=== PATIENT | female | born 1950 | race Caucasian/White ===

== ENCOUNTER 2016-08-29 01:30 | Inpatient (IN) | payer OTHER ==
[2016-08-29 02:25] VITALS: BP 127/61
[2016-08-29] MEDS ORDERED: Magnesium Hydroxide (MOM) 30 mL UDC PO PRN (03:53)
[2016-08-29] MEDS ORDERED: Maalox 30 mL Cup PO PRN (03:53)
[2016-08-29] MEDS: D5-0.9%NS 1,000 ML IV SCH ×2 (04:27→21:24)
[2016-08-29] MEDS: metroNIDAZOLE 500mg/NS 100mL 500 MG/100 ML BAG IV SCH ×3 (06:27→21:25)
[2016-08-29 08:32] LABS: HEMATOCRIT 31.8 % (35.0-45.0); HEMOGLOBIN 11.1 gm/dL (11.7-15.5); MEAN CELL VOLUME 84.6 fl (81-100); MEAN CORPUSCULAR HEMOGLOBIN 29.5 pg (27.0-31.0); MEAN CORPUSCULAR HGB CONC 34.9 pg (28.0-36.0); MEAN PLATELET VOLUME 8.2 fl; PLATELET COUNT 368 Th/cmm (150-400); RED BLOOD COUNT 3.76 Mil/cmm (3.80-5.10); RED CELL DISTRIBUTION WIDTH 13.8 % (11.5-20.0); WHITE BLOOD COUNT 12.8 Th/cmm (4.8-10.8)
[2016-08-29 08:45] LABS: ALB/GLOB RATIO 1.1 (1.0-1.8); ANION GAP 8.6 (7.0-16.0); BILIRUBIN,TOTAL 0.4 mg/dL (0.3-1.0); BUN/CREATININE RATIO 23.3; CALCIUM SERUM 9.2 mg/dL (8.6-10.3); CARBON DIOXIDE 24.2 mEq/L (21.0-31.0); CREATININE - SERUM 1.2 mg/dL (0.6-1.2); POTASSIUM SERUM 3.8 mEq/L (3.5-5.1)
[2016-08-29] MEDS: Ciprofloxacin 400mg Premix PB 400 MG/200 ML BAG IV SCH ×2 (08:56→18:05)
[2016-08-29 10:07] LABS: BAND NEUTROPHILE 7 % (0-10); NEUTROPHILS 78 % (40-80); PLATELET ESTIMATE ADEQUATE (NORMAL); PLATELET MORPHOLOGY PLATELET CLUMPS SEEN (NORMAL); TOTAL CELLS COUNTED 100
[2016-08-29] MEDS ORDERED: VTE Chemical Prophylaxis Screen/Admission MC PRN (10:30)
[2016-08-29] MEDS: Hydrocodone/APAP 10 mg/325 mg Tab PO PRN (14:56)
[2016-08-29 15:52] LABS: C-REACTIVE PROTEIN 20.8 mg/dL (0.0-0.9)
[2016-08-29] MEDS: Hydrocodone/APAP 5mg/325mg Tab PO PRN (21:24)
--- NOTE | 2016-08-30 00:42 | History & Physical ---
Gilbert Snyder MD covering for Amit. Lillian MD. HISTORY OF PRESENT ILLNESS: This patient is being admitted on transfer from [facility], as she was admitted over there in the Emergency Room with a syncopal episode. According to history obtained from the , the patient is drowsy after giving the pain medicines. She has flu-like symptoms. For that, she was treated, and also having nausea and vomiting at the same time. She started having abdominal pain, got constipated, has had nausea and vomiting and after 3 or 4 days, she started having diarrhea, which was frequent liquid motions. She denies that she has taken any medicine for constipation like a purgative or a laxative. When this was happening, she was feeling very weak and tired. She was getting dizzy on standing out of the bed or out of the chair, especially getting out of the bed. She had these episodes and then fell down on few occasions. Lately, she had sprained her left foot. X-ray was done at [facility], which shows no fracture, but has sprain. As the patient is having these multiple problems going on, the patient is being admitted for further management on transfer from [facility]. At [place] [facility], she underwent a CT abdomen, which shows that she has diverticulosis and some colitis, generalized type, no diverticulitis and this diverticulosis is mainly in the sigmoid colon, and that is why the diffuse wall thickening and colonic edema, has diffuse colitis, especially sigmoid colon. 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 Multiple degenerative joint disease. Liver is normal. Gallbladder is unremarkable. The spleen, pancreas and adrenal glands are unremarkable. Some perinephric free fluid, small amount, could be secondary to infection. Her leukocytes were showing above 18 and lactate was 2. Here on lab work showing she has leukocytosis with WBC count of 12.8 with a left shift. Sodium is elevated at 134 and BUN is elevated slightly to 28, glucose 136, C-reactive protein is 20, albumin is 3.2. PAST MEDICAL HISTORY: History of hypertension, has had some hemorrhage to the right eye and is scheduled for the MRI of the right orbit for further ophthalmological treatment. Has history of CVA. Partial bowel resection. ALLERGIES: None known. PERSONAL HISTORY: Smoking 1 pack per day since age of the late teens and early 20s until 2 years ago. Denies of any drug or alcohol abuse. FAMILY HISTORY: Nothing contributory. REVIEW OF SYSTEMS: Nothing contributory except as mentioned above. PHYSICAL EXAMINATION: GENERAL: The patient is a 66-year-old female. She is sleepy and lethargic at this time. Not in acute distress. VITAL SIGNS: Temperature is 98.5 to 98.8, heart rate is 97, blood pressure 101/57, had been first 100/71, respiration is 18 to 20 range and O2 saturation on 2 L by nasal cannula is 89% to 92%. HEENT: Normal, although the vision could not be evaluated as the patient is sleepy. NECK: Supple. JVP is flat. No lymphadenopathy. CHEST: Equal lung bilaterally. No chest wall tenderness. LUNGS: Clinically clear. CARDIOVASCULAR SYSTEM: PMI not palpable. Heart sounds are normal. No gallop or murmur is appreciated. ABDOMEN: Soft, but tender in the left lower quadrant area. Bowel sounds are present. [employer]: Grossly normal. EXTREMITIES: No edema. No cyanosis. Left foot has some edema with obvious tenderness and there is a sprain post-injury. IMPRESSION: Abdominal pain, nausea, vomiting and diarrhea, etiology undetermined at this time, possible colitis causing this problem, to be evaluated further. Hypertension is controlled. The syncopal episode most likely secondary to dehydration and causing postural hypotension, has prerenal azotemia secondary to dehydration. Hypertension is controlled. Possibility of sepsis is yet to be evaluated. History of cerebrovascular accident, history of right eye hemorrhage and other medical problem as above. PLAN: Dr. Whitley for ID consult has been requested and who has seen the patient already, started IV antibiotics. Keep her with some liquid diet, control nausea, vomiting and diarrhea. Correct the electrolytes as needed. Further workup and management as needed. JOB# [id number] [facility] DIVISIONPe[facility]
[2016-08-30] MEDS: Hydrocodone/APAP 5mg/325mg Tab PO PRN (03:55)
[2016-08-30] MEDS: Ciprofloxacin 400mg Premix PB 400 MG/200 ML BAG IV SCH ×2 (04:11→16:36)
[2016-08-30] MEDS: metroNIDAZOLE 500mg/NS 100mL 500 MG/100 ML BAG IV SCH ×3 (05:35→20:25)
[2016-08-30] MEDS: Hydrocodone/APAP 10 mg/325 mg Tab PO PRN ×2 (06:41→13:14)
[2016-08-30 07:28] LABS: % BASOPHILS 0.6 % (0.0-2.0); % EOSINOPHILS 0.5 % (0.0-5.0); % LYMPHOCYTES 13.7 % (20.0-50.0); % MONOCYTES 7.3 % (2.0-10.0); % NEUTROPHILS 77.9 % (40.0-80.0); HEMATOCRIT 29.3 % (35.0-45.0); HEMOGLOBIN 10.2 gm/dL (11.7-15.5); MEAN CELL VOLUME 84.6 fl (81-100); MEAN CORPUSCULAR HEMOGLOBIN 29.3 pg (27.0-31.0); MEAN CORPUSCULAR HGB CONC 34.7 pg (28.0-36.0); MEAN PLATELET VOLUME 8.1 fl; NEUTROPHILE ABSOLUTE 9.3 Th/cmm (1.8-8.0); PLATELET COUNT 348 Th/cmm (150-400); RED BLOOD COUNT 3.46 Mil/cmm (3.80-5.10); RED CELL DISTRIBUTION WIDTH 13.8 % (11.5-20.0)
[2016-08-30 07:48] LABS: ANION GAP 4.1 (7.0-16.0); BUN - UREA NITROGEN 16 mg/dL (7-25); CALCIUM SERUM 8.8 mg/dL (8.6-10.3); CARBON DIOXIDE 25.2 mEq/L (21.0-31.0); CHLORIDE 107 mEq/L (98-107); GLUCOSE 123 mg/dL (70-105); POTASSIUM SERUM 3.3 mEq/L (3.5-5.1); SODIUM SERUM 133 mEq/L (136-145)
[2016-08-30] MEDS: D5-0.9%NS 1,000 ML IV SCH (11:32)
[2016-08-30 12:43] LABS: URINE BILIRUBIN NEGATIVE (NEGATIVE); URINE BLOOD MODERATE (NEGATIVE); URINE COLOR YELLOW; URINE GLUCOSE (UA) NEGATIVE (NEGATIVE); URINE KETONE NEGATIVE (NEGATIVE); URINE PH 5.5; URINE PROTEIN TRACE mg/dL (NEGATIVE); URINE UROBILINOGEN 0.2 E.U./dL (0.2 - 1.0)
[2016-08-30 12:50] LABS: URINE BACTERIA MANY /hpf (NONE SEEN); URINE EPITHELIAL CELLS MODERATE /lpf (FEW)
[2016-08-30] MEDS ORDERED: Potassium Chloride 20 mEq ER Tab PO ONE (13:00)
--- NOTE | 2016-08-30 15:58 | Consultation ---
GASTROENTEROLOGY CONSULTATION REFERRING PHYSICIAN: Benigno Snyder M.D. REASON FOR CONSULTATION: Abdominal pain. HISTORY OF PRESENT ILLNESS: A 66-year-old female with history of old TIA, hypertension, partial bowel obstruction and C. diff colitis a year ago, admitted for a few day history of abdominal pain, nausea, vomiting and diarrhea. She initially had constipation. She had leukocytosis on admission at [place]. She was transferred here for further evaluation. A CT scan of the abdomen and pelvis at [place] showed pancolitis and diverticulosis. PAST MEDICAL HISTORY: As above. The patient never had a previous colonoscopy. PAST SURGICAL HISTORY: As above. MEDICATIONS: Here are Tylenol, [place], Maalox, Cipro, Flagyl, heparin subcutaneous, Ativan, Milk of Magnesia p.r.n., Zofran. ALLERGIES: No known drug allergies. SOCIAL HISTORY: Positive tobacco, no alcohol, no drugs. FAMILY HISTORY: Noncontributory. REVIEW OF SYSTEMS: Negative. PHYSICAL EXAMINATION: VITAL SIGNS: Temperature of 98.3, blood pressure is 131/85, pulse of 85, respirations 20, O2 sats 95% on 2 liters. GENERAL: The patient is well-developed, well-nourished female who is in mild distress. HEENT: Sclerae nonicteric. Oropharynx is clear. CARDIOVASCULAR: Regular rate and rhythm. LUNGS: Clear to auscultation bilaterally. ABDOMEN: Soft, slightly distended, mild left and lower quadrant tenderness to palpation without rebound or guarding. EXTREMITIES: No clubbing, cyanosis or edema. RECTAL: Deferred. LABORATORY DATA AND IMAGING: Initial WBC at [place] was 18, today is 12.0, hemoglobin is 10.2, platelet count is normal. Sodium 133, creatinine is 1.0. Liver enzymes are normal. CRP is elevated to 20.8. ASSESSMENT: 1. Abdominal pain with diarrhea and CT showing pancolitis, likely suggestive of C. diff colitis. Less likely other infectious colitis or perhaps ischemic colitis, history of C. diff colitis a year ago. 2. Leukocytosis, now improved. 3. Anemia. 4. History of old stroke and hypertension. 5. History of partial bowel resection. RECOMMENDATIONS: 1. Check stool studies. 2. Flagyl to be continued, ID home sales consultant on case. Consider oral Flagyl as well. 3. Add probiotics. 4. Clear liquid diet for now. Consider n.p.o. status if distention or leukocytosis worsen. 5. Eventual colonoscopy once C. diff colitis healed. This can be done as an outpatient. Thank you, Dr. Benigno Snyder for involving us in the care of your patient. Any further questions, please call us. JOB# [id number]
--- NOTE | 2016-08-30 20:33 | Consultation ---
PRIMARY CARE PHYSICIAN: Dr. Snyder. HISTORY OF PRESENT ILLNESS: This is a 66-year-old female who was initially taken to [facility] with abdominal pain localized to the upper and left side of the abdomen. The patient also was constipated and the patient's CAT scan shows colitis more on the sigmoid colon. The patient was transferred to [facility] for further treatment. Discussed with the family at bedside. Pertinent information obtained. The patient is unable to provide details of the history. PAST MEDICAL HISTORY: Hypertension, retinal hemorrhage, CVA, and bowel surgery. ALLERGIES: None. SOCIAL HISTORY: Ex-smoker. FAMILY HISTORY: No family history. REVIEW OF SYSTEMS: A 14-point review of systems negative. PHYSICAL EXAMINATION: GENERAL: The patient is an elderly female. VITAL SIGNS: Temperature 98.8, pulse 97, respirations 18, and blood pressure 101/57. HEENT: Mild pallor, no icterus or plaque. NECK: Supple. LUNGS: Breath sounds bilateral vesicular. CARDIOVASCULAR: S1, S2. ABDOMEN: Soft. Generalized abdominal tenderness. No thyroid and no cervical lymph nodes. No ascites. No rebound tenderness. LABORATORY DATA: Cultures are pending. White count 12,000, hemoglobin is 11 g, and platelets 368,000. DIAGNOSIS: Colitis. PLAN: We will check C. diff and stool culture. Empirically, the patient was started on Flagyl and Cipro. Supportive care. Repeat labs tomorrow. Rest of the care as ordered in CPOE. Thank you, Dr. Snyder for this consultation. JOB# [id number]
[2016-08-31] MEDS: D5-0.9%NS 1,000 ML IV SCH ×2 (01:55→17:45)
[2016-08-31] MEDS: Ciprofloxacin 400mg Premix PB 400 MG/200 ML BAG IV SCH ×2 (04:19→17:46)
--- NOTE | 2016-08-31 04:22 | Admit Criteria Form ---
Admit Criteria Forms - Admit Criteria Diagnosis: DEHYDRATION Clinical Indications for Admission to Inpatient Care (Place 'X' for any and all applicable criteria): Admission is indicated for ANY ONE of the following (1)(2)(3)(4)(5): [ X]I. Inpatient admission required rather than observation care (see Dehydration: Observation Care guideline as appropriate) because of ANY ONE of the following: [ ]a) Vomiting that is severe or persistent [ ]b) Severe electrolyte abnormalities requiring inpatient care [X ]c) Hemodynamic instability [ ]d) IV fluid to replace significant ongoing losses (greater than 3 L/m2 per day (10) (11) [ ]e) Parenteral nutrition regimen that must be implemented on inpatient basis [X ]f) Other condition,treatment or monitoring requiring inpatient admission [ ]II. Serious cause for dehydration requiring acute hospitalization (eg, bowel obstruction, increased intracranial pressure, infectious cause) Extended stay beyond goal length of stay may be needed for(1)(3 )(4)(17): [ ]a) Chronic severe dehydration [ ]b) Persistent vital sign changes, severe electrolyte imbalance, or diagnosed cause of dehydration that requires continued hospitalization (eg, bowel obstruction, increased intracranial pressure) [ ]c) Older patients (65 years or older) [ ]d) Severe comorbid illness (eg, renal failure, heart failure, poorly controlled diabetes) The original [employer] content created by [employer] has been revised. The portions of the content which have been revised are identified through the use of italic text or in bold, and [facility] has neither reviewed nor approved the modified material. All other unmodified content is copyright [facility]. Please see references footnoted in the original [facility] edition 2016 Admit Criteria Met?: Yes
[2016-08-31] MEDS: metroNIDAZOLE 500mg/NS 100mL 500 MG/100 ML BAG IV SCH ×3 (05:30→20:37)
[2016-08-31] MEDS: Hydrocodone/APAP 5mg/325mg Tab PO PRN ×2 (05:30→13:26)
[2016-08-31 07:57] LABS: ANION GAP 8.7 (7.0-16.0); BUN - UREA NITROGEN 7 mg/dL (7-25); BUN/CREATININE RATIO 8.8; CALCIUM SERUM 8.9 mg/dL (8.6-10.3); CARBON DIOXIDE 24.8 mEq/L (21.0-31.0); CHLORIDE 105 mEq/L (98-107); CREATININE - SERUM 0.8 mg/dL (0.6-1.2); GLUCOSE 125 mg/dL (70-105); POTASSIUM SERUM 3.5 mEq/L (3.5-5.1); SODIUM SERUM 135 mEq/L (136-145)
[2016-08-31] MEDS: Hydrocodone/APAP 10 mg/325 mg Tab PO PRN (22:11)
[2016-09-01] MEDS: metroNIDAZOLE 500mg/NS 100mL 500 MG/100 ML BAG IV SCH ×3 (04:24→20:29)
[2016-09-01] MEDS: Hydrocodone/APAP 10 mg/325 mg Tab PO PRN ×2 (05:35→20:29)
[2016-09-01] MEDS: Ciprofloxacin 400mg Premix PB 400 MG/200 ML BAG IV SCH ×2 (06:02→16:10)
[2016-09-01] MEDS: D5-0.9%NS 1,000 ML IV SCH ×2 (06:06→16:32)
[2016-09-01 07:41] LABS: % EOSINOPHILS 2.3 % (0.0-5.0); % LYMPHOCYTES 22.1 % (20.0-50.0); % MONOCYTES 5.8 % (2.0-10.0); % NEUTROPHILS 68.8 % (40.0-80.0); HEMATOCRIT 27.1 % (35.0-45.0); HEMOGLOBIN 9.3 gm/dL (11.7-15.5); MEAN CORPUSCULAR HEMOGLOBIN 29.5 pg (27.0-31.0); MEAN CORPUSCULAR HGB CONC 34.2 pg (28.0-36.0); MEAN PLATELET VOLUME 7.8 fl; NEUTROPHILE ABSOLUTE 5.1 Th/cmm (1.8-8.0); PLATELET COUNT 361 Th/cmm (150-400); RED BLOOD COUNT 3.16 Mil/cmm (3.80-5.10); RED CELL DISTRIBUTION WIDTH 13.5 % (11.5-20.0)
[2016-09-01 08:07] LABS: ANION GAP 6.8 (7.0-16.0); BUN - UREA NITROGEN 4 mg/dL (7-25); CALCIUM SERUM 8.7 mg/dL (8.6-10.3); CARBON DIOXIDE 28.9 mEq/L (21.0-31.0); CHLORIDE 105 mEq/L (98-107); CREATININE - SERUM 0.8 mg/dL (0.6-1.2); GLUCOSE 166 mg/dL (70-105); POTASSIUM SERUM 3.7 mEq/L (3.5-5.1); SODIUM SERUM 137 mEq/L (136-145)
[2016-09-01 08:13] LABS: WHITE BLOOD COUNT 7.4 Th/cmm (4.8-10.8)
--- NOTE | 2016-09-01 15:10 | Infectious Disease Prog Note ---
Infectious Disease Subjective - Review of Systems Service Date: 09/01/16 Subjective: cc colitis hpi- pt wbc 7k on iv bxa ros no fever o/e vss chets claer abd soft less tender dx diverticuliutios plan cipro flagyl; Physical Exam: General: Alert and Oriented x3, No Acute Distress HEENT: EOMI Bilaterally, PERRLA Bilaterally, Head is normocephalic, atraumatic on inspection. Cardio: +S1/S2 Auscultated, RRR, no murmurs/rubs/gallops noted Respiratory: Clear to Auscultate Bilaterally Abdominal: Soft, Nondistended, tender to palpation x 4 quadrants Genital/Urinary: Extremities: No Edema noted in the lower extremities Neurological: Cranial Nerves II-XII intact bilaterally, Gait Steady, No Focal Deficits noted. Infectious Disease Objective - Results Result Diagrams: 09/01/16 07:18 09/01/16 07:18 Recent Labs: Laboratory Last Values WBC 7.4 Th/cmm (4.8-10.8) D 09/01/16 07:18 RBC 3.16 Mil/cmm (3.80-5.10) L 09/01/16 07:18 Hgb 9.3 gm/dL (11.7-15.5) L 09/01/16 07:18 Hct 27.1 % (35.0-45.0) L 09/01/16 07:18 MCV 86.0 fl (81-100) 09/01/16 07:18 MCH 29.5 pg (27.0-31.0) 09/01/16 07:18 MCHC Differential 34.2 pg (28.0-36.0) 09/01/16 07:18 RDW 13.5 % (11.5-20.0) 09/01/16 07:18 Plt Count 361 Th/cmm (150-400) 09/01/16 07:18 MPV 7.8 fl 09/01/16 07:18 Neutrophils % 68.8 % (40.0-80.0) 09/01/16 07:18 Band Neutrophils % 7 % (0-10) 08/29/16 07:55 Lymphocytes % 22.1 % (20.0-50.0) 09/01/16 07:18 Monocytes % 5.8 % (2.0-10.0) 09/01/16 07:18 Eosinophils % 2.3 % (0.0-5.0) 09/01/16 07:18 Basophils % 1.0 % (0.0-2.0) 09/01/16 07:18 Neutrophils (Manual) 78 % (40-80) 08/29/16 07:55 Lymphocytes 12 % (20-50) L 08/29/16 07:55 Monocytes 3 % (2-10) 08/29/16 07:55 Platelet Estimate ADEQUATE (NORMAL) 08/29/16 07:55 Platelet Morphology PLATELET CLUMPS SEEN (NORMAL) 08/29/16 07:55 RBC Morph Micro Appear NORMAL (NORMAL) 08/29/16 07:55 ESR 73 mm/hr (0-30) H 09/01/16 07:18 Sodium 137 mEq/L (136-145) 09/01/16 07:18 Potassium 3.7 mEq/L (3.5-5.1) 09/01/16 07:18 Chloride 105 mEq/L (98-107) 09/01/16 07:18 Carbon Dioxide 28.9 mEq/L (21.0-31.0) 09/01/16 07:18 Anion Gap 6.8 (7.0-16.0) L 09/01/16 07:18 BUN 4 mg/dL (7-25) L 09/01/16 07:18 Creatinine 0.8 mg/dL (0.6-1.2) 09/01/16 07:18 Est GFR ( Amer) > 60.0 ml/min (>90) 09/01/16 07:18 Est GFR (Non-Af Amer) > 60.0 ml/min 09/01/16 07:18 BUN/Creatinine Ratio 5.0 09/01/16 07:18 Glucose 166 mg/dL (70-105) H 09/01/16 07:18 Calcium 8.7 mg/dL (8.6-10.3) 09/01/16 07:18 Total Bilirubin 0.4 mg/dL (0.3-1.0) 08/29/16 07:55 AST 11 U/L (13-39) L 08/29/16 07:55 ALT 8 U/L (7-52) 08/29/16 07:55 Alkaline Phosphatase 77 U/L (34-104) 08/29/16 07:55 C-Reactive Protein 6.00 mg/dL (0.0-0.9) H 09/01/16 07:18 Total Protein 6.2 gm/dL (6.0-8.3) 08/29/16 07:55 Albumin 3.2 gm/dL (3.7-5.3) L 08/29/16 07:55 Globulin 3.0 gm/dL 08/29/16 07:55 Albumin/Globulin Ratio 1.1 (1.0-1.8) 08/29/16 07:55 Urine Source CLEAN C 08/30/16 12:00 Urine Color YELLOW 08/30/16 12:00 Urine Clarity SL. CLOUDY (CLEAR) 08/30/16 12:00 Urine pH 5.5 08/30/16 12:00 Ur Specific Dennis (1.005-1.030) 08/30/16 12:00 Urine Protein TRACE mg/dL (NEGATIVE) 08/30/16 12:00 Urine Glucose (UA) NEGATIVE mg/dL (NEGATIVE) 08/30/16 12:00 Urine Ketones NEGATIVE mg/dL (NEGATIVE) 08/30/16 12:00 Urine Blood MODERATE (NEGATIVE) H 08/30/16 12:00 Urine Nitrate NEGATIVE (NEGATIVE) 08/30/16 12:00 Urine Bilirubin NEGATIVE (NEGATIVE) 08/30/16 12:00 Urine Urobilinogen 0.2 E.U./dL (0.2 - 1.0) 08/30/16 12:00 Ur Leukocyte Esterase SMALL (NEGATIVE) H 08/30/16 12:00 Urine RBC 3-6 /hpf (0-5) 08/30/16 12:00 Urine WBC 10-25 /hpf (0-5) H 08/30/16 12:00 Ur Epithelial Cells MODERATE /lpf (FEW) 08/30/16 12:00 Urine Bacteria MANY /hpf (NONE SEEN) 08/30/16 12:00 Stool Leukocyte NO WBC SEEN 08/31/16 08:10 - Physical Exam Vitals and I&O: Vital Signs Temp 97.4 F 09/01/16 12:07 Pulse 88 09/01/16 12:07 Resp 20 09/01/16 12:07 BP 143/69 09/01/16 12:07 Pulse Ox 98 09/01/16 12:07 Intake & Output 08/31/16 09/01/16 09/01/16 18:59 06:59 18:59 Intake Total 1540 1400 Balance 1540 1400 Intake: Intake, IV Amount 1300 1200 Ciprofloxacin 400mg 200 Premix PB 400 mg In 200 ml @ 200 mls/hr IV Q12H [facility] Rx#:[id number] D5-0.9%Ns 1,000 ml @ 100 1000 1000 mls/hr IV .Q10H [facility] Rx#: [id number] metroNIDAZOLE 500mg/NS 100 200 100mL 500 mg In 100 ml @ 100 mls/hr IV Q8HR [facility] Rx #:[id number] Oral 240 200 Other: # Voids 5 2 # Bowel Movements 3 Stool Characteristics Soft Soft Liquid Liquid Active Medications: Current Medications Acetaminophen (Tylenol) 650 mg PO Q6H PRN PRN Reason: Mild Pain/Headache/T above 101 Stop: 10/28/16 03:52 Acetaminophen/Hydrocodone Bitart ([place] 10 Mg/325 Mg) 1 tab PO Q6H PRN PRN Reason: Pain (Severe) Stop: 10/28/16 03:52 Last Admin: 09/01/16 05:35 Dose: 1 tab Acetaminophen/Hydrocodone Bitart ([place] 5mg/325mg) 1 tab PO Q6H PRN PRN Reason: Moderate Pain Stop: 10/28/16 03:52 Last Admin: 08/31/16 13:26 Dose: 1 tab Al Hydrox/Mg Hydrox/Simethicone (Maalox) 30 ml PO Q6H PRN PRN Reason: Constipation Stop: 10/28/16 03:52 Heparin Sodium (Porcine) (Heparin) 5,000 units SUBQ Q12HR [facility] Stop: 10/28/16 20:59 Last Admin: 09/01/16 09:47 Dose: 5,000 units Dextrose/Sodium Chloride (D5-0.9%Ns) 1,000 mls @ 100 mls/hr IV .Q10H [facility] Stop: 10/28/16 03:59 Last Admin: 09/01/16 06:06 Dose: 100 mls/hr Ciprofloxacin (Cipro 400mg Premix Pb) 400 mg in 200 mls @ 200 mls/hr IV Q12H [facility] Stop: 10/28/16 04:59 Last Admin: 09/01/16 06:02 Dose: 200 mls/hr Metronidazole (Flagyl) 500 mg in 100 mls @ 100 mls/hr IV Q8HR [facility] Stop: 10/28/16 04:59 Last Admin: 09/01/16 14:14 Dose: 100 mls/hr Lorazepam (Ativan) 1 mg PO Q6H PRN; Protocol PRN Reason: Anxiety/Agitation Stop: 10/28/16 03:52 Magnesium Hydroxide (Milk Of Magnesia) 30 ml PO HS PRN PRN Reason: Constipation Stop: 10/28/16 03:52 Miscellaneous (Vte Chemical Prophylaxis Screen/ Admission) 1 ea [facility] PRN PRN PRN Reason: PROTOCOL Stop: 10/28/16 10:29 Ondansetron HCl (Zofran) 4 mg IVP Q6H PRN PRN Reason: Nausea / Vomiting Stop: 10/28/16 03:52 Last Admin: 08/31/16 01:55 Dose: 4 mg
[2016-09-01] MEDS: Hydrocodone/APAP 5mg/325mg Tab PO PRN (16:10)
--- NOTE | 2016-09-01 17:50 | Progress Notes ---
SUBJECTIVE: The patient is awake, alert. The patient is on oxygenation. The patient is on IV antibiotics. The patient is on IV fluids. The patient complains of abdominal pain. PHYSICAL EXAMINATION: VITAL SIGNS: Temperature 98.2, pulse 87, blood pressure 158/67, respiratory rate 18, pulse ox 97% on 2 L nasal cannula. CARDIOVASCULAR: S1 and S2. RESPIRATORY: Few rales. ABDOMEN: Soft, diffuse tenderness, nondistended, positive bowel sounds. LABORATORY DATA: Hematology: No hematology for today. Chemistry: Sodium 135, potassium 3.5, chloride 105, bicarbonate 24, anion gap 8.7, BUN 7, creatinine 0.8, GFR is more 60, glucose 125, calcium 8.9. Microbiology: MRSA screen negative. Culture from 08/30/2016 pending. Stool study is pending. ASSESSMENT: 1. Sepsis. 2. Abdominal pain. 3. Diarrhea. 4. Pancolitis. 5. Nausea and vomiting (improved). 6. Hypertension. 7. Syncope (secondary to dehydration). 8. History of hemorrhage to right eye. 9. History of cerebrovascular accident. 10. Status post partial bowel obstruction. 11. History of tobacco abuse. PLAN: Continue current medications and treatment. Continue IV fluids. Awaiting culture results. Further recommendation per consult service. [facility]# [id number] [facility]
[2016-09-01] MEDS ORDERED: GENTAMICIN 40 MG/ML ONE ×2 (19:33→21:22)
[2016-09-01] MEDS: Gentamicin 100mg/100mL Premix Bag IV SCH (23:42)
[2016-09-02] MEDS: metroNIDAZOLE 500mg/NS 100mL 500 MG/100 ML BAG IV SCH ×3 (04:55→20:36)
[2016-09-02] MEDS: Ciprofloxacin 400mg Premix PB 400 MG/200 ML BAG IV SCH ×2 (05:51→17:20)
--- NOTE | 2016-09-02 06:15 | Progress Notes ---
SUBJECTIVE: The patient is awake, alert. The patient is on IV antibiotics. The patient is on IV fluids. The patient is on clear liquid diet. The patient has complaints of abdominal pain. PHYSICAL EXAMINATION: VITAL SIGNS: Temperature 97.4, pulse 88, blood pressure 143/69, respiratory rate 20. CARDIOVASCULAR: S1 and S2. RESPIRATORY: Few rales. ABDOMEN: Soft, positive bowel sounds, diffuse tenderness, nondistended. LABORATORY DATA: Hematology: WBC 7.4, hemoglobin 9.3, hematocrit 27.1, platelet count of 361. ESR is 73. Chemistry: Sodium 137, potassium 3.7, chloride 105, bicarbonate 28.9, anion gap 6.8, BUN 4, creatinine 0.8, GFR is more than 60, glucose 166, calcium 8.7. Microbiology: MRSA screening from August 29 negative. Urine culture from August 30 pending. Blood culture from August 31 pending. Shigella toxin from August 31 negative. ASSESSMENT: 1. Abdominal pain (improved). 2. Nausea/vomiting, (resolved). 3. Diarrhea (resolved). 4. Pancolitis. 5. Hypertension. 6. Syncope (resolved). 7. History of cerebrovascular accident. 8. Status post partial bowel resection. 9. Leukocytosis (improved). 10. Anemia. 11. Hyperglycemia. PLAN: Continue current medication. Obtain labs a.m. Await final culture results. Continue advanced diet as tolerated. JOB# [id number] MTDD
[2016-09-02 07:00] LABS: % BASOPHILS 1.1 % (0.0-2.0); % EOSINOPHILS 2.4 % (0.0-5.0); % LYMPHOCYTES 19.2 % (20.0-50.0); % MONOCYTES 7.1 % (2.0-10.0); % NEUTROPHILS 70.2 % (40.0-80.0); HEMATOCRIT 29.6 % (35.0-45.0); HEMOGLOBIN 10.1 gm/dL (11.7-15.5); MEAN CELL VOLUME 85.4 fl (81-100); MEAN PLATELET VOLUME 7.9 fl; NEUTROPHILE ABSOLUTE 5.4 Th/cmm (1.8-8.0); PLATELET COUNT 380 Th/cmm (150-400); RED BLOOD COUNT 3.47 Mil/cmm (3.80-5.10); RED CELL DISTRIBUTION WIDTH 14.2 % (11.5-20.0); WHITE BLOOD COUNT 7.8 Th/cmm (4.8-10.8)
[2016-09-02 07:07] LABS: ANION GAP 4.5 (7.0-16.0); BUN - UREA NITROGEN 3 mg/dL (7-25); BUN/CREATININE RATIO 4.3; CARBON DIOXIDE 30.4 mEq/L (21.0-31.0); CHLORIDE 105 mEq/L (98-107); CREATININE - SERUM 0.7 mg/dL (0.6-1.2); GLUCOSE 137 mg/dL (70-105); SODIUM SERUM 137 mEq/L (136-145)
[2016-09-02 07:24] LABS: POTASSIUM SERUM 2.9 mEq/L (3.5-5.1)
[2016-09-02] MEDS: Gentamicin 100mg/100mL Premix Bag IV SCH ×2 (08:33→11:22)
[2016-09-02] MEDS: Hydrocodone/APAP 10 mg/325 mg Tab PO PRN ×2 (08:56→22:44)
[2016-09-02] MEDS: D5-0.9%NS 1,000 ML IV SCH (10:47)
[2016-09-02] MEDS ORDERED: Potassium Chloride 40 MEQ, Lidocaine 1% 20mL Vial 25 MG in Sodium Chloride 0.9% 250 ML IV ONE (11:00)
[2016-09-02] MEDS ORDERED: Magnesium Citrate 1.75 GM/300 mL Bottle PO ONE (21:07)
[2016-09-02] MEDS ORDERED: Magnesium Citrate 1.75 GM/300 mL Bottle PO SCH (21:30)
[2016-09-02] MEDS ORDERED: GENTAMICIN 40 MG/ML ONE (22:59)
[2016-09-03] MEDS: D5-0.9%NS 1,000 ML IV SCH ×2 (01:29→16:19)
[2016-09-03] MEDS: metroNIDAZOLE 500mg/NS 100mL 500 MG/100 ML BAG IV SCH ×3 (04:38→23:22)
--- NOTE | 2016-09-03 05:32 | Progress Notes ---
SUBJECTIVE: The patient is awake and alert. Per , the patient is more lethargic. The patient is on IV antibiotics. The patient is on IV fluids. The patient is on oxygen via nasal cannula. The patient is receiving inpatient rehab therapy. PHYSICAL EXAMINATION: VITAL SIGNS: Temperature 97.2, pulse 80, blood pressure 141/64, respiration 16, O2 sat 94% on 2 liters nasal cannula. CARDIAC: S1, S2. RESPIRATORY: A few rales. GASTROINTESTINAL: Soft and tender. Positive bowel sounds. LABORATORY DATA: Hematology: WBC 7.8, hemoglobin 10.1, hematocrit 29.6, and platelet count of 380,000. 19% lymphocytes, ESR 68. Chemistry: Sodium 137, potassium 2.9, chloride 105, bicarb 30, anion gap of 4.5, BUN 3, creatinine 0.7, GFR 160. Glucose is 137. Calcium 9.0. Microbiology: MRA screen from 08/29/2016, negative. Urine culture from 08/30/2016, shows mixed urogenital janessa including yeast. Blood culture from 08/31/2016, shows no growth. Stool culture from 08/31/2016, shows yeast only. Shiga toxin from 08/31/2016, negative. ASSESSMENT: 1. Anemia. 2. Hyperkalemia. 3. Hyperglycemia. 4. Abdominal pain (improved). 5. Sepsis. 6. Pancolitis. 7. Diarrhea (resolved). 8. Nausea and vomiting (improved). 9. Hypertension. 10. Syncope (secondary to dehydration). 11. History of hemorrhage, right eye. 12. History of cerebrovascular accident. 13. Status post bowel resection. 14. History of tobacco abuse. PLAN: Continue current medication and treatment. Continue IV fluids. Awaiting final culture results. Continue advanced diet as tolerated. Further recommendations per consults. JOB# [id number]
[2016-09-03] MEDS: Ciprofloxacin 400mg Premix PB 400 MG/200 ML BAG IV SCH ×2 (05:56→16:19)
[2016-09-03 07:01] LABS: % EOSINOPHILS 1.8 % (0.0-5.0); % LYMPHOCYTES 20.2 % (20.0-50.0); % MONOCYTES 6.2 % (2.0-10.0); % NEUTROPHILS 71.8 % (40.0-80.0); HEMATOCRIT 30.9 % (35.0-45.0); HEMOGLOBIN 10.6 gm/dL (11.7-15.5); MEAN CELL VOLUME 86.6 fl (81-100); MEAN CORPUSCULAR HEMOGLOBIN 29.6 pg (27.0-31.0); MEAN CORPUSCULAR HGB CONC 34.2 pg (28.0-36.0); MEAN PLATELET VOLUME 7.8 fl; PLATELET COUNT 386 Th/cmm (150-400); RED BLOOD COUNT 3.57 Mil/cmm (3.80-5.10); WHITE BLOOD COUNT 8.3 Th/cmm (4.8-10.8)
[2016-09-03 07:09] LABS: INR 1.79 (0.5-1.4); PROTHROMBIN TIME (TEST) 18.4 SECONDS (9.5-11.5)
[2016-09-03 08:26] LABS: ANION GAP 2.7 (7.0-16.0); BUN - UREA NITROGEN 3 mg/dL (7-25); CALCIUM SERUM 8.8 mg/dL (8.6-10.3); CHLORIDE 104 mEq/L (98-107); CREATININE - SERUM 0.6 mg/dL (0.6-1.2); GLUCOSE 135 mg/dL (70-105); SODIUM SERUM 136 mEq/L (136-145)
[2016-09-03 08:30] LABS: POTASSIUM SERUM 2.7 mEq/L (3.5-5.1)
[2016-09-03] MEDS ORDERED: Potassium Chloride 40 MEQ, Lidocaine 1% 20mL Vial 25 MG in Sodium Chloride 0.9% 250 ML IV ONE (09:15)
--- NOTE | 2016-09-03 09:22 | Diagnostic Imaging Report ---
CHEST X-RAY: AP view INDICATION: Shortness of breath COMPARISON: None FINDINGS: There is complete opacification of the left hemithorax. Heart size cannot be assessed on this exam. The right lung demonstrates no focal consolidation. The osseous structures are intact. IMPRESSION: Complete opacification of the left hemithorax which may be due to lung collapse and pleural effusion and possible superimposed pneumonia. There may have been surgery of the left lung. Please correlate with clinical findings and old exams. Short-term follow-up CT of the chest would also provide for additional detail and assessment. Atherosclerotic vascular disease. Results were administered to the referring team on 09/03/2016
[2016-09-03] MEDS ORDERED: Magnesium Citrate 1.75 GM/300 mL Bottle PO ONE (09:42)
[2016-09-03] MEDS: Hydrocodone/APAP 10 mg/325 mg Tab PO PRN ×2 (11:34→17:10)
[2016-09-03] MEDS ORDERED: IOHEXOL 300MG/ML 100 ML VIAL IVP ONE (14:16)
--- NOTE | 2016-09-03 15:17 | Diagnostic Imaging Report ---
CT Chest with IV contrast HISTORY: Left lung opacification, pneumonia, effusion COMPARISON: Chest x-ray earlier the same day. Technique: Axial images were obtained from the base of the neck to the upper abdomen following administration of IV contrast. Coronal reconstructions were made. Total DLP 209, CTD I 6.8 Findings: Abnormal soft tissue density with areas of low density are seen along the pericarinal regions extending to the left hilar region with likely enlarged left AP window lymph node measuring 2.5 x 1.8 cm. There is also 4.0 x 3.6 cm soft tissue density along the left hilum with encasement of the left pulmonary vasculature including marked encasement and decreased caliber of the left pulmonary arteries and. There is also indicate and obliteration of the left main stem bronchi and collapse of the left lung. Atelectatic right lung changes are noted. A moderate sized left effusion is noted. Heart size is within normal limits. Atherosclerosis is noted including coronary artery calcifications. The upper abdomen demonstrates diffuse atherosclerosis with there is a calcified and soft plaque formation. IMPRESSION: Large abnormal soft tissue density along the left hilar region with involvement of the mediastinum and a few prominent mediastinal lymph nodes which may be partially necrotic. There is encasement and partial obliteration of the left hilar vasculature including the pulmonary arteries with marked decrease in caliber and probable invasion into the left pulmonary arteries. There is also obliteration of the left mainstem bronchus. These findings are most insurance account representative of neoplastic process/probable primary bronchogenic lung cancer. Please correlate clinically. Follow-up recommended. Moderate atherosclerosis.
[2016-09-03] MEDS: Albuterol/Ipratropium Neb 3 ML AERS HHN SCH ×2 (15:48→20:03)
[2016-09-03] MEDS: Budesonide 0.5 Mg/2 mL Ud HHN SCH (20:03)
--- NOTE | 2016-09-03 21:08 | Consultation ---
HEMATOLOGY AND ONCOLOGY CONSULTATION REFERRING PHYSICIAN: Dr. Benigno Snyder. REASON FOR CONSULTATION: Lung mass, possible cancer. HISTORY OF PRESENT ILLNESS: The patient is a 66-year-old female who was having initially constipation followed by ____ weakness and collapse at home. She was found to have hypokalemia and further workup with chest x-ray showed white-out of the left lung and CT scan confirmed presence of left hilar mass; therefore, I was asked to evaluate. The history is gathered from the who is a good historian and he stated that she had problems with her right eye and she was supposed to have an MRI as an outpatient when her illness started. History of TIA and hypertension. The patient was initially admitted to [facility] and then transferred to our hospital. SOCIAL HISTORY: . Works with her in their private business. She is a lifelong smoker. MEDICATIONS: Reviewed. REVIEW OF SYSTEMS: The patient admitted the right eye problems and having cough with a tinge of blood for the past few months. Denied shortness of breath. Admits weakness and abdominal pain. PHYSICAL EXAMINATION: GENERAL: Awake, alert, oriented and chronically ill looking. VITAL SIGNS: Stable. HEENT: Right eye deviation medially and unable to do a lateral gaze with the right eye; otherwise, no other cranial nerve palsy. NECK: No lymphadenopathy and no suprapubic lymphadenopathy. CHEST: Clear. ABDOMEN: Soft and benign. EXTREMITIES: No edema. No focal weakness in the extremities. LABORATORY DATA: White count 8.3, hemoglobin 10.6 and platelets 386. INR 1.79. Potassium 2.7. IMAGING STUDIES: CT scan of the chest reported left hilar mass with involvement of the mediastinum and prominent mediastinal lymph nodes, encasement and partial obliteration of the left hilar vasculature and arteries, probable invasion into the left pulmonary arteries and the left mainstem bronchus. ASSESSMENT: Lung mass with possible elevation of the left pulmonary artery and left mainstem bronchus in this patient who is lifelong smoker, presenting with blood-tinged sputum and right abducens nerve palsy raising suspicion of metastatic lung cancer to the brain. Bronchoscopy with biopsy will be my recommendation, also MRI of the drain to evaluate for possible breast mets. Case was discussed with the at the bedside. Further management will be addressed, will be outlined based on the findings on the above workup. Thank you, Dr. Snyder for the opportunity to participate in the care of this interesting case for you. JOB# [id number]
[2016-09-04] MEDS: metroNIDAZOLE 500mg/NS 100mL 500 MG/100 ML BAG IV SCH ×3 (04:30→22:04)
[2016-09-04] MEDS: Ciprofloxacin 400mg Premix PB 400 MG/200 ML BAG IV SCH ×2 (05:42→18:33)
[2016-09-04] MEDS: Hydrocodone/APAP 10 mg/325 mg Tab PO PRN (05:46)
[2016-09-04 07:25] LABS: % BASOPHILS 0.9 % (0.0-2.0); % EOSINOPHILS 2.2 % (0.0-5.0); % LYMPHOCYTES 19.2 % (20.0-50.0); % MONOCYTES 7.1 % (2.0-10.0); % NEUTROPHILS 70.6 % (40.0-80.0); HEMATOCRIT 30.1 % (35.0-45.0); HEMOGLOBIN 10.4 gm/dL (11.7-15.5); MEAN CORPUSCULAR HEMOGLOBIN 29.3 pg (27.0-31.0); MEAN CORPUSCULAR HGB CONC 34.5 pg (28.0-36.0); PLATELET COUNT 435 Th/cmm (150-400); RED BLOOD COUNT 3.54 Mil/cmm (3.80-5.10); RED CELL DISTRIBUTION WIDTH 14.4 % (11.5-20.0); WHITE BLOOD COUNT 8.6 Th/cmm (4.8-10.8)
--- NOTE | 2016-09-04 07:26 | Progress Notes ---
PULMONARY/CRITICAL CARE CONSULTATION REASON FOR CONSULTATION: Abnormal chest x-ray. HISTORY OF PRESENT ILLNESS: This is a 66-year-old female who initially was transferred to [facility] from the Emergency Room where she presented with possibly a syncopal attack. The patient had extensive workup done including for GI issue with abdomen pain, etc., and also the patient was subsequently being seen by back tender and slip cover seamstress as the patient also she had some issues with pain, pain control, etc. The patient's subsequent routine chest x-ray was found abnormal. Hence, I was asked to see this patient for further care and necessary treatment. The patient did have flu like symptom prior to coming to the hospital, though exact nature of it is not clear. 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 The patient is lethargic, arousable, not very good history, gives history of very heavy smoking, has complaints of occasionally coughing. Denies of any shortness of breath, any pleuritic chest pain, any hemoptysis, any swelling of the legs, any PND and orthopnea, though the patient's history is not very much reliable at this particular time. PAST MEDICAL HISTORY: History of colitis, history of hypertension, history of prerenal azotemia and history of previous flu-like symptoms prior to coming to the hospital. SOCIAL HISTORY: The patient denies smoking, history of two pack for many years, could not quantified. MEDICATIONS: Does not recall as to what medication she is taking at home. PHYSICAL EXAMINATION: GENERAL: This is an elderly looking female, fairly good built, awake, sleepy and arousable, not in any acute distress. VITAL SIGNS: The patient's recorded vitals: Temperature is 97.8, respirations in high teens, saturation is 93% on 2 liters of oxygen. HEENT: Examination of the head is essentially unremarkable. Pupils appear to be equal and reacting to light. Oral cavity shows fair dental hygiene with small oropharyngeal opening. NECK: No nodes in the neck could be palpated. CHEST: Finding shows practically no air entry in the left side of the lung and the right side appears to be clear. No other adventitious breath sounds. ABDOMEN: Soft and nontender. EXTREMITIES: Shows no peripheral edema. IMAGING STUDIES: The patient's chest x-ray shows complete whiteout lung on the left side though there is no shift in mediastinum. LABORATORY DATA: The patient's white count is 8.3 and hemoglobin 10.6. Potassium is 2.7 and BUN is 3 and electrolytes otherwise essentially unremarkable. IMPRESSION: The patient has complete atelectasis of the left lung, exact etiology is not clear, history is not very reliable. History of smoking, history of flu-like symptoms, suspect this is a mucus plug most likely though with history of heavy smoking underlying, endobronchial lesion cannot be totally ruled out. PLANS AND SUGGESTIONS: We will go and get: 1. Aggressive mucolytic medications, bronchodilator therapy. 2. We will get a CT of the chest with contrast, follow up the blood gases, follow up chest x-ray. We will add some Mucomyst to current treatment and see how she does in next 24-48 hours and go from there. If the thing does not improve and the CAT scan shows ____ complete atelectasis, may require endoscopic exam and go from there. Thank you very much for letting me to see this patient. I will be glad to follow along with you. JOB# [id number]
[2016-09-04 07:47] LABS: ANION GAP 4.2 (7.0-16.0); BUN - UREA NITROGEN 4 mg/dL (7-25); BUN/CREATININE RATIO 5.7; CARBON DIOXIDE 32.8 mEq/L (21.0-31.0); CHLORIDE 104 mEq/L (98-107); CREATININE - SERUM 0.7 mg/dL (0.6-1.2); GLUCOSE 120 mg/dL (70-105); SODIUM SERUM 138 mEq/L (136-145)
[2016-09-04] MEDS ORDERED: Potassium Chloride 20 mEq ER Tab PO ONE (08:22)
[2016-09-04] MEDS: Albuterol/Ipratropium Neb 3 ML AERS HHN SCH ×4 (08:29→19:50)
[2016-09-04] MEDS: Budesonide 0.5 Mg/2 mL Ud HHN SCH ×2 (08:30→19:50)
--- NOTE | 2016-09-04 11:38 | Diagnostic Imaging Report ---
CHEST X-RAY: 2 views INDICATION: Pneumonia COMPARISON: Chest CT on 09/03/2016 FINDINGS: There is persistent complete opacification of the left hemithorax. Please refer to CT chest the same day for further findings. IMPRESSION: No significant change in pulmonary status including persistent complete opacification of the left hemithorax.
--- NOTE | 2016-09-04 11:54 | Diagnostic Imaging Report ---
Head CT with intravenous contrast Indication: Brain metastases Comparison: None Technique: Axial images were obtained from the vertex to the skull base with IV contrast. Coronal reconstructions were made. Total DLP: 485, CTDI27 FINDINGS: There are numerous ring-enhancing mass lesions throughout the supratentorial and infratentorial regions the largest seen along the left frontal lobe measuring 1.5 cm. Areas of scattered vasogenic edema is noted. There is are areas of localized mass effect, greatest along the left frontal left parietal lobe regions. No evidence of midline shift. The basal cisterns are grossly patent. Metastases of the pontine regions are also noted. The osseous structures demonstrate no acute abnormalities. The visualized paranasal sinuses are clear. IMPRESSION: Numerous ring enhancing mass lesions throughout the cerebrum and cerebellum and also involving the elia. Findings are consistent with extensive metastatic disease. No midline shift at this time.
[2016-09-04] MEDS: D5-0.9%NS 1,000 ML IV SCH (12:11)
[2016-09-04 12:24] LABS: ABG SOURCE Arterial; BE(B) 11.3 mmol/L (-3.0-3.0); FIO2 32; HCO3 35.9 mmol/L (20.0-26.0)
[2016-09-04] MEDS: Hydrocodone/APAP 5mg/325mg Tab PO PRN ×2 (13:22→18:33)
[2016-09-04] MEDS ORDERED: Dexamethasone Sodium Phos 10 mg/mL PF Vial IVP SCH (13:30)
--- NOTE | 2016-09-04 15:52 | Diagnostic Imaging Report ---
CHEST X-RAY: AP view INDICATION: Status post left thoracentesis COMPARISON: Chest x-ray 09/04/2016 at 8:47 AM FINDINGS: The patient is status post left thoracentesis with decrease in size of left effusion. There is a probable left pneumothorax, size difficult to determine. Cardiomegaly is noted with atherosclerosis. IMPRESSION: Status post left thoracentesis with decrease in size of left effusion. There is a probable left pneumothorax, size is difficult to determine due to patient's left pleural effusion. Further assessment with CT chest examination is recommended. Critical results relayed to the referring team on 09/04/2015 at 3:48 PM.
--- NOTE | 2016-09-04 15:55 | Diagnostic Imaging Report ---
Ultrasound-guided left-sided thoracentesis HISTORY: Left pleural effusion COMPARISON: CT chest on 09/03/2016 Technique/procedure: Informed consent was obtained and sterile techniques were utilized. Using ultrasound guidance 0.5 liters of kendrick-colored fluid was drained from the left pleural space and sent to the laboratory for analysis. The patient tolerated the procedure without any immediate complications. A follow-up chest x-ray has been ordered. IMPRESSION: Successful left-sided ultrasound-guided thoracentesis as above.
[2016-09-04] MEDS: Dexamethasone Sodium Phos 4 mg/mL Vial IVP SCH ×2 (16:30→22:12)
[2016-09-04 16:53] LABS: BF AMYLASE 5 U/L; BF LDH-LABCORP 113 U/L; BF TOTAL PROTEIN-CVMC 2.1 g/dL
--- NOTE | 2016-09-04 18:25 | General Progress Note ---
Subjective - Review of Systems Service Date: 09/04/16 Subjective: EVENTS NOTED. NO N/V OR ABD PAIN. Objective - Results Result Diagrams: 09/04/16 06:00 09/04/16 06:00 Recent Labs: Laboratory Last Values WBC 8.6 Th/cmm (4.8-10.8) 09/04/16 06:00 RBC 3.54 Mil/cmm (3.80-5.10) L 09/04/16 06:00 Hgb 10.4 gm/dL (11.7-15.5) L 09/04/16 06:00 Hct 30.1 % (35.0-45.0) L 09/04/16 06:00 MCV 85.0 fl (81-100) 09/04/16 06:00 MCH 29.3 pg (27.0-31.0) 09/04/16 06:00 MCHC Differential 34.5 pg (28.0-36.0) 09/04/16 06:00 RDW 14.4 % (11.5-20.0) 09/04/16 06:00 Plt Count 435 Th/cmm (150-400) H 09/04/16 06:00 MPV 8.0 fl 09/04/16 06:00 Neutrophils % 70.6 % (40.0-80.0) 09/04/16 06:00 Band Neutrophils % 7 % (0-10) 08/29/16 07:55 Lymphocytes % 19.2 % (20.0-50.0) L 09/04/16 06:00 Monocytes % 7.1 % (2.0-10.0) 09/04/16 06:00 Eosinophils % 2.2 % (0.0-5.0) 09/04/16 06:00 Basophils % 0.9 % (0.0-2.0) 09/04/16 06:00 Neutrophils (Manual) 78 % (40-80) 08/29/16 07:55 Lymphocytes 12 % (20-50) L 08/29/16 07:55 Monocytes 3 % (2-10) 08/29/16 07:55 Platelet Estimate ADEQUATE (NORMAL) 08/29/16 07:55 Platelet Morphology PLATELET CLUMPS SEEN (NORMAL) 08/29/16 07:55 RBC Morph Micro Appear NORMAL (NORMAL) 08/29/16 07:55 ESR 76 mm/hr (0-30) H 09/04/16 06:00 PT 18.4 SECONDS (9.5-11.5) H 09/03/16 06:45 INR 1.79 (0.5-1.4) H 09/03/16 06:45 PTT (Actin FS) 32.6 SECONDS (26.0-38.0) 09/03/16 06:45 Specimen Source Arterial 09/04/16 12:00 Sample Site RB 09/04/16 12:00 pH 7.50 (7.35-7.45) H 09/04/16 12:00 pCO2 46.0 mmHg (35.0-45.0) H 09/04/16 12:00 pO2 67.0 mmHg (80.0-100.0) L 09/04/16 12:00 HCO3 35.9 mmol/L (20.0-26.0) H 09/04/16 12:00 Base Excess 11.3 mmol/L (-3.0-3.0) H 09/04/16 12:00 O2 Saturation 95.0 % (92.0-100.0) 09/04/16 12:00 Tim Test NA 09/04/16 12:00 Vent Rate NA 09/04/16 12:00 Inspired O2 32 09/04/16 12:00 Tidal Volume NA 09/04/16 12:00 PEEP NA 09/04/16 12:00 Pressure (ins/psv/peep) NA 09/04/16 12:00 Critical Value E.VERA 09/04/16 12:00 Sodium 138 mEq/L (136-145) 09/04/16 06:00 Potassium 3.0 mEq/L (3.5-5.1) L 09/04/16 06:00 Chloride 104 mEq/L (98-107) 09/04/16 06:00 Carbon Dioxide 32.8 mEq/L (21.0-31.0) H 09/04/16 06:00 Anion Gap 4.2 (7.0-16.0) L 09/04/16 06:00 BUN 4 mg/dL (7-25) L 09/04/16 06:00 Creatinine 0.7 mg/dL (0.6-1.2) 09/04/16 06:00 Est GFR ( Amer) > 60.0 ml/min (>90) 09/04/16 06:00 Est GFR (Non-Af Amer) > 60.0 ml/min 09/04/16 06:00 BUN/Creatinine Ratio 5.7 09/04/16 06:00 Glucose 120 mg/dL (70-105) H 09/04/16 06:00 Calcium 9.0 mg/dL (8.6-10.3) 09/04/16 06:00 Total Bilirubin 0.4 mg/dL (0.3-1.0) 08/29/16 07:55 AST 11 U/L (13-39) L 08/29/16 07:55 ALT 8 U/L (7-52) 08/29/16 07:55 Alkaline Phosphatase 77 U/L (34-104) 08/29/16 07:55 C-Reactive Protein 3.00 mg/dL (0.0-0.9) H 09/03/16 06:45 Total Protein 6.2 gm/dL (6.0-8.3) 08/29/16 07:55 Albumin 3.2 gm/dL (3.7-5.3) L 08/29/16 07:55 Globulin 3.0 gm/dL 08/29/16 07:55 Albumin/Globulin Ratio 1.1 (1.0-1.8) 08/29/16 07:55 Urine Source CLEAN C 08/30/16 12:00 Urine Color YELLOW 08/30/16 12:00 Urine Clarity SL. CLOUDY (CLEAR) 08/30/16 12:00 Urine pH 5.5 08/30/16 12:00 Ur Specific [place] (1.005-1.030) 08/30/16 12:00 Urine Protein TRACE mg/dL (NEGATIVE) 08/30/16 12:00 Urine Glucose (UA) NEGATIVE mg/dL (NEGATIVE) 08/30/16 12:00 Urine Ketones NEGATIVE mg/dL (NEGATIVE) 08/30/16 12:00 Urine Blood MODERATE (NEGATIVE) H 08/30/16 12:00 Urine Nitrate NEGATIVE (NEGATIVE) 08/30/16 12:00 Urine Bilirubin NEGATIVE (NEGATIVE) 08/30/16 12:00 Urine Urobilinogen 0.2 E.U./dL (0.2 - 1.0) 08/30/16 12:00 Ur Leukocyte Esterase SMALL (NEGATIVE) H 08/30/16 12:00 Urine RBC 3-6 /hpf (0-5) 08/30/16 12:00 Urine WBC 10-25 /hpf (0-5) H 08/30/16 12:00 Ur Epithelial Cells MODERATE /lpf (FEW) 08/30/16 12:00 Urine Bacteria MANY /hpf (NONE SEEN) 08/30/16 12:00 Fluid Source PLEURAL 09/04/16 15:15 Fluid Color YELLOW 09/04/16 15:15 Fluid Appearance CLEAR 09/04/16 15:15 Fluid pH 8.0 09/04/16 15:15 Fluid WBC 0 /cumm 09/04/16 15:15 Fluid RBC 70 /cumm 09/04/16 15:15 Fluid Glucose 145.0 mg/dL 09/04/16 15:15 Fluid Total Protein 2.1 g/dL 09/04/16 15:15 Fluid LDH 113 U/L 09/04/16 15:15 Fluid Amylase 5 U/L 09/04/16 15:15 Stool Leukocyte NO WBC SEEN 08/31/16 08:10 Gentamicin Peak 2.0 ug/ml (4.0-8.0) L 09/02/16 20:19 Gentamicin Trough 2.7 ug/ml (0.5-1.5) H 09/02/16 19:11 - Physical Exam Vitals and I&O: Vital Signs Temp 98.2 F 09/04/16 16:00 Pulse 84 09/04/16 16:00 Resp 18 09/04/16 16:00 BP 141/67 09/04/16 16:00 Pulse Ox 97 09/04/16 16:00 Intake & Output 09/03/16 09/04/16 09/04/16 18:59 06:59 18:59 Intake Total 5417.561 1000.167 Balance 5291.469 8079.167 Weight (lbs) 65.771 kg Intake: Intake, IV Amount 3156.735 3240.167 Ciprofloxacin 400mg 200 Premix PB 400 mg In 200 ml @ 200 mls/hr IV Q12H [facility] Rx#:[id number] D5-0.9%Ns 1,000 ml @ 100 1263.333 736.667 mls/hr IV .Q10H [facility] Rx#: [id number] Gentamicin 100 mg In 102.5 Sodium Chloride 0.9% 100 ml @ 200 mls/hr IV Q12H [facility] Rx#:[id number] metroNIDAZOLE 500mg/NS 100 200 100mL 500 mg In 100 ml @ 100 mls/hr IV Q8HR [facility] Rx #:[id number] Oral 100 Other: # Voids 3 2 # Bowel Movements 3 Stool Characteristics Liquid Liquid Black Black Active Medications: Current Medications Acetaminophen (Tylenol) 650 mg PO Q6H PRN PRN Reason: Mild Pain/Headache/T above 101 Stop: 10/28/16 03:52 Acetaminophen/Hydrocodone Bitart ([place] 10 Mg/325 Mg) 1 tab PO Q6H PRN PRN Reason: Pain (Severe) Stop: 10/28/16 03:52 Last Admin: 09/04/16 05:46 Dose: 1 tab Acetaminophen/Hydrocodone Bitart ([place] 5mg/325mg) 1 tab PO Q6H PRN PRN Reason: Moderate Pain Stop: 10/28/16 03:52 Last Admin: 09/04/16 13:22 Dose: 1 tab Acetylcysteine (Mucomyst 20%) 5 ml / ( ) [facility] Stop: 11/02/16 18:59 Last Admin: 09/04/16 08:29 Dose: 5 ml Al Hydrox/Mg Hydrox/Simethicone (Maalox) 30 ml PO Q6H PRN PRN Reason: Constipation Stop: 10/28/16 03:52 Albuterol/Ipratropium (Duoneb Neb) 3 ml [facility] [id number] Stop: 11/02/16 14:59 Last Admin: 09/04/16 12:58 Dose: 3 ml Budesonide (Pulmicort) 0.5 mg [facility] Stop: 11/02/16 18:59 Last Admin: 09/04/16 08:30 Dose: 0.5 mg Dexamethasone Sodium Phosphate (Decadron) 10 mg IVP Q6H [facility] Stop: 11/03/16 13:59 Heparin Sodium (Porcine) (Heparin) 5,000 units SUBQ Q12HR [facility] Stop: 10/28/16 20:59 Last Admin: 09/04/16 09:16 Dose: 5,000 units Dextrose/Sodium Chloride (D5-0.9%Ns) 1,000 mls @ 100 mls/hr IV .Q10H [facility] Stop: 10/28/16 03:59 Last Admin: 09/04/16 12:11 Dose: 100 mls/hr Ciprofloxacin (Cipro 400mg Premix Pb) 400 mg in 200 mls @ 200 mls/hr IV Q12H [facility] Stop: 10/28/16 04:59 Last Admin: 09/04/16 05:42 Dose: 200 mls/hr Metronidazole (Flagyl) 500 mg in 100 mls @ 100 mls/hr IV Q8HR [facility] Stop: 10/28/16 04:59 Last Admin: 09/04/16 12:05 Dose: 100 mls/hr Gentamicin Sulfate 100 mg/ (Sodium Chloride) 102.5 mls @ 200 mls/hr IV Q12H [facility] Stop: 11/02/16 19:59 Last Admin: 09/04/16 08:00 Dose: 200 mls/hr Lorazepam (Ativan) 1 mg PO Q6H PRN; Protocol PRN Reason: Anxiety/Agitation Stop: 10/28/16 03:52 Magnesium Hydroxide (Milk Of Magnesia) 30 ml PO HS PRN PRN Reason: Constipation Stop: 10/28/16 03:52 Miscellaneous (Vte Chemical Prophylaxis Screen/ Admission) 1 [facility] PRN PRN PRN Reason: PROTOCOL Stop: 10/28/16 10:29 Miscellaneous (Gentamicin Iv Per Pharmacy) 1 [facility] PRN PRN PRN Reason: PROTOCOL Stop: 10/31/16 17:58 Ondansetron HCl (Zofran) 4 mg IVP Q6H PRN PRN Reason: Nausea / Vomiting Stop: 10/28/16 03:52 Last Admin: 09/03/16 11:38 Dose: 4 mg General: Alert, Oriented x3 Neck: Supple Cardiovascular: Regular rate Lungs: Clear to auscultation Abdomen: Bowel sounds, Soft Assessment/Plan - Assessment Assessment: 1. N/V - IMPROVED. 2. 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 3. L PLEURAL EFFUSION S/P THORA. 4. ANEMIA. 5. CHANGE IN BOWEL HABITS. - Plan Plan: 1. MONITOR LABS. 2. ZOFRAN PRN. 3. ORAL DIET MER. 4. NO NEED FOR ENDOSCOPIC WORKUP INCLUDING EGD AND/OR COLONOSCOPY AT THIS POINT. 5. FURTHER WORKUP AND TREATMENT PER PULM AND ONC.
[2016-09-05] MEDS: Dexamethasone Sodium Phos 4 mg/mL Vial IVP SCH ×4 (03:30→20:25)
--- NOTE | 2016-09-05 05:51 | Consultation ---
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 HISTORY OF PRESENT ILLNESS: This patient is a 66-year-old female with a longstanding history of smoking, who was admitted here at [facility] after being transferred from [facility], where she presented with a syncopal episode. Most of the information at this point is gleaned from the chart, as the patient herself is a poor historian and her is not available for interview at this time. According to the chart, the patient was also complaining of nausea, vomiting and some abdominal pain as well as constipation and frequent liquid motions. Of note, the patient also has recently sprained her left foot. Upon questioning, she denies any rest pain in her feet, but has not been able to ambulate much lately because she has been, according to her, passing out. Currently, she denies any shortness of breath or difficulty breathing. She also denies any chest pain, headache, blurry vision. She does complain of some abdominal pain and discomfort. She underwent a CT scan in the [facility] of the abdomen, which did show diverticulosis and some colitis generalized type, with no diverticulitis, with diffuse wall thickening, colonic edema and colitis. Apparently, the patient also has a history of C. diff colitis previously as well. PAST MEDICAL HISTORY: Significant for: 1. Hypertension. 2. History of CVA. 3. Hyperlipidemia. 4. History of colitis with recurrent colitis now. PAST SURGICAL HISTORY: She denies any past surgical history. ALLERGIES: She has no known allergies. SOCIAL HISTORY: She does have a longstanding history of smoking for approximately 40 years, 1 pack a day, quit about 2 years ago. Denies alcohol or drug use. FAMILY HISTORY: Noncontributory. REVIEW OF SYSTEMS: Review of systems was performed: She does complain of some abdominal pain and discomfort as well as pain in her left ankle. Otherwise, denies fevers, chills, nausea, vomiting, chest pain, shortness of breath at this time or difficulty breathing, headache, blurry vision or any other abnormalities at this time, although she did have an episode of syncope on admission previously. PHYSICAL EXAMINATION: GENERAL: She is alert and responsive, does not appear to be in any acute distress. VITAL SIGNS: Most recent vital signs: Temperature was 97.7, heart rate 84, respiratory rate 20, blood pressure 144/63, satting 97% on 2 liters nasal cannula. HEENT: Head is normocephalic, atraumatic. Eyes are anicteric. NECK: Soft, supple. No JVD noted. CHEST: There are no breath sounds noted on the left side. On the right side, there appeared to be coarse breath sounds. HEART: Regular rate and rhythm. ABDOMEN: Obese, soft, nondistended. There is mild diffuse tenderness to palpation, but no rebound, guarding or peritoneal signs at this time. BACK: No CVAT. SKIN: No rashes or petechiae. MUSCULOSKELETAL: She does seem to have full range of motion except that her left ankle where she has a sprain. NEUROLOGIC: She has no focal deficits noted. PULSE EXAMINATION: She has 2+ bilateral brachial pulses. She does not have any palpable radial pulses. On the lower extremities on the right side, she has 1+ dorsalis pedis, no posterior tibialis and 1+ popliteal with 2+ femoral. On the left side, she has 2+ femoral and 1+ popliteal. I am unable to feel any pulses in her left foot; however, this may be limited examination because of her pain. EXTREMITIES: There is no cyanosis, clubbing noted. Her left foot is slightly edematous at the ankle region with tenderness in the ankle secondary to sprain post-injury. GENITOURINARY: She does not have a Daigle catheter in place. DIAGNOSTIC DATA: Her white count today is 8.6. It was 12 on admission. Hemoglobin is 10.4, hematocrit is 30.1, platelet count is 435 with 70% neutrophilia. She had an INR of 1.8 yesterday with a PT of 18.4 and a PTT of 32.6. Her potassium is 3. Her BUN is 4 with a creatinine of 0.7. GFR is calculated at greater than 60. Her UA on admission was negative for nitrites with small amount of leukocyte esterase. She did have a chest x-ray for imaging today that showed no significant change in pulmonary status including persistent complete opacification of the left hemithorax. She has a chest CT that was also done yesterday with IV contrast that has an impression of large abnormal soft tissue density along the left hilar region with involvement of the mediastinum and a few prominent mediastinal lymph nodes, which may be partially necrotic. There is encasement and partial obliteration of the left hilar vasculature including the pulmonary arteries with marked decrease in caliber and probable invasion into the left pulmonary arteries. There is also obliteration of the left main stem bronchus. These findings are most labor service representative of neoplastic process, probable primary bronchogenic lung cancer. Please correlate clinically. Follow up recommended. IMPRESSION: 1. 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 2. History of cerebrovascular accident. 3. Hypertension. 4. Colitis, currently being followed by Gastrointestinal and treated by Infectious Disease with Flagyl. 5. Hyperlipidemia. RECOMMENDATIONS: At this time, given the advanced state of the presumed cancerous tumor seen on CT scan, I do think that the patient clearly needs a biopsy for pathology. I agree with bronchoscopy with possible biopsy to obtain tissue samples. The opacification seen on the chest x-ray is because of the obliteration of the left main stem bronchus. There is no air or getting into the left lung and therefore, the entire left lung has collapsed and is now filled with pleural effusion fluid in the empty space. I do not think that a chest tube would help this in any way. It would not help expand the lung once again because there is no air getting into the lung from the occlusion of the left main stem bronchus from this cancer. The only way to reexpand this lung is to, if possible, maybe stent to the left main bronchus at the time of tissue biopsy. I do think that ultimately the patient may likely benefit from evaluation from a thoracic surgeon. Possibly, higher level of care may be indicated in this patient with the advanced bronchogenic tumor with complete lung collapse secondary to closure of the left main bronchus. As mentioned, I do not think a chest tube would help reexpand this lung, as the lung collapse is because there is no air turning into the left lung from the occlusion of the left main bronchus from the tumor. The encasement of the pulmonary vasculature is also secondary to local growth of this tumor and is not a good prognosis for this patient. I do not think that there is any vascular surgical intervention that would assist in this patient, but I do think that evaluation by a thoracic surgeon likely at a tertiary care center may be of benefit to the patient. Thank you very much, Dr. Snyder, for allowing me to participate in the care of your patient. Please feel free to call with any questions. JOB# [id number]
[2016-09-05] MEDS: D5-0.9%NS 1,000 ML IV SCH (06:55)
[2016-09-05] MEDS: Ciprofloxacin 400mg Premix PB 400 MG/200 ML BAG IV SCH ×2 (07:01→16:42)
[2016-09-05] MEDS: Albuterol/Ipratropium Neb 3 ML AERS HHN SCH ×4 (07:24→19:03)
[2016-09-05] MEDS: Budesonide 0.5 Mg/2 mL Ud HHN SCH ×2 (07:24→19:04)
[2016-09-05 07:27] LABS: % BASOPHILS 0.1 % (0.0-2.0); % EOSINOPHILS 0.2 % (0.0-5.0); % LYMPHOCYTES 9.7 % (20.0-50.0); % MONOCYTES 1.1 % (2.0-10.0); % NEUTROPHILS 88.9 % (40.0-80.0); HEMATOCRIT 28.1 % (35.0-45.0); HEMOGLOBIN 9.5 gm/dL (11.7-15.5); MEAN CELL VOLUME 86.3 fl (81-100); MEAN CORPUSCULAR HEMOGLOBIN 29.2 pg (27.0-31.0); MEAN CORPUSCULAR HGB CONC 33.9 pg (28.0-36.0); MEAN PLATELET VOLUME 8.1 fl; NEUTROPHILE ABSOLUTE 5.3 Th/cmm (1.8-8.0); PLATELET COUNT 410 Th/cmm (150-400); RED BLOOD COUNT 3.25 Mil/cmm (3.80-5.10); RED CELL DISTRIBUTION WIDTH 14.1 % (11.5-20.0)
[2016-09-05 07:38] LABS: ANION GAP 9.5 (7.0-16.0); BUN - UREA NITROGEN 6 mg/dL (7-25); BUN/CREATININE RATIO 8.6; CALCIUM SERUM 9.2 mg/dL (8.6-10.3); CARBON DIOXIDE 31.2 mEq/L (21.0-31.0); CHLORIDE 102 mEq/L (98-107); CREATININE - SERUM 0.7 mg/dL (0.6-1.2); GLUCOSE 179 mg/dL (70-105); POTASSIUM SERUM 3.7 mEq/L (3.5-5.1); SODIUM SERUM 139 mEq/L (136-145)
[2016-09-05] MEDS: metroNIDAZOLE 500mg/NS 100mL 500 MG/100 ML BAG IV SCH ×3 (07:50→20:25)
--- NOTE | 2016-09-05 08:05 | Consultation ---
REASON FOR CONSULTATION: Chronic hypokalemia. HISTORY OF PRESENT ILLNESS: The patient is a pleasant 66-year-old woman with history of colitis, past CVA with right-sided deficits, hypertension, presenting with frequent diarrhea, initially evaluated by [facility] and transferred to [place]. On examination, the patient is able to give me a limited history. However, states that she has been off her medications, which include citalopram, omeprazole, lisinopril and amlodipine for the past 2 weeks. Ongoing diarrhea persists this admission. REVIEW OF SYSTEMS: Denies fevers, chills, nausea, vomiting. Endorses diarrhea as above, otherwise 14-point review of systems negative except for above. PAST MEDICAL HISTORY: As per above. PAST SURGICAL HISTORY: None. MEDICATIONS AT HOME: As per above, include citalopram, omeprazole, lisinopril, and amlodipine. ALLERGIES: No known drug allergies. FAMILY HISTORY: Noncontributory. SOCIAL HISTORY: The patient does not smoke, use alcohol or illicit drugs at this time. PHYSICAL EXAMINATION: VITAL SIGNS: Temperature 36, blood pressure 148/71, pulse 90, respirations 18. GENERAL APPEARANCE: Thin elderly woman in no apparent distress, alert and oriented x 3. Some dementia with recall on examination. LUNGS: Clear to auscultation bilaterally. CARDIOVASCULAR: Regular rate. Normal rhythm. No murmurs or gallops. EXTREMITIES: Trace edema, 1+ pulses distally. LABORATORY DATA: For review as of 09/04/2016, white count 8.6, hemoglobin 10.4, platelets 435. Chemistry: Sodium 138, K 3.0, chloride 105, CO2 is 32, BUN 4, creatinine 0.7, glucose 120, calcium 9.0. CRP of 3. ASSESSMENT AND RECOMMENDATIONS: 1. Chronic hypokalemia. The patient does have acute colitis, which is resulting in diarrhea. Certainly this could be explained through gastrointestinal losses alone; however, we will send off urine indices and work up with a TTKG and a urine anion gap to exclude GI versus renal wasting of potassium at this time. Avoid further GoLYTELY preparations. Replace potassium as needed. Given history of hypertension and metabolic alkalosis, we will send off workup for aldosterone and rennin. Differential also includes Pendred syndrome and other congenital or acquired tubular deficits; however, at age 66, this would be highly unlikely. We will follow up urine studies. 2. Colitis with diarrhea. Management as per primary, on antibiotics, gentamicin noted. 3. Hypertension. Blood pressure remains controlled at this time. If agents are required, would advise starting with an BONNIE inhibitor as well as a potassium-sparing diuretic such as amiloride due to ongoing potassium wasting. Again, we will follow up with urine studies. 4. Past cerebrovascular accident. The patient likely will require at least an BONNIE inhibitor for secondary prevention at this time as well as blood pressure. Thank you, Dr. Snyder for allowing us to participate in the care of this interesting patient. We will continue to follow along with you while hospitalized. JOB# [id number]
[2016-09-05 08:14] LABS: INR 1.49 (0.5-1.4); PROTHROMBIN TIME (TEST) 15.1 SECONDS (9.5-11.5)
[2016-09-05] MEDS: Hydrocodone/APAP 5mg/325mg Tab PO PRN (08:55)
--- NOTE | 2016-09-05 08:56 | Progress Notes ---
SUBJECTIVE: The patient is sleepy. The patient is unable to communicate. The patient is on IV antibiotics. The patient is on IV fluids. The patient is receiving inpatient treatment. The patient is complaining of abdominal pain. OBJECTIVE: VITAL SIGNS: Temperature is 97.7, pulse 84, blood pressure is 144/63, respiratory rate 20, O2 saturation 97% on 2 liters nasal cannula. CARDIOVASCULAR: S1 and S2. RESPIRATORY: Rales. ABDOMEN: Soft. Diffuse tenderness. Positive bowel sounds. LABORATORY DATA: Hematology: WBC 8.6, hemoglobin 10.4, hematocrit 30.1, platelet count of 435, 19% lymphocytes and ESR is 76. Chemistry: Sodium 138, potassium 2.0, chloride 104, bicarbonate 22, anion gap of 4.2, BUN 4, creatinine 0.7, GFR is more than 60. Glucose is 120, calcium 9.0. Microbiology: MRCP from August 29 is negative. Urine culture from August 30 shows mixed urogenital janessa including yeast. Blood culture from August 31 shows no growth. Shiga toxin test from August 31 negative. Stool culture from August 31 normal Gram-negative intact janessa. Yeasts only. ASSESSMENT: 1. Sepsis. 2. Pancolitis. 3. Pneumonia. 4. Pleural effusion. 5. Nausea and vomiting (improved). 6. Abdominal pain. 7. Hypertension. 8. Syncope, secondary to dehydration. 9. History of hemorrhage, right eye. 10. History of cerebrovascular accident. 11. Status post bowel resection. 12. History of tobacco abuse. 13. Anemia. 14. Thrombocytosis. 15. Hypokalemia. 16. ____. 17. Lung mass. 18. Possible metastatic lung cancer. PLAN: Continue current medications and treatment. The patient is ordered for brain MRI/CT by Hematology. Recommendation for bronchoscopy and biopsy. Further consults. JOB# [id number]
--- NOTE | 2016-09-05 09:10 | Diagnostic Imaging Report ---
CHEST X-RAY: AP view INDICATION: Pneumothorax COMPARISON: Chest x-ray to [address] chest on 09/04/2016 FINDINGS: There is increased opacification of left hemithorax with increased lucency seen apically. Leftward mediastinal shift is again noted. IMPRESSION: Increased opacification of left hemithorax likely due to combination of pleural effusion and lung collapse and/or pneumonia. Increased lucencies of the left upper hemithorax noted likely representing underlying pneumothorax when compared to recent CT examination on 09/04/2016. Please refer to recent CT examination for estimated 40% pneumothorax was seen, much better identified on CT examination.
--- NOTE | 2016-09-05 09:45 | Progress Notes ---
SUBJECTIVE: The patient is awake and alert. The patient complains of abdominal pain. The patient is on IV antibiotics. The patient is on IV fluids. The patient is unable to do colostomy due to not properly prepped. PHYSICAL EXAMINATION: VITAL SIGNS: Temperature 97.0, pulse 83, respiratory rate 18, O2 sat 98% on 2 liters nasal cannula. CARDIOVASCULAR: S1 and S2. RESPIRATORY: Diminished breath sounds on left side of the lung. GASTROINTESTINAL: Soft. Diffuse tenderness. Positive bowel sounds. LABORATORY DATA: Hematology: WBC 8.3, hemoglobin 10.6, hematocrit 30.9, platelet of 386,000. ESR 63. PT 18.4. INR 1.79. PTT 23 and 32.6. Chemistry: Sodium 136, potassium 2.7, chloride 104, bicarb 32, anion gap 2.7, BUN 3, creatinine 0.6. GFR is more than 60. Glucose 135, calcium 8.8. Microbiology: MRSA screening from 08/29/2016 is negative. Urine culture from 08/30/2016 shows mixed urogenital janessa including yeast. Blood culture from 08/31/2016 shows no growth. Stool culture from 08/31/2016 is pending. Shiga toxins from 08/31/2016 is negative. RADIOLOGICAL TEST: Chest x-ray from 09/03/[address] of chest on 09/03/2016 seen. ASSESSMENT: 1. Anemia. 2. Hyperkalemia. 3. Hyperglycemia. 4. Left pleural effusion. 5. Sepsis. 6. Pneumonia. 7. Pancolitis. 8. Respiratory failure (acute). 9. Left lung mass. PLAN: Continue current medication. Obtain labs in a.m. Awaiting pulmonary consultation. We will obtain hematology consultation regarding left lung mass. We will obtain nephrology consultation regarding uncontrolled hyperkalemia. Further consults. JOB# [id number] RENUKA
--- NOTE | 2016-09-05 10:54 | General Progress Note ---
Subjective - Review of Systems Service Date: 09/05/16 Subjective: Denies c/o, states that she is awaiting transfer to higher level of care for lung biopsy Objective - Results Result Diagrams: 09/05/16 05:48 09/05/16 05:48 Recent Labs: Laboratory Last Values WBC 6.0 Th/cmm (4.8-10.8) D 09/05/16 05:48 RBC 3.25 Mil/cmm (3.80-5.10) L 09/05/16 05:48 Hgb 9.5 gm/dL (11.7-15.5) L 09/05/16 05:48 Hct 28.1 % (35.0-45.0) L 09/05/16 05:48 MCV 86.3 fl (81-100) 09/05/16 05:48 MCH 29.2 pg (27.0-31.0) 09/05/16 05:48 MCHC Differential 33.9 pg (28.0-36.0) 09/05/16 05:48 RDW 14.1 % (11.5-20.0) 09/05/16 05:48 Plt Count 410 Th/cmm (150-400) H 09/05/16 05:48 MPV 8.1 fl 09/05/16 05:48 Neutrophils % 88.9 % (40.0-80.0) H 09/05/16 05:48 Band Neutrophils % 7 % (0-10) 08/29/16 07:55 Lymphocytes % 9.7 % (20.0-50.0) L 09/05/16 05:48 Monocytes % 1.1 % (2.0-10.0) L 09/05/16 05:48 Eosinophils % 0.2 % (0.0-5.0) 09/05/16 05:48 Basophils % 0.1 % (0.0-2.0) 09/05/16 05:48 Neutrophils (Manual) 78 % (40-80) 08/29/16 07:55 Lymphocytes 12 % (20-50) L 08/29/16 07:55 Monocytes 3 % (2-10) 08/29/16 07:55 Platelet Estimate ADEQUATE (NORMAL) 08/29/16 07:55 Platelet Morphology PLATELET CLUMPS SEEN (NORMAL) 08/29/16 07:55 RBC Morph Micro Appear NORMAL (NORMAL) 08/29/16 07:55 ESR 63 mm/hr (0-30) H 09/05/16 05:48 PT 15.1 SECONDS (9.5-11.5) H 09/05/16 05:48 INR 1.49 (0.5-1.4) H 09/05/16 05:48 PTT (Actin FS) 26.7 SECONDS (26.0-38.0) 09/05/16 05:48 Specimen Source Arterial 09/04/16 12:00 Sample Site RB 09/04/16 12:00 pH 7.50 (7.35-7.45) H 09/04/16 12:00 pCO2 46.0 mmHg (35.0-45.0) H 09/04/16 12:00 pO2 67.0 mmHg (80.0-100.0) L 09/04/16 12:00 HCO3 35.9 mmol/L (20.0-26.0) H 09/04/16 12:00 Base Excess 11.3 mmol/L (-3.0-3.0) H 09/04/16 12:00 O2 Saturation 95.0 % (92.0-100.0) 09/04/16 12:00 Tim Test NA 09/04/16 12:00 Vent Rate NA 09/04/16 12:00 Inspired O2 32 09/04/16 12:00 Tidal Volume NA 09/04/16 12:00 PEEP NA 09/04/16 12:00 Pressure (ins/psv/peep) NA 09/04/16 12:00 Critical Value E.VERA 09/04/16 12:00 Sodium 139 mEq/L (136-145) 09/05/16 05:48 Potassium 3.7 mEq/L (3.5-5.1) 09/05/16 05:48 Chloride 102 mEq/L (98-107) 09/05/16 05:48 Carbon Dioxide 31.2 mEq/L (21.0-31.0) H 09/05/16 05:48 Anion Gap 9.5 (7.0-16.0) 09/05/16 05:48 BUN 6 mg/dL (7-25) L 09/05/16 05:48 Creatinine 0.7 mg/dL (0.6-1.2) 09/05/16 05:48 Est GFR ( Amer) > 60.0 ml/min (>90) 09/05/16 05:48 Est GFR (Non-Af Amer) > 60.0 ml/min 09/05/16 05:48 BUN/Creatinine Ratio 8.6 09/05/16 05:48 Glucose 179 mg/dL (70-105) H 09/05/16 05:48 Calcium 9.2 mg/dL (8.6-10.3) 09/05/16 05:48 Total Bilirubin 0.4 mg/dL (0.3-1.0) 08/29/16 07:55 AST 11 U/L (13-39) L 08/29/16 07:55 ALT 8 U/L (7-52) 08/29/16 07:55 Alkaline Phosphatase 77 U/L (34-104) 08/29/16 07:55 C-Reactive Protein 2.40 mg/dL (0.0-0.9) H 09/04/16 06:00 Total Protein 6.2 gm/dL (6.0-8.3) 08/29/16 07:55 Albumin 3.2 gm/dL (3.7-5.3) L 08/29/16 07:55 Globulin 3.0 gm/dL 08/29/16 07:55 Albumin/Globulin Ratio 1.1 (1.0-1.8) 08/29/16 07:55 Urine Source CLEAN C 08/30/16 12:00 Urine Color YELLOW 08/30/16 12:00 Urine Clarity SL. CLOUDY (CLEAR) 08/30/16 12:00 Urine pH 5.5 08/30/16 12:00 Ur Specific Valentine (1.005-1.030) 08/30/16 12:00 Urine Protein TRACE mg/dL (NEGATIVE) 08/30/16 12:00 Urine Glucose (UA) NEGATIVE mg/dL (NEGATIVE) 08/30/16 12:00 Urine Ketones NEGATIVE mg/dL (NEGATIVE) 08/30/16 12:00 Urine Blood MODERATE (NEGATIVE) H 08/30/16 12:00 Urine Nitrate NEGATIVE (NEGATIVE) 08/30/16 12:00 Urine Bilirubin NEGATIVE (NEGATIVE) 08/30/16 12:00 Urine Urobilinogen 0.2 E.U./dL (0.2 - 1.0) 08/30/16 12:00 Ur Leukocyte Esterase SMALL (NEGATIVE) H 08/30/16 12:00 Urine RBC 3-6 /hpf (0-5) 08/30/16 12:00 Urine WBC 10-25 /hpf (0-5) H 08/30/16 12:00 Ur Epithelial Cells MODERATE /lpf (FEW) 08/30/16 12:00 Urine Bacteria MANY /hpf (NONE SEEN) 08/30/16 12:00 Fluid Source PLEURAL 09/04/16 15:15 Fluid Color YELLOW 09/04/16 15:15 Fluid Appearance CLEAR 09/04/16 15:15 Fluid pH 8.0 09/04/16 15:15 Fluid WBC 0 /cumm 09/04/16 15:15 Fluid RBC 70 /cumm 09/04/16 15:15 Fluid Glucose 145.0 mg/dL 09/04/16 15:15 Fluid Total Protein 2.1 g/dL 09/04/16 15:15 Fluid LDH 113 U/L 09/04/16 15:15 Fluid Amylase 5 U/L 09/04/16 15:15 Stool Leukocyte NO WBC SEEN 08/31/16 08:10 Gentamicin Peak 1.5 ug/ml (4.0-8.0) L 09/04/16 21:00 Gentamicin Trough 2.0 ug/ml (0.2-2.0) H 09/04/16 19:30 - Physical Exam Vitals and I&O: Vital Signs Temp 97.9 F 09/05/16 04:00 Pulse 90 09/05/16 07:25 Resp 18 09/05/16 07:25 BP 150/64 09/05/16 04:00 Pulse Ox 98 09/05/16 07:25 Intake & Output 09/04/16 09/05/16 09/05/16 18:59 06:59 18:59 Intake Total 202.5 2602.5 Output Total 2 Balance 202.5 2600.5 Intake: Intake, IV Amount 202.5 1402.5 Ciprofloxacin 400mg 200 Premix PB 400 mg In 200 ml @ 200 mls/hr IV Q12H [facility] Rx#:[id number] D5-0.9%Ns 1,000 ml @ 100 1000 mls/hr IV .Q10H [facility] Rx#: [id number] Gentamicin 100 mg In 102.5 102.5 Sodium Chloride 0.9% 100 ml @ 200 mls/hr IV Q12H [facility] Rx#:[id number] metroNIDAZOLE 500mg/NS 100 100 100mL 500 mg In 100 ml @ 100 mls/hr IV Q8HR [facility] Rx #:[id number] Oral 1200 Output: Urine 2 Other: # Voids 2 Active Medications: Current Medications Acetaminophen (Tylenol) 650 mg PO Q6H PRN PRN Reason: Mild Pain/Headache/T above 101 Stop: 10/28/16 03:52 Acetaminophen/Hydrocodone Bitart (Ace 10 Mg/325 Mg) 1 tab PO Q6H PRN PRN Reason: Pain (Severe) Stop: 10/28/16 03:52 Last Admin: 09/04/16 05:46 Dose: 1 tab Acetaminophen/Hydrocodone Bitart (Ace 5mg/325mg) 1 tab PO Q6H PRN PRN Reason: Moderate Pain Stop: 10/28/16 03:52 Last Admin: 09/05/16 08:55 Dose: 1 tab Acetylcysteine (Mucomyst 20%) 5 ml / ( ) HHN BIDRT [facility] Stop: 11/02/16 18:59 Last Admin: 09/05/16 07:24 Dose: 5 ml Al Hydrox/Mg Hydrox/Simethicone (Maalox) 30 ml PO Q6H PRN PRN Reason: Constipation Stop: 10/28/16 03:52 Albuterol/Ipratropium (Duoneb Neb) 3 ml HHN [id number] [facility] Stop: 11/02/16 14:59 Last Admin: 09/05/16 07:24 Dose: 3 ml Budesonide (Pulmicort) 0.5 mg HHN BIDRT [facility] Stop: 11/02/16 18:59 Last Admin: 09/05/16 07:24 Dose: 0.5 mg Dexamethasone Sodium Phosphate (Decadron) 10 mg IVP Q6H [facility] Stop: 11/03/16 13:59 Last Admin: 09/05/16 08:55 Dose: 10 mg Heparin Sodium (Porcine) (Heparin) 5,000 units SUBQ Q12HR [facility] Stop: 10/28/16 20:59 Last Admin: 09/05/16 08:39 Dose: 5,000 units Dextrose/Sodium Chloride (D5-0.9%Ns) 1,000 mls @ 100 mls/hr IV .Q10H [facility] Stop: 10/28/16 03:59 Last Admin: 09/05/16 06:55 Dose: 100 mls/hr Ciprofloxacin (Cipro 400mg Premix Pb) 400 mg in 200 mls @ 200 mls/hr IV Q12H [facility] Stop: 10/28/16 04:59 Last Admin: 09/05/16 07:01 Dose: 200 mls/hr Metronidazole (Flagyl) 500 mg in 100 mls @ 100 mls/hr IV Q8HR [facility] Stop: 10/28/16 04:59 Last Admin: 09/05/16 07:50 Dose: 100 mls/hr Gentamicin Sulfate 100 mg/ (Sodium Chloride) 102.5 mls @ 200 mls/hr IV Q12H [facility] Stop: 11/02/16 19:59 Last Admin: 09/05/16 09:31 Dose: 200 mls/hr Lorazepam (Ativan) 1 mg PO Q6H PRN; Protocol PRN Reason: Anxiety/Agitation Stop: 10/28/16 03:52 Magnesium Hydroxide (Milk Of Magnesia) 30 ml PO HS PRN PRN Reason: Constipation Stop: 10/28/16 03:52 Miscellaneous (Vte Chemical Prophylaxis Screen/ Admission) 1 ea PRN PRN PRN Reason: PROTOCOL Stop: 10/28/16 10:29 Miscellaneous (Gentamicin Iv Per Pharmacy) 1 ea PRN PRN PRN Reason: PROTOCOL Stop: 10/31/16 17:58 Ondansetron HCl (Zofran) 4 mg IVP Q6H PRN PRN Reason: Nausea / Vomiting Stop: 10/28/16 03:52 Last Admin: 09/03/16 11:38 Dose: 4 mg General: Alert, Oriented x3 HEENT: Atraumatic Neck: Supple Cardiovascular: Regular rate Lungs: Clear to auscultation Abdomen: Bowel sounds Extremities: no Clubbing, no Cyanosis, no Edema, no Pulses, no Tender, no Other Assessment/Plan - Assessment Assessment: Chronic hypokalemia Colitis Lung mass - Plan Plan: K corrected w/ IVF administration replete electrolytes as needed an underlying condition such as Gitelman's or Barter's that may result metabolic alkalosis w/ hypokalemia may be present, but the treatment is the same - continue BONNIE-I, consider amiloride if hypokalemia is persistent renal will sign off at this time thank you dr. wilhelm for involving us in the care of this patient. please call at anytime w/ questions.
--- NOTE | 2016-09-05 11:14 | Diagnostic Imaging Report ---
CT Chest without IV contrast HISTORY: Status post left thoracentesis, rule out pneumothorax COMPARISON: Chest x-ray earlier the same day. Technique: Axial images were obtained from the base of the neck to the upper abdomen without IV contrast. Reconstructions were made. Total DLP to 50, CTD I 7.8 Findings: There is a moderate-sized to large left anterior pneumothorax estimated at 40%. There is collapse of the left lung with small left effusion noted. Leftward mediastinal shift is again noted. Atelectatic changes of the right lung are noted. Moderate atherosclerotic vascular disease is noted with trace pericardial fluid. Heart size is normal. The upper abdomen demonstrates atherosclerotic vascular disease and partially visualized large left renal stone. Degenerative changes of the spine are noted with possible mild old compression deformity of T11. IMPRESSION: Moderate sized left anterior pneumothorax along the upper aspect, estimated at 40%. There is collapse of the left lung with small left effusion. Unchanged leftward mediastinal shift. Moderate atherosclerotic vascular disease. Partially visualized large left renal calculus.
--- NOTE | 2016-09-05 12:44 | General Progress Note ---
Subjective - Review of Systems Service Date: 09/05/16 Subjective: EVENTS NOTED. NO N/V OR ABD PAIN. Objective - Results Result Diagrams: 09/05/16 05:48 09/05/16 05:48 Recent Labs: Laboratory Last Values WBC 6.0 Th/cmm (4.8-10.8) D 09/05/16 05:48 RBC 3.25 Mil/cmm (3.80-5.10) L 09/05/16 05:48 Hgb 9.5 gm/dL (11.7-15.5) L 09/05/16 05:48 Hct 28.1 % (35.0-45.0) L 09/05/16 05:48 MCV 86.3 fl (81-100) 09/05/16 05:48 MCH 29.2 pg (27.0-31.0) 09/05/16 05:48 MCHC Differential 33.9 pg (28.0-36.0) 09/05/16 05:48 RDW 14.1 % (11.5-20.0) 09/05/16 05:48 Plt Count 410 Th/cmm (150-400) H 09/05/16 05:48 MPV 8.1 fl 09/05/16 05:48 Neutrophils % 88.9 % (40.0-80.0) H 09/05/16 05:48 Band Neutrophils % 7 % (0-10) 08/29/16 07:55 Lymphocytes % 9.7 % (20.0-50.0) L 09/05/16 05:48 Monocytes % 1.1 % (2.0-10.0) L 09/05/16 05:48 Eosinophils % 0.2 % (0.0-5.0) 09/05/16 05:48 Basophils % 0.1 % (0.0-2.0) 09/05/16 05:48 Neutrophils (Manual) 78 % (40-80) 08/29/16 07:55 Lymphocytes 12 % (20-50) L 08/29/16 07:55 Monocytes 3 % (2-10) 08/29/16 07:55 Platelet Estimate ADEQUATE (NORMAL) 08/29/16 07:55 Platelet Morphology PLATELET CLUMPS SEEN (NORMAL) 08/29/16 07:55 RBC Morph Micro Appear NORMAL (NORMAL) 08/29/16 07:55 ESR 63 mm/hr (0-30) H 09/05/16 05:48 PT 15.1 SECONDS (9.5-11.5) H 09/05/16 05:48 INR 1.49 (0.5-1.4) H 09/05/16 05:48 PTT (Actin FS) 26.7 SECONDS (26.0-38.0) 09/05/16 05:48 Specimen Source Arterial 09/04/16 12:00 Sample Site RB 09/04/16 12:00 pH 7.50 (7.35-7.45) H 09/04/16 12:00 pCO2 46.0 mmHg (35.0-45.0) H 09/04/16 12:00 pO2 67.0 mmHg (80.0-100.0) L 09/04/16 12:00 HCO3 35.9 mmol/L (20.0-26.0) H 09/04/16 12:00 Base Excess 11.3 mmol/L (-3.0-3.0) H 09/04/16 12:00 O2 Saturation 95.0 % (92.0-100.0) 09/04/16 12:00 Tim Test NA 09/04/16 12:00 Vent Rate NA 09/04/16 12:00 Inspired O2 32 09/04/16 12:00 Tidal Volume NA 09/04/16 12:00 PEEP NA 09/04/16 12:00 Pressure (ins/psv/peep) NA 09/04/16 12:00 Critical Value E.VERA 09/04/16 12:00 Sodium 139 mEq/L (136-145) 09/05/16 05:48 Potassium 3.7 mEq/L (3.5-5.1) 09/05/16 05:48 Chloride 102 mEq/L (98-107) 09/05/16 05:48 Carbon Dioxide 31.2 mEq/L (21.0-31.0) H 09/05/16 05:48 Anion Gap 9.5 (7.0-16.0) 09/05/16 05:48 BUN 6 mg/dL (7-25) L 09/05/16 05:48 Creatinine 0.7 mg/dL (0.6-1.2) 09/05/16 05:48 Est GFR ( Amer) > 60.0 ml/min (>90) 09/05/16 05:48 Est GFR (Non-Af Amer) > 60.0 ml/min 09/05/16 05:48 BUN/Creatinine Ratio 8.6 09/05/16 05:48 Glucose 179 mg/dL (70-105) H 09/05/16 05:48 Calcium 9.2 mg/dL (8.6-10.3) 09/05/16 05:48 Total Bilirubin 0.4 mg/dL (0.3-1.0) 08/29/16 07:55 AST 11 U/L (13-39) L 08/29/16 07:55 ALT 8 U/L (7-52) 08/29/16 07:55 Alkaline Phosphatase 77 U/L (34-104) 08/29/16 07:55 C-Reactive Protein 2.40 mg/dL (0.0-0.9) H 09/04/16 06:00 Total Protein 6.2 gm/dL (6.0-8.3) 08/29/16 07:55 Albumin 3.2 gm/dL (3.7-5.3) L 08/29/16 07:55 Globulin 3.0 gm/dL 08/29/16 07:55 Albumin/Globulin Ratio 1.1 (1.0-1.8) 08/29/16 07:55 Urine Source CLEAN C 08/30/16 12:00 Urine Color YELLOW 08/30/16 12:00 Urine Clarity SL. CLOUDY (CLEAR) 08/30/16 12:00 Urine pH 5.5 08/30/16 12:00 Ur Specific [place]ora (1.005-1.030) 08/30/16 12:00 Urine Protein TRACE mg/dL (NEGATIVE) 08/30/16 12:00 Urine Glucose (UA) NEGATIVE mg/dL (NEGATIVE) 08/30/16 12:00 Urine Ketones NEGATIVE mg/dL (NEGATIVE) 08/30/16 12:00 Urine Blood MODERATE (NEGATIVE) H 08/30/16 12:00 Urine Nitrate NEGATIVE (NEGATIVE) 08/30/16 12:00 Urine Bilirubin NEGATIVE (NEGATIVE) 08/30/16 12:00 Urine Urobilinogen 0.2 E.U./dL (0.2 - 1.0) 08/30/16 12:00 Ur Leukocyte Esterase SMALL (NEGATIVE) H 08/30/16 12:00 Urine RBC 3-6 /hpf (0-5) 08/30/16 12:00 Urine WBC 10-25 /hpf (0-5) H 08/30/16 12:00 Ur Epithelial Cells MODERATE /lpf (FEW) 08/30/16 12:00 Urine Bacteria MANY /hpf (NONE SEEN) 08/30/16 12:00 Fluid Source PLEURAL 09/04/16 15:15 Fluid Color YELLOW 09/04/16 15:15 Fluid Appearance CLEAR 09/04/16 15:15 Fluid pH 8.0 09/04/16 15:15 Fluid WBC 0 /cumm 09/04/16 15:15 Fluid RBC 70 /cumm 09/04/16 15:15 Fluid Glucose 145.0 mg/dL 09/04/16 15:15 Fluid Total Protein 2.1 g/dL 09/04/16 15:15 Fluid LDH 113 U/L 09/04/16 15:15 Fluid Amylase 5 U/L 09/04/16 15:15 Stool Leukocyte NO WBC SEEN 08/31/16 08:10 Gentamicin Peak 1.5 ug/ml (4.0-8.0) L 09/04/16 21:00 Gentamicin Trough 2.0 ug/ml (0.2-2.0) H 09/04/16 19:30 - Physical Exam Vitals and I&O: Vital Signs Temp 98.6 F 09/05/16 12:19 Pulse 111 09/05/16 12:19 Resp 20 09/05/16 12:19 BP 146/71 09/05/16 12:19 Pulse Ox 94 09/05/16 12:19 Intake & Output 09/04/16 09/05/16 09/05/16 18:59 06:59 18:59 Intake Total 202.5 2602.5 Output Total 2 Balance 202.5 2600.5 Intake: Intake, IV Amount 202.5 1402.5 Ciprofloxacin 400mg 200 Premix PB 400 mg In 200 ml @ 200 mls/hr IV Q12H [facility] Rx#:[id number] D5-0.9%Ns 1,000 ml @ 100 1000 mls/hr IV .Q10H [facility] Rx#: [id number] Gentamicin 100 mg In 102.5 102.5 Sodium Chloride 0.9% 100 ml @ 200 mls/hr IV Q12H [facility] Rx#:[id number] metroNIDAZOLE 500mg/NS 100 100 100mL 500 mg In 100 ml @ 100 mls/hr IV Q8HR [facility] Rx #:[id number] Oral 1200 Output: Urine 2 Other: # Voids 2 Active Medications: Current Medications Acetaminophen (Tylenol) 650 mg PO Q6H PRN PRN Reason: Mild Pain/Headache/T above 101 Stop: 10/28/16 03:52 Acetaminophen/Hydrocodone Bitart ([place] 10 Mg/325 Mg) 1 tab PO Q6H PRN PRN Reason: Pain (Severe) Stop: 10/28/16 03:52 Last Admin: 09/04/16 05:46 Dose: 1 tab Acetaminophen/Hydrocodone Bitart ([place] 5mg/325mg) 1 tab PO Q6H PRN PRN Reason: Moderate Pain Stop: 10/28/16 03:52 Last Admin: 09/05/16 08:55 Dose: 1 tab Acetylcysteine (Mucomyst 20%) 5 ml / ( ) HHN BIDRT [facility] Stop: 11/02/16 18:59 Last Admin: 09/05/16 07:24 Dose: 5 ml Al Hydrox/Mg Hydrox/Simethicone (Maalox) 30 ml PO Q6H PRN PRN Reason: Constipation Stop: 10/28/16 03:52 Albuterol/Ipratropium (Duoneb Neb) [id number] [facility] Stop: 11/02/16 14:59 Last Admin: 09/05/16 11:05 Dose: Not Given Budesonide (Pulmicort) 0.[address] [facility] Stop: 11/02/16 18:59 Last Admin: 09/05/16 07:24 Dose: 0.5 mg Dexamethasone Sodium Phosphate (Decadron) [address] [facility] Stop: 11/03/16 13:59 Last Admin: 09/05/16 08:55 Dose: 10 mg Heparin Sodium (Porcine) (Heparin) 5,[address] [facility] Stop: 10/28/16 20:59 Last Admin: 09/05/16 08:39 Dose: 5,000 units Dextrose/Sodium Chloride (D5-0.9%Ns) 1,000 mls @ 100 mls/hr IV .Q10H [facility] Stop: 10/28/16 03:59 Last Admin: 09/05/16 06:55 Dose: 100 mls/hr Ciprofloxacin (Cipro 400mg Premix Pb) 400 mg in 200 mls @ 200 mls/hr IV Q12H [facility] Stop: 10/28/16 04:59 Last Admin: 09/05/16 07:01 Dose: 200 mls/hr Metronidazole (Flagyl) 500 mg in 100 mls @ 100 mls/hr IV Q8HR [facility] Stop: 10/28/16 04:59 Last Admin: 09/05/16 07:50 Dose: 100 mls/hr Gentamicin Sulfate 120 mg/ (Sodium Chloride) 103 mls @ 100 mls/hr IV Q24H [facility] Stop: 11/04/16 13:59 Lorazepam (Ativan) 1 mg PO Q6H PRN; Protocol PRN Reason: Anxiety/Agitation Stop: 10/28/16 03:52 Magnesium Hydroxide (Milk Of Magnesia) 30 ml PO HS PRN PRN Reason: Constipation Stop: 10/28/16 03:52 Miscellaneous (Vte Chemical Prophylaxis Screen/ Admission) 1 [facility] PRN PRN PRN Reason: PROTOCOL Stop: 10/28/16 10:29 Miscellaneous (Gentamicin Iv Per Pharmacy) 1 [facility] PRN PRN PRN Reason: PROTOCOL Stop: 10/31/16 17:58 Ondansetron HCl (Zofran) 4 mg IVP Q6H PRN PRN Reason: Nausea / Vomiting Stop: 10/28/16 03:52 Last Admin: 09/03/16 11:38 Dose: 4 mg General: Alert HEENT: Atraumatic Neck: Supple Cardiovascular: Regular rate Lungs: Clear to auscultation Abdomen: Bowel sounds, Soft Assessment/Plan - Assessment Assessment: 1. N/V - IMPROVED. 2. 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 POSSIBLE BRAIN METS. 3. L PLEURAL EFFUSION S/P THORA. 4. ANEMIA. 5. CHANGE IN BOWEL HABITS. - Plan Plan: 1. MONITOR LABS. 2. ZOFRAN PRN. 3. ORAL DIET MER. 4. NO NEED FOR ENDOSCOPIC WORKUP INCLUDING EGD AND/OR COLONOSCOPY AT THIS POINT. 5. FURTHER WORKUP AND TREATMENT PER PULM AND ONC. PENDING TRANSFER TO HOSPITAL WITH THERAPEUTIC ONCOLOGIC SERVICES. NO FURTHER GI WORKUP NEEDED HERE. WILL SIGN OFF AND SEE PATIENT NEEDED. PLEASE CALL US IF QUESTIONS.
[2016-09-05] MEDS: Hydrocodone/APAP 10 mg/325 mg Tab PO PRN (14:09)
--- NOTE | 2016-09-05 21:49 | Progress Notes ---
PULMONARY PROGRESS NOTE PROBLEM LIST: 1. Left-sided haziness. 2. COPD. 3. Multiple GI symptoms. SYMPTOMS: Nil. Still lethargy, not eating well, etc. No specific new other symptoms of chest pain, coughing or difficulty in breathing. PHYSICAL EXAMINATION: VITAL SIGNS: Temperature is 98.3, blood pressure 150/79, oxygen saturation is 97% on 2 liters. NECK: Neck veins not visualized. CHEST: Shows diminished air entry at the bases. HEART: Regular. ABDOMEN: Soft, nontender. LABORATORY DATA: CT reviewed: It shows [id number] sized effusion with compressive lung effect. The patient's chest x-ray this morning did not show anything. The pO2 is 63, pCO2 of 46. Electrolytes are okay with potassium of 3.0. ASSESSMENT: The patient is clinically stable. Effusion, [id number], with compressive atelectasis. PLANS AND SUGGESTIONS: 1. We will consider doing a therapeutic and diagnostic thoracentesis on the left side. 2. Pending that, we will see what ____ if there is endobronchial lesion or not and go accordingly. Care and plan discussed with the patient's at the bedside. JOB# [id number]
--- NOTE | 2016-09-06 00:33 | Progress Notes ---
PROBLEM LIST: 1. Xgysb-xa-adkvshy respiratory failure, improving. 2. Bilateral infiltrate, eurdu-sw-hsawwvz with MRSA. 3. Underlying history of hemiplegia and underlying history of psychosis with history of chronic encephalopathy. The patient was sedated because quite agitated this morning with Ativan, awake, but not answering appropriate questions. PHYSICAL EXAMINATION: GENERAL: Currently, ____. VITAL SIGNS: Temperature is 98.6, blood pressure 146/71, saturation is 94% on 28% of oxygen. NECK: Veins could not be visualized. Good ____ carotid upstroke. CHEST: Shows diminished air entry with occasional rhonchi. HEART: Regular. EXTREMITIES: Shows no peripheral edema. ASSESSMENT: 1. The patient clinically appears to be stable, not much changed, status post thoracentesis. 2. Effusion, etiology is not clear, history of underlying altered state of mind and chronic abdominal pain. PLANS AND SUGGESTIONS: We will go and continue current treatment. If the pneumothorax persists, we will consider a chest tube; otherwise, observe, wait for all the diagnostic studies from the thoracentesis and go from there. JOB# [id number]
[2016-09-06] MEDS ORDERED: Dexamethasone Sodium Phos 4 mg/mL Vial ONE (01:44)
[2016-09-06] MEDS: Dexamethasone Sodium Phos 4 mg/mL Vial IVP SCH ×4 (01:50→20:36)
[2016-09-06] MEDS: D5-0.9%NS 1,000 ML IV SCH (01:51)
[2016-09-06] MEDS: metroNIDAZOLE 500mg/NS 100mL 500 MG/100 ML BAG IV SCH ×3 (05:02→20:35)
[2016-09-06] MEDS: Ciprofloxacin 400mg Premix PB 400 MG/200 ML BAG IV SCH ×2 (06:17→18:00)
[2016-09-06] MEDS: Albuterol/Ipratropium Neb 3 ML AERS HHN SCH ×4 (08:56→19:11)
[2016-09-06] MEDS: Budesonide 0.5 Mg/2 mL Ud HHN SCH ×2 (08:57→19:11)
--- NOTE | 2016-09-06 10:13 | Diagnostic Imaging Report ---
Portable chest x-ray HISTORY: Shortness of breath Compared with prior exam of September 05, 2016, there remains opacification of the majority left hemithorax with volume loss and shift of mediastinum to left. Findings are consistent with CT documented changes of predominantly atelectasis/collapse of the left lung. IMPRESSION: No change in pulmonary status as noted above.
[2016-09-06 10:55] LABS: HEMOGLOBIN 11.3 gm/dL (11.7-15.5); MEAN CELL VOLUME 86.1 fl (81-100); MEAN CORPUSCULAR HEMOGLOBIN 29.3 pg (27.0-31.0); MEAN PLATELET VOLUME 7.7 fl; RED BLOOD COUNT 3.87 Mil/cmm (3.80-5.10); RED CELL DISTRIBUTION WIDTH 14.8 % (11.5-20.0)
[2016-09-06 11:04] LABS: WHITE BLOOD COUNT 16.7 Th/cmm (4.8-10.8)
[2016-09-06 11:05] LABS: HEMATOCRIT 33.3 % (35.0-45.0); PLATELET COUNT 522 Th/cmm (150-400)
--- NOTE | 2016-09-06 11:07 | Pathology Report ---
[id number] Collection date: 09/04/2016 Surgeon: Dr. Michael Bose Specimen Description: Thoracentesis fluid for cytology. Gross Description: Received in a glass container is approximately 200 ml of yellowish somewhat cloudy fluid. A packaging sales representative portion is submitted for cytology processing. Microscopic Description: Examination of two cytospins and one cell block shows very scanty specimen cellularity consisting of mostly blood and acellular fibrinous material. Small numbers of inflammatory cells are appreciated consisting of a few neutrophils and lymphocytes. Diagnosis: Insufficient cellularity for cytologic evaluation (thoracentesis fluid). Comment: Cytologic evaluation is limited by the very small number of cells contained within this specimen. Clinical correlation is recommended to determine if a repeat specimen is warranted. [facility]# [id number] [place]
[2016-09-06 11:22] LABS: BAND NEUTROPHILE 1 % (0-10); EOSINOPHIL 0 % (0-5); NEUTROPHILS 93 % (40-80); PLATELET ESTIMATE INCREASED PLATELETS (NORMAL); PLATELET MORPHOLOGY NORMAL (NORMAL); TOTAL CELLS COUNTED 100
[2016-09-07] MEDS: D5-0.9%NS 1,000 ML IV SCH ×2 (00:26→21:06)
[2016-09-07] MEDS: Dexamethasone Sodium Phos 4 mg/mL Vial IVP SCH ×4 (01:31→21:14)
[2016-09-07] MEDS: Hydrocodone/APAP 5mg/325mg Tab PO PRN ×2 (03:53→23:06)
[2016-09-07] MEDS: metroNIDAZOLE 500mg/NS 100mL 500 MG/100 ML BAG IV SCH ×3 (04:47→20:54)
--- NOTE | 2016-09-07 05:25 | Progress Notes ---
PULMONARY PROGRESS NOTE: PROBLEM LIST: 1. Large effusion, left side, exact etiology is not clearcut. 2. Questionable encephalopathy. 3. GI issue. SYMPTOMS: Nil. No shortness of breath, no coughing, no fever, denies of any chest pain. She is still anorexic. PHYSICAL EXAMINATION: VITAL SIGNS: The patient's temperature is 98.3, blood pressure 150/80, saturation is 90% on supplement oxygen. NECK: Neck veins could not be visualized. CHEST: Shows diminished air entry at the bases with aspiration on the left side, otherwise unremarkable. HEART: Regular. ABDOMEN: Soft, nontender. LABORATORY DATA: The patient's white count is 16.7, hemoglobin 11.3. The patient's electrolytes are okay. The patient's thoracentesis report is still pending except for LDH is 113 and total protein is 2.1 and no leukocytosis done and other cytology, etc. at this particular time is pending. ASSESSMENT: The patient continues to have a large amount of effusion, left side, exact etiology is not clearcut. Cytology and acid-fast cultures are pending. PLANS AND SUGGESTIONS: I will continue current treatment. We will repeat another CT of the chest. If she has persistent large effusion, we may have to consider putting a chest tube and go from there. JOB# [id number]
[2016-09-07] MEDS: Ciprofloxacin 400mg Premix PB 400 MG/200 ML BAG IV SCH ×2 (05:36→17:41)
[2016-09-07 07:19] LABS: HEMATOCRIT 31.4 % (35.0-45.0); HEMOGLOBIN 10.8 gm/dL (11.7-15.5); MEAN CELL VOLUME 85.1 fl (81-100); MEAN CORPUSCULAR HEMOGLOBIN 29.3 pg (27.0-31.0); MEAN CORPUSCULAR HGB CONC 34.4 pg (28.0-36.0); MEAN PLATELET VOLUME 7.9 fl; RED BLOOD COUNT 3.69 Mil/cmm (3.80-5.10); RED CELL DISTRIBUTION WIDTH 14.7 % (11.5-20.0); WHITE BLOOD COUNT 14.8 Th/cmm (4.8-10.8)
[2016-09-07 07:32] LABS: PLATELET COUNT 417 Th/cmm (150-400)
[2016-09-07] MEDS: Albuterol/Ipratropium Neb 3 ML AERS HHN SCH ×4 (08:12→19:26)
[2016-09-07] MEDS: Budesonide 0.5 Mg/2 mL Ud HHN SCH ×2 (08:12→19:27)
[2016-09-07 08:49] LABS: ALB/GLOB RATIO 1.3 (1.0-1.8); ALKALINE PHOSPHATASE 58 U/L (34-104); ANION GAP 9.7 (7.0-16.0); BILIRUBIN,TOTAL 0.4 mg/dL (0.3-1.0); BUN - UREA NITROGEN 14 mg/dL (7-25); BUN/CREATININE RATIO 17.5; CALCIUM SERUM 9.2 mg/dL (8.6-10.3); CARBON DIOXIDE 30.2 mEq/L (21.0-31.0); CHLORIDE 101 mEq/L (98-107); CREATININE - SERUM 0.8 mg/dL (0.6-1.2); GLUCOSE 207 mg/dL (70-105); SGOT 19 U/L (13-39); SGPT/ALT 18 U/L (7-52); SODIUM SERUM 138 mEq/L (136-145)
[2016-09-07 09:10] LABS: POTASSIUM SERUM 2.9 mEq/L (3.5-5.1)
--- NOTE | 2016-09-07 09:16 | Diagnostic Imaging Report ---
CT scan of the chest without intravenous contrast HISTORY: Pneumonia, pneumothorax Total DLP equals 174 CTDI equals 5.8 Axial sections were obtained from a level above the clavicles down to level below the diaphragm. Exam is compared with prior study of September 04, 2016. Compared with the prior exam, extensive parenchymal density noted throughout the left lung with volume loss consistent with atelectasis. Obscuration and obliteration of the distal portion of the left main bronchus. There is a small left pleural effusion. There is a relatively small (10%) left pneumothorax. Shifting the mediastinum to the left side. Coronary artery calcification is seen. No discrete abnormal mediastinal masses. No focal processes seen within the left lung. IMPRESSION: 1. Persistent extensive abnormal parenchymal density in the left lung with volume loss and shift of the mediastinum to the left. Associated narrowing and obscuration of the distal portion of the left main bronchus. Hilar pathology cannot be excluded. 2. Small left pleural effusion 3. Relatively small (10%) left pneumothorax
[2016-09-07] MEDS ORDERED: Potassium Chloride 40 MEQ, Lidocaine 1% 20mL Vial 25 MG in Sodium Chloride 0.9% 250 ML IV ONE (10:05)
[2016-09-07 12:23] LABS: BAND NEUTROPHILE 3 % (0-10); NEUTROPHILS 92 % (40-80); PLATELET ESTIMATE ADEQUATE (NORMAL); TOTAL CELLS COUNTED 100
[2016-09-07 12:24] LABS: PLATELET MORPHOLOGY NORMAL (NORMAL)
[2016-09-07] MEDS ORDERED: Dexamethasone Sodium Phos 10 mg/mL PF Vial ONE (21:08)
[2016-09-07] MEDS ORDERED: Dexamethasone Sodium Phos 4 mg/mL Vial ONE (21:12)
[2016-09-08] MEDS ORDERED: Dexamethasone Sodium Phos 4 mg/mL Vial ONE (02:01)
[2016-09-08] MEDS: Dexamethasone Sodium Phos 4 mg/mL Vial IVP SCH ×4 (02:05→22:25)
[2016-09-08] MEDS: metroNIDAZOLE 500mg/NS 100mL 500 MG/100 ML BAG IV SCH ×3 (05:02→22:23)
[2016-09-08] MEDS: Ciprofloxacin 400mg Premix PB 400 MG/200 ML BAG IV SCH ×2 (05:45→19:52)
--- NOTE | 2016-09-08 07:29 | Progress Notes ---
SUBJECTIVE: The patient is asleep. The patient is on IV antibiotics. The patient is on oxygen via nasal cannula. The patient is on IV fluids. OBJECTIVE: VITAL SIGNS: Temperature 98.2, pulse 116, blood pressure 155/82, respiratory rate 18, O2 saturation 95% on 2 L nasal cannula. CARDIOVASCULAR: S1 and S2. RESPIRATORY: Rales. GASTROINTESTINAL: Soft, positive bowel sounds. LABORATORY DATA: Hematology: WBC of 14.8, hemoglobin is 10.8, hematocrit 31.4, platelet count 417. Chemistry: Sodium is 138, potassium 2.9, chloride 101, bicarbonate 30, anion gap 9.7, BUN 14, creatinine 0.8, GFR is more than 60, glucose is 207, calcium 9.2, T-bili 0.4. AST is 19, ALT is 18, alkaline phosphatase 58. Total protein 5.9, albumin 3.3, globulin 2.6. Microbiology: MRSA screen from 08/29/2016 negative. Urine culture from 08/30/2016 shows mixed urogenital janessa including yeast. Blood culture from 08/31/2016 negative. Stool culture from 08/31/2016 shows normal Gram-negative intact janessa. Yeast only. Shiga toxin from 08/31/2016 is negative. Acid-fast smear negative. Anaerobic and aerobic culture from thoracentesis fluid culture from 09/04/2016 pending. Gram-stain from thoracentesis fluid culture from 09/04/2016 shows no organisms seen. Chest CT from 09/06/2016 shows density, abnormal parenchyma density in the left lung, ____ to left. Some narrowing and obstruction of the distal portion of the left main bronchus, hilar pathology could not be excluded. Small left pleural effusion. There is a small 2+ left pneumothorax. Thoracentesis fluid culture from 09/06/2016 insufficient. ASSESSMENT: 1. Sepsis. 2. Pancolitis. 3. Pneumonia. 4. Pleural effusion. 5. Left pneumothorax. 6. Hypertension. 7. Syncope, secondary to dehydration. 8. History of cerebrovascular accident. 9. Status post bowel resection. 10. History of tobacco use. 11. Lung mass. 12. Brain metastasis. 13. Probable lung cancer. 14. Chronic hypokalemia. 15. Leukocytosis. 16. Anemia. 17. Thrombocytosis. 18. Hyperglycemia. 19. ____ (moderate). PLAN: Continue current medication. Obtain labs in a.m. Further consults. clubhouse manager will arrange for transfer to tertiary facility. JOB# [id number]
[2016-09-08] MEDS: Albuterol/Ipratropium Neb 3 ML AERS HHN SCH ×4 (07:32→20:26)
[2016-09-08 07:56] LABS: ANION GAP 13.3 (7.0-16.0); BUN - UREA NITROGEN 13 mg/dL (7-25); BUN/CREATININE RATIO 18.6; CALCIUM SERUM 9.4 mg/dL (8.6-10.3); CARBON DIOXIDE 26.7 mEq/L (21.0-31.0); CHLORIDE 102 mEq/L (98-107); CREATININE - SERUM 0.7 mg/dL (0.6-1.2); GLUCOSE 175 mg/dL (70-105); SODIUM SERUM 139 mEq/L (136-145)
[2016-09-08 07:57] LABS: HEMOGLOBIN 11.6 gm/dL (11.7-15.5); MEAN CELL VOLUME 86.3 fl (81-100); MEAN CORPUSCULAR HEMOGLOBIN 29.4 pg (27.0-31.0); MEAN CORPUSCULAR HGB CONC 34.1 pg (28.0-36.0); MEAN PLATELET VOLUME 8.3 fl; PLATELET COUNT 440 Th/cmm (150-400); RED BLOOD COUNT 3.93 Mil/cmm (3.80-5.10); RED CELL DISTRIBUTION WIDTH 14.6 % (11.5-20.0)
[2016-09-08 08:48] LABS: BAND NEUTROPHILE 2 % (0-10); NEUTROPHILS 93 % (40-80); PLATELET ESTIMATE ADEQUATE (NORMAL); PLATELET MORPHOLOGY NORMAL (NORMAL); TOTAL CELLS COUNTED 100
[2016-09-08 09:34] LABS: GENTAMICIN TROUGH 0.7 ug/ml (0.2-2.0)
--- NOTE | 2016-09-08 14:11 | Progress Notes ---
PROBLEMS: 1. Abnormal chest x-ray. 2. Left lung effusion and/or atelectasis. 3. Possibility of endobronchial lesion. 4. Altered state of mind with GI issues. SYMPTOMS: Nil. According to the boyfriend ____ for last 2 weeks, no specific aches or pains or shortness of breath, etc. PHYSICAL EXAMINATION: VITAL SIGNS: The patient's temperature is 97, respirations 16, and saturation is in mid 90s on 2 liters. NECK: Veins could not be visualized. CHEST: Shows diminished air entry. There are no other adventitious breath sounds. HEART: Regular. ABDOMEN: Soft, nontender. ASSESSMENT: The patient's repeat CT shows small effusion, ____ gibbs, appears to be significant atelectatic changes, possibility of indicative of endobronchial lesion. PLANS AND SUGGESTIONS: We will await for cytology and if she is not place to tertiary care or secondary at the other hospital, may consider doing bronchoscopy pending cytology in the next few days. [facility]# [id number]
[2016-09-08] MEDS ORDERED: Potassium Chloride 40 MEQ, Lidocaine 1% 20mL Vial 25 MG in Sodium Chloride 0.9% 250 ML IV ONE (14:14)
[2016-09-08] MEDS ORDERED: KCL 20mEq/100mL Premix 40 MEQ/200 ML PIGGYBACK IV SCH (14:30)
[2016-09-08] MEDS: KCL 20mEq/100mL Premix 40 MEQ/200 ML PIGGYBACK IV SCH ×2 (14:31→19:53)
[2016-09-08] MEDS: Sodium Chloride 0.9% 1,000 ML IV SCH ×2 (14:51→23:48)
[2016-09-08] MEDS: Hydrocodone/APAP 5mg/325mg Tab PO PRN (15:32)
[2016-09-08] MEDS ORDERED: Potassium Chloride 20 mEq ER Tab PO ONE (18:55)
[2016-09-08] MEDS: Budesonide 0.5 Mg/2 mL Ud HHN SCH (20:26)
[2016-09-09] MEDS: Dexamethasone Sodium Phos 4 mg/mL Vial IVP SCH ×4 (03:39→21:21)
--- NOTE | 2016-09-09 04:41 | Progress Notes ---
PROBLEM LIST: 1. Abnormal chest x-ray with effusion. 2. Possibly truncal lesion with history of heavy smoking. SYMPTOMS: Nil. No specific new symptom; coughing, wheezing, eating ____ already. According to her, she is eating okay. No respiratory symptoms. PHYSICAL EXAMINATION: VITAL SIGNS: Temperature is 98.2, blood pressure 162/79. ENT: Shows no new changes. CHEST: Shows clear on the right side, left side is obscured air entry, otherwise unremarkable. ASSESSMENT: The patient is clinically stable, not much change, suspect lung cancer primary consideration. PLANS AND SUGGESTIONS: We will wait for cytology. If it is not conclusive, may consider diagnostic bronchoscopy if agreed by family and go from there. JOB# [id number]
[2016-09-09] MEDS: metroNIDAZOLE 500mg/NS 100mL 500 MG/100 ML BAG IV SCH ×3 (05:49→21:23)
[2016-09-09] MEDS: Ciprofloxacin 400mg Premix PB 400 MG/200 ML BAG IV SCH ×2 (06:33→16:20)
[2016-09-09] MEDS: Albuterol/Ipratropium Neb 3 ML AERS HHN SCH ×4 (07:11→19:35)
[2016-09-09 07:56] LABS: ANION GAP 11.7 (7.0-16.0); BUN - UREA NITROGEN 15 mg/dL (7-25); BUN/CREATININE RATIO 18.8; CALCIUM SERUM 9.2 mg/dL (8.6-10.3); CARBON DIOXIDE 29.2 mEq/L (21.0-31.0); CHLORIDE 101 mEq/L (98-107); CREATININE - SERUM 0.8 mg/dL (0.6-1.2); GLUCOSE 168 mg/dL (70-105); POTASSIUM SERUM 3.9 mEq/L (3.5-5.1); SODIUM SERUM 138 mEq/L (136-145)
[2016-09-09] MEDS ORDERED: Potassium Chloride 20 mEq ER Tab PO SCH (09:00)
[2016-09-09 10:32] LABS: HEMATOCRIT 32.1 % (35.0-45.0); HEMOGLOBIN 10.9 gm/dL (11.7-15.5); MEAN CELL VOLUME 85.9 fl (81-100); MEAN CORPUSCULAR HEMOGLOBIN 29.2 pg (27.0-31.0); PLATELET COUNT 384 Th/cmm (150-400); RED BLOOD COUNT 3.74 Mil/cmm (3.80-5.10); RED CELL DISTRIBUTION WIDTH 15.1 % (11.5-20.0); WHITE BLOOD COUNT 10.4 Th/cmm (4.8-10.8)
--- NOTE | 2016-09-09 10:55 | Progress Notes ---
SUBJECTIVE: The patient is awake, alert. The patient is on oxygenation. The patient is on IV antibiotics. The patient is on IV fluids. OBJECTIVE: VITAL SIGNS: Temperature is 97.8, pulse of 96, respiratory rate 16, O2 sat 95% on 2 liters nasal cannula. CARDIOVASCULAR: S1, S2. RESPIRATORY: Rales. GASTROINTESTINAL: Soft. Positive bowel sounds. LABORATORY DATA: Hematology: WBC 13, hemoglobin 9.6, hematocrit ____, platelet count of 440, 92% neutrophils, 1% monocytes. Chemistry: Sodium 139, potassium 3.0, chloride 102, bicarb 26, anion gap of 13, BUN 13, creatinine 0.7, GFR is 160, glucose 175, calcium is 9.4. MICROBIOLOGY: MRSA screen from September 05 negative. Urine culture from August 30 shows mixed urogenital janessa including yeast. Blood cultures from August 31 negative. Sputum culture from August 31 shows normal Gram-negative intact janessa. Yeast only. Shiga toxin from August 31 negative. Thoracentesis fluid and acid-fast smear negative. Thoracentesis fluid culture from September 04, Gram-stain, no organism seen. ASSESSMENT: 1. Sepsis. 2. Pancolitis. 3. Pneumonia. 4. Pleural effusion. 5. Pneumothorax. 6. Hypertension. 7. Syncope secondary to dehydration. 8. History of cerebrovascular accident. 9. Status post bowel resection. 10. History of tobacco use. 11. Lung mass. 12. Brain metastasis. 13. Probable lung cancer. 14. Chronic hypokalemia. 15. Leukocytosis. 16. Anemia. 17. Thrombocytosis. 18. Hyperglycemia. PLAN: Continue current medication. Obtain labs in a.m. Further recommendations per consults. [facility] manager will arrange for tertiary transfer. JOB# [id number] [facility]
--- NOTE | 2016-09-09 12:06 | Diagnostic Imaging Report ---
Portable chest x-ray HISTORY: Pneumonia Compared with prior exam of 2016, there is persistent complete opacification of the left hemithorax with volume loss. Findings are consistent with CT demonstrated changes of primarily atelectasis/collapse. The right lung remains clear. IMPRESSION: 1. No change in the pulmonary status
[2016-09-09 12:10] LABS: TOTAL CELLS COUNTED 100
[2016-09-09 12:11] LABS: NEUTROPHILS 95 % (40-80); PLATELET ESTIMATE ADEQUATE (NORMAL); PLATELET MORPHOLOGY NORMAL (NORMAL)
[2016-09-09] MEDS: Hydrocodone/APAP 5mg/325mg Tab PO PRN (12:34)
[2016-09-09] MEDS: Budesonide 0.5 Mg/2 mL Ud HHN SCH (19:35)
[2016-09-09] MEDS ORDERED: Dexamethasone Sodium Phos 10 mg/mL PF Vial ONE (21:11)
[2016-09-09] MEDS: Sodium Chloride 0.9% 1,000 ML IV SCH (21:23)
[2016-09-10] MEDS: Hydrocodone/APAP 5mg/325mg Tab PO PRN (01:25)
[2016-09-10] MEDS ORDERED: Dexamethasone Sodium Phos 10 mg/mL PF Vial ONE (03:01)
[2016-09-10] MEDS: Dexamethasone Sodium Phos 4 mg/mL Vial IVP SCH ×2 (03:09→09:07)
[2016-09-10] MEDS: metroNIDAZOLE 500mg/NS 100mL 500 MG/100 ML BAG IV SCH ×3 (05:26→21:11)
[2016-09-10 06:54] LABS: HEMATOCRIT 31.8 % (35.0-45.0); HEMOGLOBIN 10.9 gm/dL (11.7-15.5); MEAN CELL VOLUME 86.2 fl (81-100); MEAN CORPUSCULAR HEMOGLOBIN 29.6 pg (27.0-31.0); MEAN CORPUSCULAR HGB CONC 34.4 pg (28.0-36.0); MEAN PLATELET VOLUME 7.7 fl; PLATELET COUNT 356 Th/cmm (150-400); RED BLOOD COUNT 3.69 Mil/cmm (3.80-5.10); RED CELL DISTRIBUTION WIDTH 15.6 % (11.5-20.0); WHITE BLOOD COUNT 10.1 Th/cmm (4.8-10.8)
[2016-09-10] MEDS: Ciprofloxacin 400mg Premix PB 400 MG/200 ML BAG IV SCH ×2 (07:01→16:58)
[2016-09-10] MEDS: Albuterol/Ipratropium Neb 3 ML AERS HHN SCH ×4 (07:27→19:46)
[2016-09-10 07:29] LABS: ANION GAP 6.6 (7.0-16.0); BUN - UREA NITROGEN 16 mg/dL (7-25); BUN/CREATININE RATIO 22.9; CALCIUM SERUM 8.9 mg/dL (8.6-10.3); CARBON DIOXIDE 28.7 mEq/L (21.0-31.0); CHLORIDE 105 mEq/L (98-107); CREATININE - SERUM 0.7 mg/dL (0.6-1.2); GLUCOSE 175 mg/dL (70-105); POTASSIUM SERUM 3.3 mEq/L (3.5-5.1); SODIUM SERUM 137 mEq/L (136-145)
[2016-09-10] MEDS: Budesonide 0.5 Mg/2 mL Ud HHN SCH ×2 (08:06→19:46)
--- NOTE | 2016-09-10 08:26 | Progress Notes ---
SUBJECTIVE: The patient is asleep. The patient is on oxygen nasal cannula. The patient received inpatient neb treatment. The patient is on IV steroids. The patient is on IV antibiotics. The patient is on IV fluids. OBJECTIVE: VITAL SIGNS: Temperature 98.2, pulse 93, blood pressure 153/81, respiratory rate 14, O2 sat 95%. CARDIOVASCULAR: S1, S2. RESPIRATORY: Rales. GASTROINTESTINAL: Soft, positive bowel sounds. LABORATORY DATA: Hematology, WBC 10.4, hemoglobin is 10.9, hematocrit 30.1, platelet count of ____, 95% neutrophils, 4% lymphocytes, 1% monocytes. ESR is 43. Chemistry, sodium ____, potassium 3.9, chloride 101, bicarbonate 29, anion gap 11, BUN 15, creatinine 0.8. GFR is more than 60. Glucose 168, calcium 9.2, C-reactive protein 0.2. Gentamicin peak is 6.1, gentamicin trough is 0.6. MICROBIOLOGY: MRSA screen on August 29 negative. New culture from August 30 shows mixed urogenital janessa including yeast. Blood culture from August 31 negative. Stool culture from August 31 shows yeast. Shiga toxin from August 31 negative. Thoracentesis AFB smear from September 04 negative. Thoracentesis culture from September 04, no organisms seen. Chest x-ray from September 09 shows no change in pulmonary status. There is ____ complete opacification of left pneumothorax with volume loss, ____ lung remains clear. IMPRESSION: 1. Sepsis. 2. Pancolitis. 3. Pneumonia. 4. Pleural effusion. 5. Left pneumothorax. 6. Hypertension. 7. Syncope (secondary to dehydration). 8. Cerebrovascular accident. 9. Status post bowel resection. 10. History of tobacco abuse. 11. Lung mass. 12. Brain metastasis. 13. Anemia. 14. Hyperglycemia. PLAN: Continue current medication. Obtain labs in a.m. Awaiting pathology results. Further recommendations per consults. manager functional will arrange for transfer to tertiary facility. JOB# [id number]
[2016-09-10 09:48] LABS: BAND NEUTROPHILE 2 % (0-10); NEUTROPHILS 93 % (40-80); TOTAL CELLS COUNTED 100
[2016-09-10 09:49] LABS: PLATELET ESTIMATE ADEQUATE (NORMAL); PLATELET MORPHOLOGY NORMAL (NORMAL)
[2016-09-10] MEDS: Sodium Chloride 0.9% 1,000 ML IV SCH (12:06)
[2016-09-10] MEDS: Dexamethasone Sodium Phos 10 mg/mL PF Vial IVP SCH ×2 (12:53→17:01)
[2016-09-10] MEDS: Hydrocodone/APAP 10 mg/325 mg Tab PO PRN (12:57)
--- NOTE | 2016-09-10 13:57 | History & Physical ---
HISTORY OF PRESENT ILLNESS: The patient is a 66-year-old transferred from [facility]. She had been taken there for syncopal episode and drowsy. She also was having nausea, vomiting. She had complained of abdominal pain. Apparently, the patient is lying in bed. She complains of diplopia, difficulty with movement of her eyes especially right side. The patient complains of weakness, unsteady, unable to get up and walk. PAST MEDICAL HISTORY: Hypertension, hemorrhage of the right eye. The patient had CVA in the past and partial bowel resection. ALLERGIES: None known. SOCIAL HISTORY: Smokes. Does not drink. REVIEW OF SYSTEMS: Twelve point negative except for above. PHYSICAL EXAMINATION: VITAL SIGNS: Temperature 98.8, blood pressure 110/58, pulse is around 90. NECK: Supple, no bruits. HEART: Sounds S1, S2. LUNGS: Clear. NEUROLOGIC: The patient is awake. She will follow instructions. The patient has reduced vision in the right eye. The patient's right eye is deviated medially. Limited moving laterally, seems like a sixth nerve or brainstem involvement. Moves her left side reasonably okay. Pupils react. The patient face seems to be okay. Arms, she will lift them both up weak. [id number] was poor, both sides, worse on the left. Legs, she will lift them up, but weak. Reflex about 1-2+ in upper extremity. Knees are about 2+. Gait not tested. INVESTIGATIONS: The patient's CT scan on 09/04/2016 with contrast, multiple lesions noted. Large one in the left frontal lobe, 1.5 cm with edema. They also see other ones in the left frontal and also in the left parietal. The lesions noted in the elia, in the cerebellum, question possible mets. IMPRESSION: 1. Encephalopathy. 2. Brain mets. 3. The patient's chest x-ray abnormal with effusion. MANAGEMENT: We will get an MRI brain ____ Oncology, will need definitive diagnosis for possible radiation. JOB# [id number]
[2016-09-10] MEDS: Polyvinyl Alcohol Ophth Soln 15 mL Bottle EACH EYE PRN (16:58)
[2016-09-11] MEDS: Dexamethasone Sodium Phos 10 mg/mL PF Vial IVP SCH ×4 (00:03→17:38)
[2016-09-11] MEDS: metroNIDAZOLE 500mg/NS 100mL 500 MG/100 ML BAG IV SCH ×3 (05:00→21:24)
--- NOTE | 2016-09-11 06:06 | Progress Notes ---
PULMONARY PROGRESS NOTE: CURRENT PROBLEMS: 1. Abnormal chest x-ray. 2. Brain lesion. 3. Anorexia. SYMPTOMS: Nil. Feeling okay. No pleuritic chest pain, etc. The patient is not in any acute respiratory distress, etc. PHYSICAL EXAMINATION: VITAL SIGNS: The patient's recorded vitals: Temperature is 98.7, blood pressure 150/70, respirations in teens, saturation is 98%-99% on 2 L of oxygen. ENT: Shows no new changes. CHEST: Shows diminished air entry on the left side, otherwise unremarkable. HEART: Regular. ASSESSMENT: The patient has most likely endobronchial lesion. PLANS AND SUGGESTIONS: We will continue current treatment. We will discuss with child support case officer about the transfer. We will discuss with oncologist as well. If needed, we may consider doing a diagnostic bronchoscopy, though prognosis would not change. JOB# [id number]
[2016-09-11] MEDS: Ciprofloxacin 400mg Premix PB 400 MG/200 ML BAG IV SCH ×2 (06:21→17:38)
[2016-09-11] MEDS: Sodium Chloride 0.9% 1,000 ML IV SCH ×3 (06:21→10:59)
[2016-09-11 07:05] LABS: HEMATOCRIT 31.3 % (35.0-45.0); MEAN CELL VOLUME 85.4 fl (81-100); MEAN CORPUSCULAR HEMOGLOBIN 29.9 pg (27.0-31.0); MEAN PLATELET VOLUME 7.7 fl; PLATELET COUNT 347 Th/cmm (150-400); RED BLOOD COUNT 3.67 Mil/cmm (3.80-5.10); RED CELL DISTRIBUTION WIDTH 15.6 % (11.5-20.0); WHITE BLOOD COUNT 9.2 Th/cmm (4.8-10.8)
[2016-09-11 07:20] LABS: ANION GAP 7.9 (7.0-16.0); BUN - UREA NITROGEN 16 mg/dL (7-25); CALCIUM SERUM 8.5 mg/dL (8.6-10.3); CARBON DIOXIDE 30.4 mEq/L (21.0-31.0); CHLORIDE 104 mEq/L (98-107); CREATININE - SERUM 0.8 mg/dL (0.6-1.2); GLUCOSE 176 mg/dL (70-105); POTASSIUM SERUM 3.3 mEq/L (3.5-5.1); SODIUM SERUM 139 mEq/L (136-145)
[2016-09-11] MEDS: Budesonide 0.5 Mg/2 mL Ud HHN SCH ×2 (07:31→20:29)
[2016-09-11] MEDS: Albuterol/Ipratropium Neb 3 ML AERS HHN SCH ×4 (07:32→20:29)
[2016-09-11 08:17] LABS: TOTAL CELLS COUNTED 100
[2016-09-11 08:19] LABS: BAND NEUTROPHILE 4 % (0-10); NEUTROPHILS 94 % (40-80); PLATELET ESTIMATE ADEQUATE (NORMAL)
--- NOTE | 2016-09-11 08:33 | Progress Notes ---
PULMONARY PROGRESS NOTE: PROBLEM LIST: 1. Abnormal chest x-ray. 2. Suspect endobronchial lesion with metastasis to the brain. 4. Significant ____. SYMPTOMS: Nil. The patient is sleepy, awake, alert, but otherwise denies of any specific new symptoms. PHYSICAL EXAMINATION: ENT: Shows no new changes. CHEST: Shows diminished air entry on the left side. HEART: Regular. ABDOMEN: Soft, nontender. EXTREMITIES: Show no peripheral edema. ASSESSMENT: The patient clinically not much changed, being in preparation of transfer to other facility. PLANS AND SUGGESTIONS: We will continue current treatment, etc., and go from there. JOB# [id number]
--- NOTE | 2016-09-11 13:50 | Diagnostic Imaging Report ---
MRI Brain without intravenous Contrast Indication: Brain metastasis Comparison: Prior CT head without IV contrast 09/04/2016 demonstrating multiple mass lesions of the brain. Technique: Multiplanar T1, T2, FLAIR, GRE and diffusion weighted images of the brain were obtained without intravenous contrast. Due to patient's poor IV access, intravenous contrast was not able to be administered. Findings: Images of the brain obtained without contrast demonstrate multifocal areas of restricted diffusion seen throughout the supratentorial and infratentorial regions. Diffuse white matter disease is seen with diffuse areas of vasogenic edema and most pronounced along the left high frontal and high parietal lobe regions. Edema is also seen along left basal ganglia and bilateral cerebellar hemispheres. T1 images demonstrate a high density lesion along the left occipital cortical and subcortical region measuring 1 cm. There is an additional high signal intensity lesion on T1-weighted images within the right frontal cortical/subcortical region. No midline shift. The ventricles are patent at this time. The visualized paranasal sinuses are clear. IMPRESSION: Limited exam due to lack of IV contrast. Diffuse metastatic disease again noted throughout the supratentorial infratentorial regions with areas of vasogenic edema. Multifocal scattered areas of restricted diffusion are noted which may be related to patient's brain metastases, however, superimposed multifocal ischemic infarcts in these regions cannot be excluded. No evidence of midline shift. 1 cm high T1 signal intensity lesion along the left occipital subcortical and cortical region and additional 5 mm T1 high signal intensity lesion seen along the right frontal cortical subcortical region which may be related to underlying hemorrhagic components within the metastases.
[2016-09-11] MEDS: Polyvinyl Alcohol Ophth Soln 15 mL Bottle EACH EYE PRN (16:49)
[2016-09-11] MEDS: Hydrocodone/APAP 10 mg/325 mg Tab PO PRN (21:26)
--- NOTE | 2016-09-11 23:44 | Progress Notes ---
SUBJECTIVE: The patient is on oxygen via nasal cannula. The patient is on IV antibiotics. The patient is on IV steroids. The patient is receiving inpatient nebulizer treatment. The patient is on IV fluids. OBJECTIVE: VITAL SIGNS: Temperature is 97.7, pulse 102, blood pressure 150/78, respiratory rate 19, O2 saturation 94%. CARDIOVASCULAR: S1, S2. RESPIRATORY: Few rales. ABDOMEN: Soft, positive bowel sounds. LABORATORY DATA: Hematology: WBC 10.1, hemoglobin 10.9, hematocrit 31.8, platelet count of 356, 4% lymphocytes, 1% monocytes. Chemistry: Sodium 137, potassium 3.3, chloride 105, bicarbonate 28, anion gap 6.6, BUN 16, creatinine 0.7, GFR is more than 60, glucose is 175, calcium 8.9. Microbiology: MRSA screen from 09/06/2016 negative. Urine culture from 08/30/2016 shows mixed urogenital janessa including yeast. Blood culture from 08/31/2016 negative. Stool culture from 08/31/2016 shows yeast. Shiga toxin from 08/31/2016 negative. AFB screen from 09/04/2016 of thoracentesis fluid is negative. Culture from 09/04/2016 negative. ASSESSMENT: 1. Sepsis. 2. Pancolitis. 3. Pneumonia. 4. Pleural effusion. 5. Left pneumothorax. 6. Hypertension. 7. Syncope, secondary to dehydration. 8. Cerebrovascular accident. 9. Status post bowel resection. 10. History of tobacco use. 11. Lung mass. 12. Brain metastasis. 13. Anemia. 14. Hyperglycemia. 15. Encephalopathy. PLAN: Continue current medication. Obtain labs in a.m. Awaiting pathology results. Further consults. Awaiting transfer to tertiary facility. JOB# [id number] MTDD
--- NOTE | 2016-09-12 06:15 | Progress Notes ---
PULMONARY PROGRESS NOTE: PROBLEM LIST: Abnormal chest x-ray, suspect endobronchial lesion with atelectasis, effusion with severe anorexia with possibly brain metastasis. SYMPTOMS: Nil. Feeling okay, totally asymptomatic. PHYSICAL EXAMINATION: VITAL SIGNS: Temperature is 97.9, blood pressure 140/74, saturation 96%. ENT: Shows no new changes. CHEST: Shows diminished air entry without any other adventitious breath sound, mostly on the left side. HEART: Regular. LUNGS: Right lung appears to be clear. LABORATORY DATA: Electrolytes are okay with potassium 3.3, white count is 7.2 and glucose is 176. ASSESSMENT: The patient is clinically stable with possibly suspect endobronchial lesion. Cytology samples have been lost, not got into the Pathology Department, reason not clear. PLANS AND SUGGESTIONS: Discussed with and the patient at length. We will go ahead and schedule for fiberoptic bronchoscopy tomorrow at around 1 o'clock and all pros and cons and alternatives and possibly of complication were discussed with the patient and family and they are agreeable and do it tomorrow morning. JOB# [id number]
[2016-09-12] MEDS: Sodium Chloride 0.9% 1,000 ML IV SCH ×4 (06:34→16:23)
[2016-09-12] MEDS: Ciprofloxacin 400mg Premix PB 400 MG/200 ML BAG IV SCH ×2 (06:35→17:24)
[2016-09-12] MEDS: Dexamethasone Sodium Phos 10 mg/mL PF Vial IVP SCH ×5 (06:35→21:31)
[2016-09-12] MEDS: metroNIDAZOLE 500mg/NS 100mL 500 MG/100 ML BAG IV SCH ×2 (06:41→12:49)
--- NOTE | 2016-09-12 06:50 | Progress Notes ---
SUBJECTIVE: The patient is on oxygen nasal cannula. The patient is on IV antibiotics. The patient is on IV steroids. The patient is on IV antifungal medications. The patient planned for possible bronchoscopy tomorrow. OBJECTIVE: VITAL SIGNS: Temperature 97.7, pulse of 71, blood pressure is 145/74, respiratory rate 18, O2 saturation 98% on oxygen nasal cannula. CARDIOVASCULAR: S1, S2. RESPIRATORY: Rale. GASTROINTESTINAL: Soft, positive bowel sounds. Labs on the patient is hematology, WBC of 9.2, hemoglobin 11.0, hematocrit 31.3, platelet count of 347, 94% neutrophils, 1% lymphocytes, 1% monocytes, ESR 21. Chemistry, sodium 139, potassium 3.3, chloride 104, bicarbonate 30, anion gap is 7.9, BUN is 16, creatinine 0.8. GFR is more than 60. Glucose 176, calcium 8.5, C-reactive protein is less than 0.2. Microbiology, MRSA screening from August 29 negative. Urine culture from August 30 shows mixed urogenital janessa including yeast. Blood culture from August 31 negative. Shiga toxin from August 31 negative. Stool culture from August 31 shows yeast. Thoracentesis fluid AFB from September 04 negative. Thoracentesis fluid culture from September 04 negative. Thoracentesis cytology from September 04, unable to be done due to low volume of cells. Radiology, brain MRI from September 11 shows diffuse metastatic disease again noted throughout the supratentorial, infratentorial regions with areas of vasogenic edema, multifocal scattered areas on restricted diffusion are noted brain metastasis. No evidence of midline shift. IMPRESSION: 1. Sepsis. 2. Pancolitis. 3. Pneumonia. 4. Pleural effusion. 5. Hemothorax. 6. Hypertension. 7. Syncope secondary to dehydration, resolved. 8. Cerebrovascular accident. 9. Status post bowel resection. 10. History of tobacco abuse. 11. Lung mass. 12. Brain metastasis. 13. Anemia. 14. Hypokalemia. 15. Hyperglycemia. 16. Hypocalcemia. PLAN: Continue current medication. Obtain labs in a.m. The patient planned for possible bronchoscopy tomorrow. manager payroll arranged for transfer to tertiary facility. Further recommendations per consult. JOB# [id number] [facility]
[2016-09-12] MEDS: Budesonide 0.5 Mg/2 mL Ud HHN SCH ×2 (07:29→19:55)
[2016-09-12] MEDS: Albuterol/Ipratropium Neb 3 ML AERS HHN SCH ×4 (07:29→19:54)
[2016-09-12 07:55] LABS: HEMATOCRIT 32.4 % (35.0-45.0); HEMOGLOBIN 11.1 gm/dL (11.7-15.5); MEAN CORPUSCULAR HEMOGLOBIN 29.6 pg (27.0-31.0); MEAN CORPUSCULAR HGB CONC 34.4 pg (28.0-36.0); MEAN PLATELET VOLUME 7.9 fl; PLATELET COUNT 301 Th/cmm (150-400); RED BLOOD COUNT 3.77 Mil/cmm (3.80-5.10); RED CELL DISTRIBUTION WIDTH 15.9 % (11.5-20.0); WHITE BLOOD COUNT 8.9 Th/cmm (4.8-10.8)
[2016-09-12 08:12] LABS: INR 1.32 (0.5-1.4); PROTHROMBIN TIME (TEST) 13.3 SECONDS (9.5-11.5)
[2016-09-12 08:15] LABS: BAND NEUTROPHILE 2 % (0-10); NEUTROPHILS 92 % (40-80); TOTAL CELLS COUNTED 100
[2016-09-12 08:16] LABS: PLATELET ESTIMATE ADEQUATE (NORMAL); PLATELET MORPHOLOGY NORMAL (NORMAL)
[2016-09-12 08:31] LABS: ANION GAP 5.4 (7.0-16.0); BUN - UREA NITROGEN 18 mg/dL (7-25); BUN/CREATININE RATIO 25.7; CALCIUM SERUM 8.4 mg/dL (8.6-10.3); CARBON DIOXIDE 30.6 mEq/L (21.0-31.0); CHLORIDE 105 mEq/L (98-107); CREATININE - SERUM 0.7 mg/dL (0.6-1.2); GLUCOSE 176 mg/dL (70-105); SODIUM SERUM 138 mEq/L (136-145)
[2016-09-12] MEDS ORDERED: Potassium Chloride 40 MEQ, Lidocaine 1% 20mL Vial 25 MG in Sodium Chloride 0.9% 250 ML IV ONE (09:53)
[2016-09-12] MEDS ORDERED: Lidocaine 2% Gel 5 mL TP ONE (12:33)
[2016-09-12] MEDS ORDERED: Cetacaine 56 mL Bottle TP ONE (12:34)
[2016-09-12] MEDS ORDERED: Meperidine 25 mg/mL 1mL Syr ONE (12:59)
[2016-09-12] MEDS ORDERED: Lidocaine 2% Vial 20 mL Vial ONE (13:00)
[2016-09-12] MEDS ORDERED: EPINEPHRine HCL 1 mg/mL 1mL Amp ONE (13:24)
[2016-09-12] MEDS ORDERED: Midazolam 1mg/ml 2 ml vial IV ONE (13:30)
[2016-09-13] MEDS: Albuterol/Ipratropium Neb 3 ML AERS HHN SCH ×4 (07:34→19:26)
[2016-09-13] MEDS: Budesonide 0.5 Mg/2 mL Ud HHN SCH ×3 (07:53→19:25)
[2016-09-13] MEDS ORDERED: Potassium Chloride 20 mEq ER Tab PO ONE (08:10)
[2016-09-13 08:37] LABS: HEMOGLOBIN 12.5 gm/dL (11.7-15.5); MEAN CELL VOLUME 87.4 fl (81-100); MEAN CORPUSCULAR HEMOGLOBIN 29.9 pg (27.0-31.0); MEAN CORPUSCULAR HGB CONC 34.2 pg (28.0-36.0); PLATELET COUNT 289 Th/cmm (150-400); RED BLOOD COUNT 4.19 Mil/cmm (3.80-5.10); RED CELL DISTRIBUTION WIDTH 15.8 % (11.5-20.0); WHITE BLOOD COUNT 9.6 Th/cmm (4.8-10.8)
[2016-09-13 08:49] LABS: HEMATOCRIT 36.7 % (35.0-45.0)
[2016-09-13 09:35] LABS: ANION GAP 9.3 (7.0-16.0); BUN - UREA NITROGEN 14 mg/dL (7-25); CALCIUM SERUM 8.4 mg/dL (8.6-10.3); CARBON DIOXIDE 28.3 mEq/L (21.0-31.0); CHLORIDE 104 mEq/L (98-107); CREATININE - SERUM 0.7 mg/dL (0.6-1.2); GLUCOSE 146 mg/dL (70-105); POTASSIUM SERUM 3.6 mEq/L (3.5-5.1); SODIUM SERUM 138 mEq/L (136-145)
--- NOTE | 2016-09-13 09:40 | Operative Report ---
PROCEDURE NOTE: Bronchoscopy with bronchial washing and ____-aspiration biopsy. INDICATIONS: Left lower lobe atelectasis. NAME OF PROCEDURE: Bronchoscopy with biopsy as mentioned earlier. ANESTHESIA: Conscious sedation with Demerol 50 and 2 mg Versed. Anesthesia is topical Xylocaine 1%, approximately 10 mL used. PROCEDURE NOTE: After informed consent, the patient was brought to the procedure room. The patient having lying flat down and me being in the head of the end, the patient's nasopharyngeal area of both the sides was sprayed with Hurricaine spray. After adequate anesthesia local, the patient with a Q-tip and Xylocaine jelly, left nostril was checked out; it was quite patent. Subsequently, the patient was put a mask with a hole on the left side. After that, the patient's premedication as Demerol and Versed was given and also posterior pharyngeal area was sprayed with 2% of Hurricaine. After being done that, fiberoptic lubricated with Xylocaine jelly was introduced to the left nostril without any difficulty. Upper airway was reached. Vocal cords were visualized, which was approximated ____ was quite sensitive requiring about 2 mL of 1% Xylocaine jelly on that region. After having adequate anesthesia there, the patient's scope was further introduced into the trachea without any difficulty. Trachea looked up okay and on further going down main reji was visualized, which was slightly deviated on the left side. After having install some local anesthesia in both the tracheobronchial tree, first right side was checked out. Right upper lobe, right middle lobe, right lower lobe appeared to be okay without any endobronchial lesions. After having that, the scope was withdrawn and was brought into the left main bronchus. There was old blood clot in the left main bronchus. After cleaning the clear fungating ____ mask almost including 100% lesion before even bifurcating was visualized. After having washed it out and also 1:70,000 dilution 2 mL of epinephrine that was washed out and after having that through the bronchoscope, a biopsy forceps was introduced and 3 or 4 biopsy samples were ____ with very minimal oozing of the blood. After having done that lavaging was done which was aspirated in a separate container and also ____ aspiration biopsy was done with a specialized brush and multiple wedge slices was made for cytology. At the end of the procedure, there was no active bleeding. The patient tolerated the procedure well and hemodynamically pulse ____ in the high 80s and blood pressure was okay, heart rate was okay and immediate recovery was excellent. Routine post bronchoscopy orders were written and the patient was ____. JOB# [id number]
[2016-09-13 09:44] LABS: BAND NEUTROPHILE 1 % (0-10); NEUTROPHILS 91 % (40-80); TOTAL CELLS COUNTED 100
[2016-09-13 09:45] LABS: PLATELET ESTIMATE ADEQUATE (NORMAL); PLATELET MORPHOLOGY NORMAL (NORMAL)
--- NOTE | 2016-09-13 10:07 | Pathology Report ---
[id number] Collection date: 09/12/2016 Surgeon: Dr. Alfonzo Whitley Specimen Description: 1. Bronchial washing for cytology. 2. Left lower lobe biopsy. 3. Left lower lobe smear for cytology. Gross Description: Part I: Received in formalin is approximately 15 ml of reddish water fluid. The entire specimen is sent for cytology processing. Gross Description: Part II: Received in formalin are two akbar soft tissue fragments ranging from 0.1 to 0.2 cm in greatest dimension. Totally submitted in one cassette labeled B. Gross Description: Part III: Received in formalin are four glass slides in alcohol fixative. The entire specimen is sent for cytology staining. Microscopic Description: Part I: Examination of two cytospins and one cell block shows scattered clusters of small to medium cells with marked nuclear atypia and pleomorphism. The nuclei are round to oval and show molding with some prominent nucleoli. The background shows bronchial epithelial cells and squamous admixed with inflammatory cells that consist of mostly neutrophils. Diagnosis: Part I: Poorly differentiated malignant neoplasm (bronchial washing cytology). Microscopic Description: Part II: The histologic sections show two small fragments of partially necrotic tissue with a proliferation of highly atypical malignant appearing cells identified. These cells are small to medium in size and show round and oval nuclei with molding some prominent nucleoli. The background shows extensive necrosis and degeneration. Diagnosis: Part II: Poorly differentiated malignant neoplasm (left lower lobe bronchial biopsy). Microscopic Description: Part III: Examination of four PAP stained slides show scattered clusters of highly atypical malignant appearing cells. These cells are small to medium in size and form tight cohesive clusters with nuclear peomorphism and molding. The background shows blood and inflammatory cells admixed with bronchial epithelial cells. Diagnosis: Part III: Poorly differentiated malignant neoplasm (left lower lobe smear cytology). Comment: A poorly differentiated malignant neoplasm is identified in this specimen. The tumor cells are generally small and show high grade histology with extensive necrosis present. Additional immunohistochemical studies are being performed to evaluate for the possibility of small cell neuroendocrine carcinoma, and the results of these specialized studies will be issued as a supplemental report. These findings are discussed with Dr. Justin Snyder on . [facility]# [id number] [facility]
[2016-09-13] MEDS: Dexamethasone Sodium Phos 4 mg/mL Vial IVP SCH ×3 (10:54→22:35)
--- NOTE | 2016-09-13 20:36 | Progress Notes ---
SUBJECTIVE: The patient is asleep. The patient is on oxygen via nasal cannula. The patient underwent bronchoscopy today. The patient is on IV antibiotics. The patient is receiving inpatient neb treatment. The patient is on IV steroids. OBJECTIVE: VITAL SIGNS: Temperature is 98.4, pulse of 90, blood pressure is 139/76, respiratory rate 18, O2 saturation 95% on oxygen via nasal cannula. CARDIOVASCULAR: S1, S2. RESPIRATORY: Few rales. GASTROINTESTINAL: Soft. Positive bowel sounds. LABORATORY DATA: Hematology: WBC is 8.9, hemoglobin 11.1, hematocrit 32.4, platelet count of 301, 92% neutrophils, 2% lymphocytes, 4% monocytes. PT 13.3, INR 1.32, PTT 26.5. Chemistry: Sodium is 138, potassium 3.0, chloride 105, bicarbonate 30, anion gap of 5, BUN 18, creatinine 0.7. GFR is more than 60. Glucose is 176. Calcium is 8.4. Microbiology: MRSA screen from 08/29/2016 is negative. Urine culture from 08/30/2016 shows mixed urogenital janessa including yeast. Blood culture from 08/31/2016 negative. Stool culture 08/31/2016 shows yeast. Shiga toxin from 08/31/2016 is negative. AFB smear from 09/04/2016 from thoracentesis fluid is negative. Thoracentesis fluid culture from 09/04/2016 is negative. Radiology Tests: No new radiology tests. ASSESSMENT: 1. Sepsis. 2. Pancolitis. 3. Pneumonia. 4. Pleural effusion. 5. Left pneumothorax. 6. Hypertension. 7. Syncope secondary to dehydration (resolved). 8. History of cerebrovascular accident. 9. Status post bowel resection. 10. History of tobacco abuse. 11. Lung mass. 12. Brain metastasis. 13. Anemia. 14. Hypokalemia. 15. Hyperglycemia. 16. Hypercalcemia. PLAN: Continue current medication and treatment. Awaiting pathology report from bronchoscopy today. Further recommendation per consults. Awaiting transfer to tertiary facility. JOB# [id number]
[2016-09-13] MEDS ORDERED: Dexamethasone Sodium Phos 4 mg/mL Vial ONE (22:30)
--- NOTE | 2016-09-14 01:14 | Progress Notes ---
SUBJECTIVE: The patient is awake and alert. The patient is on oxygen via nasal cannula. The patient is receiving inpatient nebulizer treatment. The patient is on IV steroids. The patient is on IV antibiotics. The patient is receiving inpatient rehab therapy. OBJECTIVE: VITAL SIGNS: Temperature is 97.7, pulse 90, blood pressure 161/76, respiratory rate 18, and O2 sat 98% on oxygen via nasal cannula. CARDIOVASCULAR: S1 and S2. RESPIRATORY: Rales. ABDOMEN: Soft. Positive bowel sounds. LABORATORY DATA: Hematology: WBC is 8.9, hemoglobin 8.1, hematocrit 32.4, platelet count of 301,000, and 92% neutrophils, and 2% lymphocytes. PT 13.3, INR 1.3. PTT 26.5. Chemistry: Sodium 138, potassium 3.0, chloride 105, bicarb 30, anion gap 5.4, BUN 18, and creatinine 0.7. GFR is more than 60. Glucose is 176. Calcium 8.4. Microbiology: MRSA screen from 08/29/2016 is negative. Urine culture from 08/30/2016 shows mixed janessa. Blood culture from 08/31/2016 is negative. Stool culture from 08/31/2016 shows yeast only. Shiga toxin from 08/31/2016 is negative. Thoracentesis fluid culture from 09/04/2016 is negative for AFB smear. Thoracentesis fluid culture from 09/04/2016 is negative for cultures. ASSESSMENT: 1. Sepsis. 2. Pancolitis. 3. Pneumonia. 4. Pleural effusion. 5. Left hemothorax. 6. Hypertension. 7. Syncope secondary to dehydration (resolved). 8. Cerebrovascular accident. 9. Status post bowel resection. 10. History of tobacco abuse. 11. Lung mass. 12. Brain metastasis. 13. Anemia. 14. Hypokalemia. 15. Hypercalcemia. PLAN: Continue current medication. Obtain labs in a.m. We will correct potassium deficiency. We are awaiting pathology report from bronchoscopy. Awaiting transfer to tertiary center. concert manager will arrange for transfer to tertiary center. JOB# [id number] [facility]
[2016-09-14] MEDS: Meperidine 25 mg/mL 1mL Syr IVP PRN ×3 (01:56→21:20)
[2016-09-14] MEDS: Dexamethasone Sodium Phos 4 mg/mL Vial IVP SCH ×4 (04:42→21:07)
[2016-09-14] MEDS: Albuterol/Ipratropium Neb 3 ML AERS HHN SCH ×4 (07:24→19:29)
[2016-09-14] MEDS: Sodium Chloride 0.9% 1,000 ML IV SCH (10:29)
[2016-09-14 10:30] LABS: MEAN CORPUSCULAR HEMOGLOBIN 29.8 pg (27.0-31.0); MEAN CORPUSCULAR HGB CONC 34.2 pg (28.0-36.0); MEAN PLATELET VOLUME 8.3 fl; PLATELET COUNT 235 Th/cmm (150-400); RED BLOOD COUNT 3.29 Mil/cmm (3.80-5.10); RED CELL DISTRIBUTION WIDTH 16.2 % (11.5-20.0)
[2016-09-14 10:33] LABS: HEMATOCRIT 28.6 % (35.0-45.0); HEMOGLOBIN 9.8 gm/dL (11.7-15.5); WHITE BLOOD COUNT 7.2 Th/cmm (4.8-10.8)
[2016-09-14 10:59] LABS: ANION GAP 7.8 (7.0-16.0); BUN - UREA NITROGEN 13 mg/dL (7-25); BUN/CREATININE RATIO 21.7; CALCIUM SERUM 8.1 mg/dL (8.6-10.3); CARBON DIOXIDE 28.4 mEq/L (21.0-31.0); CHLORIDE 102 mEq/L (98-107); CREATININE - SERUM 0.6 mg/dL (0.6-1.2); GLUCOSE 235 mg/dL (70-105); POTASSIUM SERUM 3.2 mEq/L (3.5-5.1); SODIUM SERUM 135 mEq/L (136-145)
[2016-09-14 11:05] LABS: BAND NEUTROPHILE 1 % (0-10); METAMYELOCYTE 2 % (0-0); NEUTROPHILS 92 % (40-80); PLATELET ESTIMATE ADEQUATE (NORMAL); PLATELET MORPHOLOGY NORMAL (NORMAL); TOTAL CELLS COUNTED 100
[2016-09-14] MEDS ORDERED: Potassium Chloride 20 mEq ER Tab PO ONE (16:27)
--- NOTE | 2016-09-14 23:51 | Progress Notes ---
SUBJECTIVE: The patient is asleep. The patient is on oxygen nasal cannula. The patient is on IV antibiotics. The patient is receiving inpatient neb treatment. The patient is on IV steroids. The patient is on IV fluids. OBJECTIVE: VITAL SIGNS: Temperature 97.2, pulse 85, blood pressure 150/68, respirations 20, O2 sat 95% on oxygen nasal cannula. CARDIOVASCULAR: S1 and S2. RESPIRATORY: Rales. ABDOMEN: Soft. Positive bowel sounds. LABORATORY DATA: Hematology: WBC 7.2, hemoglobin 9.8, hematocrit 28.6, platelet count of 235, 92 segs. Chemistry: Sodium 135, potassium per labs, chloride 102, bicarbonate 28, anion gap 7.8, BUN 13, creatinine 0.6. GFR is more than 60. Glucose 235, calcium 8.1. Microbiology: MRSA screen from 08/29/2016, negative. Urine culture from 08/30/2016, shows mixed janessa with yeast. Blood culture 08/31/2016, negative. Stool culture from 08/31/2016 shows yeast. Shiga toxin from 08/31/2016 negative. Thoracentesis fluid AFB from 09/04/2016, negative. Thoracentesis culture from 09/04/2016 negative. Bronchial washing from 09/12/2016 gram stain shows gram positive rods. Sputum culture pending. Pathology report from 09/12/2016 from bronchoscopy shows poorly differentiated neoplasm. ASSESSMENT: 1. Sepsis. 2. Pancolitis. 3. Pneumonia. 4. Pleural effusion. 5. Hypertension. 6. Syncope secondary dehydration (resolved). 7. Cerebrovascular accident. 8. Status post bowel resection. 9. History of tobacco abuse. 10. Lung mass. 11. Brain metastasis. 12. Anemia. 13. Hyponatremia. 14. Hypokalemia. 15. Hyperglycemia. 16. Hypercalcemia. 17. Poor differential malignant neoplasm of lung. PLAN: Continue current medications and treatment. Obtain labs in a.m. Case discussed with [facility] and they require immistochemical studies prior to transfer to [facility]. JOB# [id number] [facility]
--- NOTE | 2016-09-15 00:52 | Infectious Disease Prog Note ---
Infectious Disease Subjective - Review of Systems Service Date: 09/15/16 Subjective: cc colitis/oral candisda hpi- pt wbc 7k on acx ros no fever o/e vss chets claer abd soft less tender dx diverticuliutios plan diflucan Physical Exam: General: Alert and Oriented x3, No Acute Distress HEENT: EOMI Bilaterally, PERRLA Bilaterally, Head is normocephalic, atraumatic on inspection.oral gabbi Cardio: +S1/S2 Auscultated, RRR, no murmurs/rubs/gallops noted Respiratory: Clear to Auscultate Bilaterally Abdominal: Soft, Nondistended, tender to palpation x 4 quadrants Genital/Urinary: Extremities: No Edema noted in the lower extremities Neurological: Cranial Nerves II-XII intact bilaterally, Gait Steady, No Focal Deficits noted. Infectious Disease Objective - Results Result Diagrams: 09/14/16 09:35 09/14/16 09:35 Recent Labs: Laboratory Last Values WBC 7.2 Th/cmm (4.8-10.8) D 09/14/16 09:35 RBC 3.29 Mil/cmm (3.80-5.10) L 09/14/16 09:35 Hgb 9.8 gm/dL (11.7-15.5) L D 09/14/16 09:35 Hct 28.6 % (35.0-45.0) L D 09/14/16 09:35 MCV 87.0 fl (81-100) 09/14/16 09:35 MCH 29.8 pg (27.0-31.0) 09/14/16 09:35 MCHC Differential 34.2 pg (28.0-36.0) 09/14/16 09:35 RDW 16.2 % (11.5-20.0) 09/14/16 09:35 Plt Count 235 Th/cmm (150-400) 09/14/16 09:35 MPV 8.3 fl 09/14/16 09:35 Neutrophils % 88.9 % (40.0-80.0) H 09/05/16 05:48 Band Neutrophils % 1 % (0-10) 09/14/16 09:35 Lymphocytes % 9.7 % (20.0-50.0) L 09/05/16 05:48 Monocytes % 1.1 % (2.0-10.0) L 09/05/16 05:48 Eosinophils % 0.2 % (0.0-5.0) 09/05/16 05:48 Basophils % 0.1 % (0.0-2.0) 09/05/16 05:48 Neutrophils (Manual) 92 % (40-80) H 09/14/16 09:35 Lymphocytes 1 % (20-50) L 09/14/16 09:35 Monocytes 4 % (2-10) 09/14/16 09:35 Eosinophils 0 % (0-5) 09/06/16 10:32 Metamyelocytes 2 % (0-0) H 09/14/16 09:35 Platelet Estimate ADEQUATE (NORMAL) 09/14/16 09:35 Platelet Morphology NORMAL (NORMAL) 09/14/16 09:35 RBC Morph Micro Appear NORMAL (NORMAL) 09/14/16 09:35 ESR 29 mm/hr (0-30) 09/14/16 09:35 PT 13.3 SECONDS (9.5-11.5) H 09/12/16 07:19 INR 1.32 (0.5-1.4) 09/12/16 07:19 PTT (Actin FS) 26.5 SECONDS (26.0-38.0) 09/12/16 07:19 Specimen Source Arterial 09/04/16 12:00 Sample Site RB 09/04/16 12:00 pH 7.50 (7.35-7.45) H 09/04/16 12:00 pCO2 46.0 mmHg (35.0-45.0) H 09/04/16 12:00 pO2 67.0 mmHg (80.0-100.0) L 09/04/16 12:00 HCO3 35.9 mmol/L (20.0-26.0) H 09/04/16 12:00 Base Excess 11.3 mmol/L (-3.0-3.0) H 09/04/16 12:00 O2 Saturation 95.0 % (92.0-100.0) 09/04/16 12:00 Tim Test NA 09/04/16 12:00 Vent Rate NA 09/04/16 12:00 Inspired O2 32 09/04/16 12:00 Tidal Volume NA 09/04/16 12:00 PEEP NA 09/04/16 12:00 Pressure (ins/psv/peep) NA 09/04/16 12:00 Critical Value JOANNE 09/04/16 12:00 Sodium 135 mEq/L (136-145) L 09/14/16 09:35 Potassium 3.2 mEq/L (3.5-5.1) L 09/14/16 09:35 Chloride 102 mEq/L (98-107) 09/14/16 09:35 Carbon Dioxide 28.4 mEq/L (21.0-31.0) 09/14/16 09:35 Anion Gap 7.8 (7.0-16.0) 09/14/16 09:35 BUN 13 mg/dL (7-25) 09/14/16 09:35 Creatinine 0.6 mg/dL (0.6-1.2) 09/14/16 09:35 Est GFR ( Amer) > 60.0 ml/min (>90) 09/14/16 09:35 Est GFR (Non-Af Amer) > 60.0 ml/min 09/14/16 09:35 BUN/Creatinine Ratio 21.7 09/14/16 09:35 Glucose 235 mg/dL (70-105) H 09/14/16 09:35 Hemoglobin A1c % 6.0 % (4.0-6.0) 09/07/16 06:50 Plasma/Ser Osmolality 287 mOsmol/kg (280-301) 09/04/16 06:00 Calcium 8.1 mg/dL (8.6-10.3) L 09/14/16 09:35 Total Bilirubin 0.4 mg/dL (0.3-1.0) 09/07/16 06:50 AST 19 U/L (13-39) 09/07/16 06:50 ALT 18 U/L (7-52) 09/07/16 06:50 Alkaline Phosphatase 58 U/L (34-104) 09/07/16 06:50 C-Reactive Protein < 0.2 mg/dL (0.0-0.9) 09/14/16 09:35 Total Protein 5.9 gm/dL (6.0-8.3) L 09/07/16 06:50 Albumin 3.3 gm/dL (3.7-5.3) L 09/07/16 06:50 Globulin 2.6 gm/dL 09/07/16 06:50 Albumin/Globulin Ratio 1.3 (1.0-1.8) 09/07/16 06:50 Prealbumin 28 mg/dL (10-36) 09/06/16 10:32 Urine Source CLEAN C 08/30/16 12:00 Urine Color YELLOW 08/30/16 12:00 Urine Clarity SL. CLOUDY (CLEAR) 08/30/16 12:00 Urine pH 5.5 08/30/16 12:00 Ur Specific [place] (1.005-1.030) 08/30/16 12:00 Urine Protein TRACE mg/dL (NEGATIVE) 08/30/16 12:00 Urine Glucose (UA) NEGATIVE mg/dL (NEGATIVE) 08/30/16 12:00 Urine Ketones NEGATIVE mg/dL (NEGATIVE) 08/30/16 12:00 Urine Blood MODERATE (NEGATIVE) H 08/30/16 12:00 Urine Nitrate NEGATIVE (NEGATIVE) 08/30/16 12:00 Urine Bilirubin NEGATIVE (NEGATIVE) 08/30/16 12:00 Urine Urobilinogen 0.2 E.U./dL (0.2 - 1.0) 08/30/16 12:00 Ur Leukocyte Esterase SMALL (NEGATIVE) H 08/30/16 12:00 Urine RBC 3-6 /hpf (0-5) 08/30/16 12:00 Urine WBC 10-25 /hpf (0-5) H 08/30/16 12:00 Ur Epithelial Cells MODERATE /lpf (FEW) 08/30/16 12:00 Urine Bacteria MANY /hpf (NONE SEEN) 08/30/16 12:00 Urine Osmolality 361 mOsmol/kg 09/05/16 17:10 Ur Random Sodium 121 mmol/L 09/05/16 17:10 Ur Random Potassium 14.0 mmol/L 09/05/16 17:10 Fluid Source PLEURAL 09/04/16 15:15 Fluid Color YELLOW 09/04/16 15:15 Fluid Appearance CLEAR 09/04/16 15:15 Fluid pH 8.0 09/04/16 15:15 Fluid WBC 0 /cumm 09/04/16 15:15 Fluid RBC 70 /cumm 09/04/16 15:15 Fluid Glucose 145.0 mg/dL 09/04/16 15:15 Fluid Total Protein 2.1 g/dL 09/04/16 15:15 Fluid LDH 113 U/L 09/04/16 15:15 Fluid Amylase 5 U/L 09/04/16 15:15 Stool Leukocyte NO WBC SEEN 08/31/16 08:10 Gentamicin Peak 6.1 ug/ml (4.0-8.0) 09/09/16 15:00 Gentamicin Trough 0.9 ug/ml (0.2-2.0) 09/13/16 08:15 - Physical Exam Vitals and I&O: Vital Signs Temp 97.7 F 09/14/16 20:00 Pulse 82 09/14/16 21:10 Resp 18 09/14/16 21:10 BP 151/75 09/14/16 20:00 Pulse Ox 98 09/14/16 21:10 Intake & Output 09/14/16 09/14/16 09/15/16 06:59 18:59 06:59 Intake Total 900 250 Output Total 1 Balance 900 249 Weight (lbs) 65.771 kg Intake: Oral 900 250 Output: Stool 1 Other: # Voids 4 5 Stool Characteristics Soft Soft Soft Active Medications: Current Medications Acetaminophen (Tylenol) 650 mg PO Q6H PRN PRN Reason: Mild Pain/Headache/T above 101 Stop: 10/28/16 03:52 Last Admin: 09/14/16 00:17 Dose: 650 mg Acetylcysteine (Mucomyst 20%) 5 ml / ( ) HHN BIDRT [facility] Stop: 11/02/16 18:59 Last Admin: 09/14/16 07:24 Dose: 5 ml Al Hydrox/Mg Hydrox/Simethicone (Maalox) 30 ml PO Q6H PRN PRN Reason: Constipation Stop: 10/28/16 03:52 Albuterol/Ipratropium (Duoneb Neb) 3 ml HHN [id number] [facility] Stop: 11/02/16 14:59 Last Admin: 09/14/16 19:29 Dose: 3 ml Artificial Tears (Artificial Tears Ophth Soln) 1 drop EACH EYE BID PRN PRN Reason: Dry Eye Stop: 11/08/16 13:53 Last Admin: 09/11/16 16:49 Dose: 1 drop Budesonide (Pulmicort) 0.5 mg HHN BIDRT [facility] Stop: 11/02/16 18:59 Last Admin: 09/13/16 19:25 Dose: 0.5 mg Dexamethasone Sodium Phosphate (Decadron) 4 mg IVP Q6H [facility] Stop: 11/12/16 09:59 Last Admin: 09/14/16 21:07 Dose: 4 mg Fluconazole (Diflucan) 100 mg PO DAILY [facility] Stop: 09/20/16 08:59 Last Admin: 09/14/16 08:33 Dose: 100 mg Sodium Chloride (Nacl 0.9%) 1,000 mls @ 100 mls/hr IV .Q10H [facility] Stop: 11/07/16 09:14 Last Admin: 09/14/16 10:29 Dose: 100 mls/hr Lorazepam (Ativan) 1 mg PO Q6HR PRN; Protocol PRN Reason: Leg Cramps Stop: 11/12/16 13:05 Last Admin: 09/14/16 21:05 Dose: 1 mg Magnesium Hydroxide (Milk Of Magnesia) 30 ml PO HS PRN PRN Reason: Constipation Stop: 10/28/16 03:52 Meperidine HCl (Demerol) 25 mg IVP Q6H PRN PRN Reason: Severe Pain Stop: 11/12/16 10:23 Last Admin: 09/14/16 21:20 Dose: 25 mg Metoprolol Tartrate (Lopressor) 25 mg PO BID [facility] Stop: 11/09/16 16:59 Last Admin: 09/14/16 16:30 Dose: 25 mg Miscellaneous (Vte Chemical Prophylaxis Screen/ Admission) 1 ea [facility] PRN PRN PRN Reason: PROTOCOL Stop: 10/28/16 10:29 Ondansetron HCl (Zofran) 4 mg IVP Q6H PRN PRN Reason: Nausea / Vomiting Stop: 10/28/16 03:52 Last Admin: 09/10/16 13:05 Dose: 4 mg - Procedures Procedures: Procedures Procedure Code Date ASPIRATE PLEURA W/ IMAGING 18045 08/29/16 BRONCHOSCOPY W/BIOPSY(S) 49005 08/29/16 DRAINAGE OF LEFT MAIN BRONCHUS, ENDO, DIAGN [id number] 08/29/16 DRAINAGE OF LEFT PLEURAL CAVITY, PERCUTANEOUS APPROACH [id number] 08/29/16 EXCISION OF LEFT MAIN BRONCHUS, ENDO, DIAGN [id number] 08/29/16
[2016-09-15] MEDS: Dexamethasone Sodium Phos 4 mg/mL Vial IVP SCH ×4 (04:26→23:16)
[2016-09-15] MEDS: Meperidine 25 mg/mL 1mL Syr IVP PRN (05:03)
--- NOTE | 2016-09-15 06:36 | Progress Notes ---
PULMONARY PROGRESS NOTE PROBLEM LIST: 1. Left lung atelectasis. 2. 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 3. Metastasis. 4. ____ because of possibly paraneoplastic symptoms. SYMPTOMS: Nil. The patient is sleeping, arousable, no specific new symptoms. PHYSICAL EXAMINATION: VITAL SIGNS: Temperature is 97.2, blood pressure 150/58, saturation in mid 90s. CHEST: Findings shows diminished air entry on the left side, otherwise unremarkable. HEART: Regular. LABORATORY DATA: Potassium is 3.2. 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 PLANS AND SUGGESTIONS: May require chemotherapy radiation, we will leave it up to Dr. Merino and continue rest of the treatment. I had discussed with Dr. Snyder briefly yesterday. JOB# [id number]
[2016-09-15] MEDS: Albuterol/Ipratropium Neb 3 ML AERS HHN SCH ×4 (07:29→20:32)
[2016-09-15] MEDS: Budesonide 0.5 Mg/2 mL Ud HHN SCH ×2 (07:29→20:31)
[2016-09-15 17:14] LABS: ANION GAP 4.9 (7.0-16.0); BUN - UREA NITROGEN 10 mg/dL (7-25); CALCIUM SERUM 7.5 mg/dL (8.6-10.3); CHLORIDE 107 mEq/L (98-107); CREATININE - SERUM 0.5 mg/dL (0.6-1.2); GLUCOSE 114 mg/dL (70-105); SODIUM SERUM 138 mEq/L (136-145)
[2016-09-15 17:43] LABS: POTASSIUM SERUM 2.9 mEq/L (3.5-5.1)
[2016-09-15] MEDS ORDERED: KCL 20mEq/100mL Premix 20 MEQ/100 ML PIGGYBACK IV SCH (18:15)
[2016-09-16] MEDS: Meperidine 25 mg/mL 1mL Syr IVP PRN ×3 (01:14→20:30)
[2016-09-16] MEDS ORDERED: KCL 20mEq/100mL Premix 20 MEQ/100 ML PIGGYBACK IV ONE (04:02)
--- NOTE | 2016-09-16 04:44 | Progress Notes ---
SUBJECTIVE: The patient is awake and alert. The patient is on oxygen nasal cannula. The patient is on IV steroids. The patient received inpatient treatment. The patient is on IV fluids. OBJECTIVE: VITAL SIGNS: Temperature 97.6, pulse 99, blood pressure 127/71, respirations 18, O2 saturation is 96% on oxygen via nasal cannula. CARDIOVASCULAR: S1 and S2. RESPIRATORY: Few rales. ABDOMEN: Soft. Positive bowel sounds. LABORATORY DATA: Hematology, WBC 7.2, hemoglobin 9.8, hematocrit is 28.6, platelet count is 235 with 92% segs. Chemistry: Sodium 135, potassium 3.2, chloride 102, bicarbonate 28, anion gap 7.8, BUN 13, creatinine 0.6, GFR is more than 60, glucose is 235, calcium 8.1, C-reactive protein is 0.2. MICROBIOLOGY: MRSA screen from August 29 negative. Urine culture from August 30 showed mixed urogenital janessa including yeast. Blood culture from August 31 negative. Stool culture from August 31 negative. Shiga toxin from August 31 negative. Thoracentesis fluid from September 04, AFB negative. Fluid culture from September 04 negative. Bronchial washing from September 12, shows moderate yeast resembling Beth albicans and other yeast. ASSESSMENT: 1. Anemia. 2. Hyponatremia. 3. Hypokalemia. 4. Hypoglycemia. 5. Hypocalcemia. 6. Sepsis. 7. Pancolitis. 8. Pneumonia. 9. Pleural effusion. 10. Hypertension. 11. Syncope secondary to dehydration (resolved). 12. Cerebrovascular accident. 13. Status post bowel resection. 14. Tobacco abuse. 15. Lung mass. 16. Brain metastasis. 17. Poorly differential malignant neoplasm of lung. PLAN: Continue current mediation and treatment. Obtain labs in a.m. studies. Further recommendations per consults. net manager will arrange transfer to [facility] once other studies are available. JOB# [id number] RENUKA
--- NOTE | 2016-09-16 06:09 | Progress Notes ---
PROBLEM LIST: 1. Left-sided atelectasis: 2. Small cell carcinoma, but there is completely obstruction in the lung on the left side. 3. Underlying possibly mets. SYMPTOMS: Nil, feeling okay, offers no specific new symptoms at that particular time. PHYSICAL EXAMINATION: VITAL SIGNS: The patient's recorded vitals, BP is 110/70, respirations about 20, and heart rate is 80, saturation is okay with supplemental oxygen. NECK: Neck veins not visualized. CHEST: Shows diminished air entry. No other adventitious breath sounds on the left side. HEART: Regular. ABDOMEN: Soft, nontender. ASSESSMENT: The patient clinically appears to be reasonably stable. PLANS AND SUGGESTIONS: We will go ahead and continue current treatment, we will follow through laboratory studies in next few days. Care and plan, diagnosis discussed with the patient's at the bedside. JOB# [id number]
[2016-09-16 06:55] LABS: ANION GAP 4.2 (7.0-16.0); BUN - UREA NITROGEN 11 mg/dL (7-25); BUN/CREATININE RATIO 18.3; CALCIUM SERUM 8.6 mg/dL (8.6-10.3); CARBON DIOXIDE 31.9 mEq/L (21.0-31.0); CHLORIDE 104 mEq/L (98-107); CREATININE - SERUM 0.6 mg/dL (0.6-1.2); GLUCOSE 144 mg/dL (70-105); POTASSIUM SERUM 4.1 mEq/L (3.5-5.1); SODIUM SERUM 136 mEq/L (136-145)
[2016-09-16] MEDS: Albuterol/Ipratropium Neb 3 ML AERS HHN SCH ×4 (07:01→19:34)
[2016-09-16 07:19] LABS: HEMOGLOBIN 11.4 gm/dL (11.7-15.5); MEAN CELL VOLUME 86.7 fl (81-100); MEAN CORPUSCULAR HEMOGLOBIN 29.9 pg (27.0-31.0); MEAN CORPUSCULAR HGB CONC 34.5 pg (28.0-36.0); MEAN PLATELET VOLUME 8.5 fl; PLATELET COUNT 214 Th/cmm (150-400); RED BLOOD COUNT 3.81 Mil/cmm (3.80-5.10); RED CELL DISTRIBUTION WIDTH 17.3 % (11.5-20.0)
[2016-09-16 07:37] LABS: WHITE BLOOD COUNT 9.6 Th/cmm (4.8-10.8)
[2016-09-16] MEDS: Polyvinyl Alcohol Ophth Soln 15 mL Bottle EACH EYE PRN (08:18)
[2016-09-16 09:42] LABS: BAND NEUTROPHILE 1 % (0-10); EOSINOPHIL 1 % (0-5); NEUTROPHILS 92 % (40-80); TOTAL CELLS COUNTED 100
[2016-09-16 09:43] LABS: PLATELET ESTIMATE ADEQUATE (NORMAL); PLATELET MORPHOLOGY NORMAL (NORMAL)
[2016-09-16] MEDS: Dexamethasone Sodium Phos 4 mg/mL Vial IVP SCH ×2 (09:49→22:34)
--- NOTE | 2016-09-16 11:21 | Diagnostic Imaging Report ---
Portable chest x-ray HISTORY: Shortness of breath, vascular catheter placement Compared with prior exam of September 09, 2016, there remains complete opacification the left hemithorax. A new left-sided vascular catheter is seen. The tip extends into the region of the superior vena cava. IMPRESSION: 1. New vascular catheter with the tip in the region of the superior vena cava 2. Persistent complete opacification of the left hemithorax.
--- NOTE | 2016-09-16 18:17 | Infectious Disease Prog Note ---
Infectious Disease Subjective - Review of Systems Service Date: 09/16/16 Subjective: cc colitis/oral candisda hpi- pt wlung bx small cell ca o/e vss chets claer abd soft less tender dx oral gabbi diverticuliutios plan diflucan Physical Exam: General: Alert and Oriented x3, No Acute Distress HEENT: oral gabbi EOMI Bilaterally, PERRLA Bilaterally, Head is normocephalic, atraumatic on inspection.oral gabbi Cardio: +S1/S2 Auscultated, RRR, no murmurs/rubs/gallops noted Respiratory: Clear to Auscultate Bilaterally Abdominal: Soft, Nondistended, tender to palpation x 4 quadrants Genital/Urinary: Extremities: No Edema noted in the lower extremities Neurological: Cranial Nerves II-XII intact bilaterally, Gait Steady, No Focal Deficits noted. Infectious Disease Objective - Results Result Diagrams: 09/16/16 06:12 09/16/16 06:12 Recent Labs: Laboratory Last Values WBC 9.6 Th/cmm (4.8-10.8) D 09/16/16 06:12 RBC 3.81 Mil/cmm (3.80-5.10) 09/16/16 06:12 Hgb 11.4 gm/dL (11.7-15.5) L 09/16/16 06:12 Hct 33.0 % (35.0-45.0) L D 09/16/16 06:12 MCV 86.7 fl (81-100) 09/16/16 06:12 MCH 29.9 pg (27.0-31.0) 09/16/16 06:12 MCHC Differential 34.5 pg (28.0-36.0) 09/16/16 06:12 RDW 17.3 % (11.5-20.0) 09/16/16 06:12 Plt Count 214 Th/cmm (150-400) 09/16/16 06:12 MPV 8.5 fl 09/16/16 06:12 Neutrophils % 88.9 % (40.0-80.0) H 09/05/16 05:48 Band Neutrophils % 1 % (0-10) 09/16/16 06:12 Lymphocytes % 9.7 % (20.0-50.0) L 09/05/16 05:48 Monocytes % 1.1 % (2.0-10.0) L 09/05/16 05:48 Eosinophils % 0.2 % (0.0-5.0) 09/05/16 05:48 Basophils % 0.1 % (0.0-2.0) 09/05/16 05:48 Neutrophils (Manual) 92 % (40-80) H 09/16/16 06:12 Lymphocytes 3 % (20-50) L 09/16/16 06:12 Monocytes 3 % (2-10) 09/16/16 06:12 Eosinophils 1 % (0-5) 09/16/16 06:12 Metamyelocytes 2 % (0-0) H 09/14/16 09:35 Platelet Estimate ADEQUATE (NORMAL) 09/16/16 06:12 Platelet Morphology NORMAL (NORMAL) 09/16/16 06:12 RBC Morph Micro Appear NORMAL (NORMAL) 09/16/16 06:12 ESR 29 mm/hr (0-30) 09/14/16 09:35 PT 13.3 SECONDS (9.5-11.5) H 09/12/16 07:19 INR 1.32 (0.5-1.4) 09/12/16 07:19 PTT (Actin FS) 26.5 SECONDS (26.0-38.0) 09/12/16 07:19 Specimen Source Arterial 09/04/16 12:00 Sample Site RB 09/04/16 12:00 pH 7.50 (7.35-7.45) H 09/04/16 12:00 pCO2 46.0 mmHg (35.0-45.0) H 09/04/16 12:00 pO2 67.0 mmHg (80.0-100.0) L 09/04/16 12:00 HCO3 35.9 mmol/L (20.0-26.0) H 09/04/16 12:00 Base Excess 11.3 mmol/L (-3.0-3.0) H 09/04/16 12:00 O2 Saturation 95.0 % (92.0-100.0) 09/04/16 12:00 Tim Test NA 09/04/16 12:00 Vent Rate NA 09/04/16 12:00 Inspired O2 32 09/04/16 12:00 Tidal Volume NA 09/04/16 12:00 PEEP NA 09/04/16 12:00 Pressure (ins/psv/peep) NA 09/04/16 12:00 Critical Value JOANNE 09/04/16 12:00 Sodium 136 mEq/L (136-145) 09/16/16 06:12 Potassium 4.1 mEq/L (3.5-5.1) 09/16/16 06:12 Chloride 104 mEq/L (98-107) 09/16/16 06:12 Carbon Dioxide 31.9 mEq/L (21.0-31.0) H 09/16/16 06:12 Anion Gap 4.2 (7.0-16.0) L 09/16/16 06:12 BUN 11 mg/dL (7-25) 09/16/16 06:12 Creatinine 0.6 mg/dL (0.6-1.2) 09/16/16 06:12 Est GFR ( Amer) > 60.0 ml/min (>90) 09/16/16 06:12 Est GFR (Non-Af Amer) > 60.0 ml/min 09/16/16 06:12 BUN/Creatinine Ratio 18.3 09/16/16 06:12 Glucose 144 mg/dL (70-105) H 09/16/16 06:12 Hemoglobin A1c % 6.0 % (4.0-6.0) 09/07/16 06:50 Plasma/Ser Osmolality 287 mOsmol/kg (280-301) 09/04/16 06:00 Calcium 8.6 mg/dL (8.6-10.3) 09/16/16 06:12 Total Bilirubin 0.4 mg/dL (0.3-1.0) 09/07/16 06:50 AST 19 U/L (13-39) 09/07/16 06:50 ALT 18 U/L (7-52) 09/07/16 06:50 Alkaline Phosphatase 58 U/L (34-104) 09/07/16 06:50 C-Reactive Protein < 0.2 mg/dL (0.0-0.9) 09/14/16 09:35 Total Protein 5.9 gm/dL (6.0-8.3) L 09/07/16 06:50 Albumin 3.3 gm/dL (3.7-5.3) L 09/07/16 06:50 Globulin 2.6 gm/dL 09/07/16 06:50 Albumin/Globulin Ratio 1.3 (1.0-1.8) 09/07/16 06:50 Prealbumin 28 mg/dL (10-36) 09/06/16 10:32 Urine Source CLEAN C 08/30/16 12:00 Urine Color YELLOW 08/30/16 12:00 Urine Clarity SL. CLOUDY (CLEAR) 08/30/16 12:00 Urine pH 5.5 08/30/16 12:00 Ur Specific [place] (1.005-1.030) 08/30/16 12:00 Urine Protein TRACE mg/dL (NEGATIVE) 08/30/16 12:00 Urine Glucose (UA) NEGATIVE mg/dL (NEGATIVE) 08/30/16 12:00 Urine Ketones NEGATIVE mg/dL (NEGATIVE) 08/30/16 12:00 Urine Blood MODERATE (NEGATIVE) H 08/30/16 12:00 Urine Nitrate NEGATIVE (NEGATIVE) 08/30/16 12:00 Urine Bilirubin NEGATIVE (NEGATIVE) 08/30/16 12:00 Urine Urobilinogen 0.2 E.U./dL (0.2 - 1.0) 08/30/16 12:00 Ur Leukocyte Esterase SMALL (NEGATIVE) H 08/30/16 12:00 Urine RBC 3-6 /hpf (0-5) 08/30/16 12:00 Urine WBC 10-25 /hpf (0-5) H 08/30/16 12:00 Ur Epithelial Cells MODERATE /lpf (FEW) 08/30/16 12:00 Urine Bacteria MANY /hpf (NONE SEEN) 08/30/16 12:00 Urine Osmolality 361 mOsmol/kg 09/05/16 17:10 Ur Random Sodium 121 mmol/L 09/05/16 17:10 Ur Random Potassium 14.0 mmol/L 09/05/16 17:10 Fluid Source PLEURAL 09/04/16 15:15 Fluid Color YELLOW 09/04/16 15:15 Fluid Appearance CLEAR 09/04/16 15:15 Fluid pH 8.0 09/04/16 15:15 Fluid WBC 0 /cumm 09/04/16 15:15 Fluid RBC 70 /cumm 09/04/16 15:15 Fluid Glucose 145.0 mg/dL 09/04/16 15:15 Fluid Total Protein 2.1 g/dL 09/04/16 15:15 Fluid LDH 113 U/L 09/04/16 15:15 Fluid Amylase 5 U/L 09/04/16 15:15 Stool Leukocyte NO WBC SEEN 08/31/16 08:10 Gentamicin Peak 6.1 ug/ml (4.0-8.0) 09/09/16 15:00 Gentamicin Trough 0.9 ug/ml (0.2-2.0) 09/13/16 08:15 - Physical Exam Vitals and I&O: Vital Signs Temp 98.2 F 09/16/16 15:00 Pulse 112 09/16/16 16:32 Resp 18 09/16/16 15:01 BP 170/80 09/16/16 16:32 Pulse Ox 97 09/16/16 15:01 Intake & Output 09/15/16 09/16/16 09/16/16 18:59 06:59 18:59 Intake Total 900 600 350 Balance 900 600 350 Intake: Oral 900 600 350 Other: # Voids 5 4 2 # Bowel Movements 1 2 Stool Characteristics Soft Soft Brown Brown Active Medications: Current Medications Acetaminophen (Tylenol) 650 mg PO Q6H PRN PRN Reason: Mild Pain/Headache/T above 101 Stop: 10/28/16 03:52 Last Admin: 09/14/16 00:17 Dose: 650 mg Acetylcysteine (Mucomyst 20%) 5 ml / ( ) HHN BIDRT [facility] Stop: 11/02/16 18:59 Last Admin: 09/16/16 07:01 Dose: 5 ml Al Hydrox/Mg Hydrox/Simethicone (Maalox) 30 ml PO Q6H PRN PRN Reason: Constipation Stop: 10/28/16 03:52 Albuterol/Ipratropium (Duoneb Neb) 3 ml HHN [id number] [facility] Stop: 11/02/16 14:59 Last Admin: 09/16/16 14:58 Dose: 3 ml Artificial Tears (Artificial Tears Ophth Soln) 1 drop EACH EYE BID PRN PRN Reason: Dry Eye Stop: 11/08/16 13:53 Last Admin: 09/16/16 08:18 Dose: 1 drop Budesonide (Pulmicort) 0.5 mg HHN BIDRT [facility] Stop: 11/02/16 18:59 Last Admin: 02/19/17 20:31 Dose: Not Given Dexamethasone Sodium Phosphate (Decadron) 4 mg IVP Q6H [facility] Stop: 11/12/16 09:59 Last Admin: 09/16/16 09:49 Dose: 4 mg Fluconazole (Diflucan) 100 mg PO DAILY [facility] Stop: 09/20/16 08:59 Last Admin: 09/16/16 08:18 Dose: 100 mg Sodium Chloride (Nacl 0.9%) 1,000 mls @ 100 mls/hr IV .Q10H [facility] Stop: 11/07/16 09:14 Last Admin: 09/14/16 10:29 Dose: 100 mls/hr Lorazepam (Ativan) 1 mg PO Q6HR PRN; Protocol PRN Reason: Leg Cramps Stop: 11/12/16 13:05 Last Admin: 09/16/16 16:39 Dose: 1 mg Magnesium Hydroxide (Milk Of Magnesia) 30 ml PO HS PRN PRN Reason: Constipation Stop: 10/28/16 03:52 Meperidine HCl (Demerol) 25 mg IVP Q6H PRN PRN Reason: Severe Pain Stop: 11/12/16 10:23 Last Admin: 09/16/16 11:46 Dose: 25 mg Metoprolol Tartrate (Lopressor) 25 mg PO BID [facility] Stop: 11/09/16 16:59 Last Admin: 09/16/16 16:32 Dose: 25 mg Miscellaneous (Vte Chemical Prophylaxis Screen/ Admission) 1 ea [facility] PRN PRN PRN Reason: PROTOCOL Stop: 10/28/16 10:29 Ondansetron HCl (Zofran) 4 mg IVP Q6H PRN PRN Reason: Nausea / Vomiting Stop: 10/28/16 03:52 Last Admin: 09/10/16 13:05 Dose: 4 mg - Procedures Procedures: Procedures Procedure Code Date ASPIRATE PLEURA W/ IMAGING 37975 08/29/16 BRONCHOSCOPY W/BIOPSY(S) 06982 08/29/16 DRAINAGE OF LEFT MAIN BRONCHUS, ENDO, DIAGN [id number] 08/29/16 DRAINAGE OF LEFT PLEURAL CAVITY, PERCUTANEOUS APPROACH [id number] 08/29/16 EXCISION OF LEFT MAIN BRONCHUS, ENDO, DIAGN [id number] 08/29/16
[2016-09-16] MEDS: Budesonide 0.5 Mg/2 mL Ud HHN SCH (19:33)
[2016-09-17] MEDS: Dexamethasone Sodium Phos 4 mg/mL Vial IVP SCH ×5 (04:18→23:28)
[2016-09-17] MEDS: Meperidine 25 mg/mL 1mL Syr IVP PRN ×3 (04:18→16:23)
--- NOTE | 2016-09-17 04:57 | Progress Notes ---
PROBLEM: Left lung complete occlusion, small cell carcinoma, immunological studies pending. SYMPTOMS: Nil. No specific new symptoms. PHYSICAL EXAMINATION: VITAL SIGNS: Temperature is 98.2, blood pressure is 160/87, respiration ____, saturation is 98% on room air. ASSESSMENT: The patient is clinically stable, placement issue, immunological studies are pending. Discussed with the patient's in length as well as the patient's sample case porter. PLANS AND SUGGESTIONS: We will continue supportive care from this time. JOB# [id number]
[2016-09-17] MEDS: Albuterol/Ipratropium Neb 3 ML AERS HHN SCH ×4 (07:21→19:29)
[2016-09-17 07:22] LABS: HEMATOCRIT 31.7 % (35.0-45.0); HEMOGLOBIN 10.6 gm/dL (11.7-15.5); MEAN CELL VOLUME 88.1 fl (81-100); MEAN CORPUSCULAR HEMOGLOBIN 29.5 pg (27.0-31.0); MEAN CORPUSCULAR HGB CONC 33.5 pg (28.0-36.0); MEAN PLATELET VOLUME 8.6 fl; PLATELET COUNT 179 Th/cmm (150-400); RED CELL DISTRIBUTION WIDTH 18.5 % (11.5-20.0); WHITE BLOOD COUNT 9.5 Th/cmm (4.8-10.8)
[2016-09-17] MEDS: Budesonide 0.5 Mg/2 mL Ud HHN SCH ×2 (07:22→19:29)
[2016-09-17 07:39] LABS: ANION GAP 9.5 (7.0-16.0); BUN - UREA NITROGEN 10 mg/dL (7-25); BUN/CREATININE RATIO 16.7; CALCIUM SERUM 8.2 mg/dL (8.6-10.3); CARBON DIOXIDE 28.4 mEq/L (21.0-31.0); CHLORIDE 105 mEq/L (98-107); CREATININE - SERUM 0.6 mg/dL (0.6-1.2); GLUCOSE 144 mg/dL (70-105); POTASSIUM SERUM 3.9 mEq/L (3.5-5.1); SODIUM SERUM 139 mEq/L (136-145)
[2016-09-17] MEDS: Polyvinyl Alcohol Ophth Soln 15 mL Bottle EACH EYE PRN (08:23)
[2016-09-17 08:27] LABS: ANISOCYTOSIS 1+; BAND NEUTROPHILE 3 % (0-10); NEUTROPHILS 90 % (40-80); PLATELET ESTIMATE ADEQUATE (NORMAL); PLATELET MORPHOLOGY NORMAL (NORMAL); TOTAL CELLS COUNTED 100
--- NOTE | 2016-09-17 12:48 | Progress Notes ---
SUBJECTIVE: The patient is awake, alert. The patient is on oxygen nasal cannula. The patient is on IV steroids. The patient is ____. The patient is on IV fluids. OBJECTIVE: VITAL SIGNS: Temperature 98.2, pulse 112, BP per nursing respiratory rate 18, O2 saturation 97% on oxygen nasal cannula. CARDIOVASCULAR: S1, S2. RESPIRATORY: Few rales. GASTROINTESTINAL: Soft, positive bowel sounds. Labs on the patient, hematology, WBC 9.6, hemoglobin 9.4, hematocrit 33.0, platelet count of 214, 90% neutrophils, 3% lymphocytes. Chemistry, sodium 136, potassium per labs, chloride per labs, bicarbonate 31, anion gap 4, BUN 11, creatinine 0.6, GFR is 160, glucose 144, calcium 8.6. MICROBIOLOGY: No new microbiology results. 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 ASSESSMENT: 1. Anemia. 2. Hyperglycemia. 3. Sepsis (resolved) 4. Pancolitis (treated). 5. Pneumonia (treated). 6. Pleural effusion. 7. Hypertension. 8. Syncope secondary to dehydration (resolved). 9. History of cerebrovascular accident. 10. Status post bowel resection. 11. History of tobacco abuse. 12. 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 13. Small cell undifferentiated carcinoma of lung. 14. Deconditioning/debility. PLAN: Continue current medication and treatment. Continue labs in a.m. Further recommendations per consult. information security manager will arrange for transfer to [facility]. Further consults. JOB# [id number] [facility]
[2016-09-17] MEDS: Sodium Chloride 0.9% 1,000 ML IV SCH (14:31)
--- NOTE | 2016-09-18 00:16 | Progress Notes ---
PROBLEM LIST: Small cell carcinoma occluding the left main bronchus with effusion, also possibly mets to the brain. SYMPTOMS: ____, does not offer any specific new symptoms. PHYSICAL EXAMINATION: VITAL SIGNS: Temperature is 97.2, blood pressure is 157/58 saturation is 97% on supplemental oxygen 2 liters per minute. ENT: Shows no acute changes. CHEST: Shows diminished air entry in the left side. HEART: Regular. ABDOMEN: Soft, nontender. LABORATORY DATA: White count is 9.5. Electrolytes are okay and sugar is 144. ASSESSMENT: The patient is clinically stable from respiratory standpoint ____ with problems described as above, need to have aggressive chemo and/or possible radiation, awaiting for transfer to [facility] and go from there. JOB# [id number]
[2016-09-18] MEDS: Meperidine 25 mg/mL 1mL Syr IVP PRN ×3 (06:19→23:54)
[2016-09-18] MEDS: Dexamethasone Sodium Phos 4 mg/mL Vial IVP SCH ×4 (06:22→22:06)
[2016-09-18 06:59] LABS: HEMATOCRIT 31.7 % (35.0-45.0); HEMOGLOBIN 10.9 gm/dL (11.7-15.5); MEAN CELL VOLUME 87.6 fl (81-100); MEAN CORPUSCULAR HEMOGLOBIN 30.2 pg (27.0-31.0); MEAN CORPUSCULAR HGB CONC 34.5 pg (28.0-36.0); PLATELET COUNT 173 Th/cmm (150-400); RED BLOOD COUNT 3.61 Mil/cmm (3.80-5.10); RED CELL DISTRIBUTION WIDTH 18.5 % (11.5-20.0); WHITE BLOOD COUNT 10.2 Th/cmm (4.8-10.8)
[2016-09-18] MEDS: Albuterol/Ipratropium Neb 3 ML AERS HHN SCH ×4 (07:12→19:43)
[2016-09-18] MEDS: Budesonide 0.5 Mg/2 mL Ud HHN SCH ×2 (07:15→19:43)
[2016-09-18 07:41] LABS: BAND NEUTROPHILE 3 % (0-10); BUN - UREA NITROGEN 12 mg/dL (7-25); CALCIUM SERUM 8.7 mg/dL (8.6-10.3); CARBON DIOXIDE 27.7 mEq/L (21.0-31.0); CHLORIDE 108 mEq/L (98-107); CREATININE - SERUM 0.6 mg/dL (0.6-1.2); GLUCOSE 119 mg/dL (70-105); NEUTROPHILS 89 % (40-80); POTASSIUM SERUM 3.7 mEq/L (3.5-5.1); SODIUM SERUM 139 mEq/L (136-145); TOTAL CELLS COUNTED 100
[2016-09-18 07:42] LABS: PLATELET ESTIMATE ADEQUATE (NORMAL); PLATELET MORPHOLOGY NORMAL (NORMAL)
--- NOTE | 2016-09-18 18:00 | Infectious Disease Prog Note ---
Infectious Disease Subjective - Review of Systems Service Date: 09/18/16 Subjective: cc colitis/oral candisda hpi- pt wlung bx small cell ca. wbc normal now o/e vss chets claer abd soft less tender dx oral gabbi diverticuliutios plan diflucan Physical Exam: General: Alert and Oriented x3, No Acute Distress HEENT: oral gabbi EOMI Bilaterally, PERRLA Bilaterally, Head is normocephalic, atraumatic on inspection.oral gabbi Cardio: +S1/S2 Auscultated, RRR, no murmurs/rubs/gallops noted Respiratory: Clear to Auscultate Bilaterally Abdominal: Soft, Nondistended, tender to palpation x 4 quadrants Genital/Urinary: Extremities: No Edema noted in the lower extremities Neurological: Cranial Nerves II-XII intact bilaterally, Gait Steady, No Focal Deficits noted. Infectious Disease Objective - Results Result Diagrams: 09/18/16 06:20 09/18/16 06:20 Recent Labs: Laboratory Last Values WBC 10.2 Th/cmm (4.8-10.8) 09/18/16 06:20 RBC 3.61 Mil/cmm (3.80-5.10) L 09/18/16 06:20 Hgb 10.9 gm/dL (11.7-15.5) L 09/18/16 06:20 Hct 31.7 % (35.0-45.0) L 09/18/16 06:20 MCV 87.6 fl (81-100) 09/18/16 06:20 MCH 30.2 pg (27.0-31.0) 09/18/16 06:20 MCHC Differential 34.5 pg (28.0-36.0) 09/18/16 06:20 RDW 18.5 % (11.5-20.0) 09/18/16 06:20 Plt Count 173 Th/cmm (150-400) 09/18/16 06:20 MPV 8.0 fl 09/18/16 06:20 Neutrophils % 88.9 % (40.0-80.0) H 09/05/16 05:48 Band Neutrophils % 3 % (0-10) 09/18/16 06:20 Lymphocytes % 9.7 % (20.0-50.0) L 09/05/16 05:48 Monocytes % 1.1 % (2.0-10.0) L 09/05/16 05:48 Eosinophils % 0.2 % (0.0-5.0) 09/05/16 05:48 Basophils % 0.1 % (0.0-2.0) 09/05/16 05:48 Neutrophils (Manual) 89 % (40-80) H 09/18/16 06:20 Lymphocytes 6 % (20-50) L 09/18/16 06:20 Monocytes 2 % (2-10) 09/18/16 06:20 Eosinophils 1 % (0-5) 09/16/16 06:12 Metamyelocytes 2 % (0-0) H 09/14/16 09:35 Platelet Estimate ADEQUATE (NORMAL) 09/18/16 06:20 Platelet Morphology NORMAL (NORMAL) 09/18/16 06:20 Anisocytosis 1+ 09/17/16 06:38 RBC Morph Micro Appear NORMAL (NORMAL) 09/18/16 06:20 ESR 29 mm/hr (0-30) 09/14/16 09:35 PT 13.3 SECONDS (9.5-11.5) H 09/12/16 07:19 INR 1.32 (0.5-1.4) 09/12/16 07:19 PTT (Actin FS) 26.5 SECONDS (26.0-38.0) 09/12/16 07:19 Specimen Source Arterial 09/04/16 12:00 Sample Site RB 09/04/16 12:00 pH 7.50 (7.35-7.45) H 09/04/16 12:00 pCO2 46.0 mmHg (35.0-45.0) H 09/04/16 12:00 pO2 67.0 mmHg (80.0-100.0) L 09/04/16 12:00 HCO3 35.9 mmol/L (20.0-26.0) H 09/04/16 12:00 Base Excess 11.3 mmol/L (-3.0-3.0) H 09/04/16 12:00 O2 Saturation 95.0 % (92.0-100.0) 09/04/16 12:00 Tim Test NA 09/04/16 12:00 Vent Rate NA 09/04/16 12:00 Inspired O2 32 09/04/16 12:00 Tidal Volume NA 09/04/16 12:00 PEEP NA 09/04/16 12:00 Pressure (ins/psv/peep) NA 09/04/16 12:00 Critical Value JOANNE 09/04/16 12:00 Sodium 139 mEq/L (136-145) 09/18/16 06:20 Potassium 3.7 mEq/L (3.5-5.1) 09/18/16 06:20 Chloride 108 mEq/L (98-107) H 09/18/16 06:20 Carbon Dioxide 27.7 mEq/L (21.0-31.0) 09/18/16 06:20 Anion Gap 7.0 (7.0-16.0) 09/18/16 06:20 BUN 12 mg/dL (7-25) 09/18/16 06:20 Creatinine 0.6 mg/dL (0.6-1.2) 09/18/16 06:20 Est GFR ( Amer) > 60.0 ml/min (>90) 09/18/16 06:20 Est GFR (Non-Af Amer) > 60.0 ml/min 09/18/16 06:20 BUN/Creatinine Ratio 20.0 09/18/16 06:20 Glucose 119 mg/dL (70-105) H 09/18/16 06:20 Hemoglobin A1c % 6.0 % (4.0-6.0) 09/07/16 06:50 Plasma/Ser Osmolality 287 mOsmol/kg (280-301) 09/04/16 06:00 Calcium 8.7 mg/dL (8.6-10.3) 09/18/16 06:20 Total Bilirubin 0.4 mg/dL (0.3-1.0) 09/07/16 06:50 AST 19 U/L (13-39) 09/07/16 06:50 ALT 18 U/L (7-52) 09/07/16 06:50 Alkaline Phosphatase 58 U/L (34-104) 09/07/16 06:50 C-Reactive Protein < 0.2 mg/dL (0.0-0.9) 09/14/16 09:35 Total Protein 5.9 gm/dL (6.0-8.3) L 09/07/16 06:50 Albumin 3.3 gm/dL (3.7-5.3) L 09/07/16 06:50 Globulin 2.6 gm/dL 09/07/16 06:50 Albumin/Globulin Ratio 1.3 (1.0-1.8) 09/07/16 06:50 Prealbumin 28 mg/dL (10-36) 09/06/16 10:32 Urine Source CLEAN C 08/30/16 12:00 Urine Color YELLOW 08/30/16 12:00 Urine Clarity SL. CLOUDY (CLEAR) 08/30/16 12:00 Urine pH 5.5 08/30/16 12:00 Ur Specific [place] (1.005-1.030) 08/30/16 12:00 Urine Protein TRACE mg/dL (NEGATIVE) 08/30/16 12:00 Urine Glucose (UA) NEGATIVE mg/dL (NEGATIVE) 08/30/16 12:00 Urine Ketones NEGATIVE mg/dL (NEGATIVE) 08/30/16 12:00 Urine Blood MODERATE (NEGATIVE) H 08/30/16 12:00 Urine Nitrate NEGATIVE (NEGATIVE) 08/30/16 12:00 Urine Bilirubin NEGATIVE (NEGATIVE) 08/30/16 12:00 Urine Urobilinogen 0.2 E.U./dL (0.2 - 1.0) 08/30/16 12:00 Ur Leukocyte Esterase SMALL (NEGATIVE) H 08/30/16 12:00 Urine RBC 3-6 /hpf (0-5) 08/30/16 12:00 Urine WBC 10-25 /hpf (0-5) H 08/30/16 12:00 Ur Epithelial Cells MODERATE /lpf (FEW) 08/30/16 12:00 Urine Bacteria MANY /hpf (NONE SEEN) 08/30/16 12:00 Urine Osmolality 361 mOsmol/kg 09/05/16 17:10 Ur Random Sodium 121 mmol/L 09/05/16 17:10 Ur Random Potassium 14.0 mmol/L 09/05/16 17:10 Fluid Source PLEURAL 09/04/16 15:15 Fluid Color YELLOW 09/04/16 15:15 Fluid Appearance CLEAR 09/04/16 15:15 Fluid pH 8.0 09/04/16 15:15 Fluid WBC 0 /cumm 09/04/16 15:15 Fluid RBC 70 /cumm 09/04/16 15:15 Fluid Glucose 145.0 mg/dL 09/04/16 15:15 Fluid Total Protein 2.1 g/dL 09/04/16 15:15 Fluid LDH 113 U/L 09/04/16 15:15 Fluid Amylase 5 U/L 09/04/16 15:15 Stool Leukocyte NO WBC SEEN 08/31/16 08:10 Gentamicin Peak 6.1 ug/ml (4.0-8.0) 09/09/16 15:00 Gentamicin Trough 0.9 ug/ml (0.2-2.0) 09/13/16 08:15 - Physical Exam Vitals and I&O: Vital Signs Temp 98.2 F 09/18/16 16:07 Pulse 84 09/18/16 17:08 Resp 18 09/18/16 16:07 BP 146/71 09/18/16 17:08 Pulse Ox 97 09/18/16 16:07 Intake & Output 09/17/16 09/18/16 09/18/16 18:59 06:59 18:59 Intake Total 350 Balance 350 Intake: Oral 350 Other: # Voids 2 # Bowel Movements 1 Active Medications: Current Medications Acetaminophen (Tylenol) 650 mg PO Q6H PRN PRN Reason: Mild Pain/Headache/T above 101 Stop: 10/28/16 03:52 Last Admin: 09/14/16 00:17 Dose: 650 mg Acetylcysteine (Mucomyst 20%) 5 ml / ( ) HHN BIDRT [facility] Stop: 11/02/16 18:59 Last Admin: 09/18/16 07:17 Dose: 5 ml Al Hydrox/Mg Hydrox/Simethicone (Maalox) 30 ml PO Q6H PRN PRN Reason: Constipation Stop: 10/28/16 03:52 Albuterol/Ipratropium (Duoneb Neb) 3 ml HHN [id number] [facility] Stop: 11/02/16 14:59 Last Admin: 09/18/16 15:51 Dose: 3 ml Artificial Tears (Artificial Tears Ophth Soln) 1 drop EACH EYE BID PRN PRN Reason: Dry Eye Stop: 11/08/16 13:53 Last Admin: 09/17/16 08:23 Dose: 1 drop Budesonide (Pulmicort) 0.5 mg HHN BIDRT [facility] Stop: 11/02/16 18:59 Last Admin: 09/18/16 07:15 Dose: 0.5 mg Dexamethasone Sodium Phosphate (Decadron) 4 mg IVP Q6H [facility] Stop: 11/12/16 09:59 Last Admin: 09/18/16 17:09 Dose: 4 mg Fluconazole (Diflucan) 100 mg PO DAILY [facility] Stop: 09/20/16 08:59 Last Admin: 09/18/16 09:13 Dose: 100 mg Sodium Chloride (Nacl 0.9%) 1,000 mls @ 100 mls/hr IV .Q10H [facility] Stop: 11/07/16 09:14 Last Admin: 09/17/16 14:31 Dose: 100 mls/hr Lorazepam (Ativan) 1 mg PO Q6HR PRN; Protocol PRN Reason: Leg Cramps Stop: 11/12/16 13:05 Last Admin: 09/18/16 09:14 Dose: 1 mg Magnesium Hydroxide (Milk Of Magnesia) 30 ml PO HS PRN PRN Reason: Constipation Stop: 10/28/16 03:52 Meperidine HCl (Demerol) 25 mg IVP Q6H PRN PRN Reason: Severe Pain Stop: 11/12/16 10:23 Last Admin: 09/18/16 17:09 Dose: 25 mg Metoprolol Tartrate (Lopressor) 25 mg PO BID [facility] Stop: 11/09/16 16:59 Last Admin: 09/18/16 17:08 Dose: 25 mg Miscellaneous (Vte Chemical Prophylaxis Screen/ Admission) 1 ea [facility] PRN PRN PRN Reason: PROTOCOL Stop: 10/28/16 10:29 Ondansetron HCl (Zofran) 4 mg IVP Q6H PRN PRN Reason: Nausea / Vomiting Stop: 10/28/16 03:52 Last Admin: 09/10/16 13:05 Dose: 4 mg - Procedures Procedures: Procedures Procedure Code Date ASPIRATE PLEURA W/ IMAGING 82452 08/29/16 BRONCHOSCOPY W/BIOPSY(S) 03240 08/29/16 DRAINAGE OF LEFT MAIN BRONCHUS, ENDO, DIAGN [id number] 08/29/16 DRAINAGE OF LEFT PLEURAL CAVITY, PERCUTANEOUS APPROACH [id number] 08/29/16 EXCISION OF LEFT MAIN BRONCHUS, ENDO, DIAGN [id number] 08/29/16
--- NOTE | 2016-09-18 20:04 | Transfer Summary ---
TRANSFER DIAGNOSES: 1. Sepsis (resolved). 2. Pancolitis (treated). 3. Pneumonia (treated). 4. Hypertension. 5. History of cerebrovascular accident. 6. Status post bowel resection. 7. History of tobacco abuse. 8. 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 10. Debility. HOSPITAL COURSE: The patient is a 66-year-old female who was initially transferred from [facility] to [facility]. The patient was admitted with a diagnosis of abdominal pain, nausea, vomiting, diarrhea, possible colitis and hypertension and syncopal episode secondary to dehydration and prerenal azotemia. Infectious Disease consultation obtained from Dr. Lorenzo Whitley, who placed the patient on empiric coverage with Flagyl and Cipro. The patient was ordered for vincent cultures. GI consultation was obtained from Dr. Huff, who recommended patient for antibiotics along with possible eventual colonoscopy once the C. diff. colitis has been treated. Then Cardiology consultation from Dr. Sissy Snyder. The patient on 09/03/2016, had shortness of breath and showed left hemothorax with complete opacification due to lung collapse, pleural effusion and possible superimposed pneumonia. CT of the chest was ordered on 09/03/2016, which showed large abnormal soft tissue density along the left hilar region along the mediastinum. Also there was obliteration of the left main stem bronchus. The findings represented of possible neoplastic process, probably bronchogenic lung cancer. As such, Hematology consultation obtained from Dr. Merino, who recommended bronchoscopy with biopsy and also MRI of the brain to rule out brain mets. Pulmonary consultation was obtained from Dr. Scooby Whitley. CT head performed on 09/04/2016, showed numerous metastatic mass lesion throughout the cerebrum and cerebellum noted in the elia 20% extensive metastatic disease. The patient was also started IV steroids by Hematology/Oncology. Thoracentesis was done on 09/04/2016, which was unremarkable due to insufficient volume for cytology studies. Brain MRI was done on 09/11/2016. Brain MRI showed diffuse metastatic disease again noted throughout supratentorial, infratentorial regions with areas of vasogenic edema, multifocal scattered areas on restricted diffusion are noted, which show brain metastasis. Pathology report from the bronchoscopy showed poorly differentiated malignant neoplasm. Immunological study was ordered and reports from the immunological study showed small cell and differentiated carcinoma. 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 [facility]# [id number] MTDPepe
[2016-09-18] MEDS: Sodium Chloride 0.9% 1,000 ML IV SCH (22:05)
--- NOTE | 2016-09-18 22:21 | Progress Notes ---
PULMONARY PROGRESS NOTE PROBLEM LIST: 1. Small cell carcinoma obstructing the left lung. 2. Effusion. 3. Possibly metastasis. 4. Possibly paraneoplastic syndrome. SYMPTOMS: Nil. No specific new symptoms. PHYSICAL EXAMINATION: VITAL SIGNS: Temperature 98, respirations 18, saturation is 97% on supplemental oxygen. ENT: Shows no new changes. CHEST: Shows diminished air entry on right side, otherwise unremarkable. HEART: Regular. ABDOMEN: Soft, nontender. LABORATORY DATA: Electrolytes are okay. White count is 10.2. ASSESSMENT: The patient is clinically optimally stable. PLANS AND SUGGESTIONS: Planning to await for ____ at [facility], continue supportive care and go from there. JOB# [id number]
--- NOTE | 2016-09-18 23:21 | Progress Notes ---
PULMONARY PROGRESS NOTE PROBLEM LIST: 1. Acute on chronic respiratory failure. 2. Mild degree of pulmonary fibrosis, bilaterally. 3. History of previous drug abuse. 4. History of ____. 5. History of CVA. SYMPTOMS: Nil. She is not giving problems to anybody. No specific new symptoms. PHYSICAL EXAMINATION: VITAL SIGNS: Temperature is 98.2, saturation 97% on supplemental oxygen ____. ENT: Shows no new changes. CHEST: Shows diminished air entry without any other adventitious breath sounds. HEART: Regular. EXTREMITIES: Shows no peripheral edema. ASSESSMENT: The patient is clinically optimally stable. PLANS AND SUGGESTIONS: We will go ahead and continue current treatment and go from there. JOB# [id number]
[2016-09-19] MEDS: Dexamethasone Sodium Phos 4 mg/mL Vial IVP SCH ×3 (04:20→16:58)
[2016-09-19] MEDS: Meperidine 25 mg/mL 1mL Syr IVP PRN ×2 (05:52→12:17)
[2016-09-19 07:03] LABS: ANION GAP 10.2 (7.0-16.0); BUN - UREA NITROGEN 13 mg/dL (7-25); BUN/CREATININE RATIO 21.7; CARBON DIOXIDE 28.3 mEq/L (21.0-31.0); CHLORIDE 105 mEq/L (98-107); CREATININE - SERUM 0.6 mg/dL (0.6-1.2); GLUCOSE 151 mg/dL (70-105); POTASSIUM SERUM 3.5 mEq/L (3.5-5.1); SODIUM SERUM 140 mEq/L (136-145)
[2016-09-19 07:10] LABS: HEMOGLOBIN 12.4 gm/dL (11.7-15.5)
[2016-09-19] MEDS: Albuterol/Ipratropium Neb 3 ML AERS HHN SCH ×4 (07:13→19:19)
[2016-09-19] MEDS: Budesonide 0.5 Mg/2 mL Ud HHN SCH ×2 (07:17→19:19)
[2016-09-19 07:30] LABS: HEMATOCRIT 37.2 % (35.0-45.0); MEAN CELL VOLUME 87.7 fl (81-100); MEAN CORPUSCULAR HEMOGLOBIN 29.2 pg (27.0-31.0); MEAN CORPUSCULAR HGB CONC 33.4 pg (28.0-36.0); MEAN PLATELET VOLUME 9.3 fl; PLATELET COUNT 150 Th/cmm (150-400); RED BLOOD COUNT 4.24 Mil/cmm (3.80-5.10); RED CELL DISTRIBUTION WIDTH 18.7 % (11.5-20.0); WHITE BLOOD COUNT 11.8 Th/cmm (4.8-10.8)
--- NOTE | 2016-09-19 07:34 | Progress Notes ---
SUBJECTIVE: The patient is asleep. The patient is on oxygen via nasal cannula. The patient is on IV steroids. The patient is on antifungal medications. The patient is on IV fluids. OBJECTIVE: VITAL SIGNS: Temperature 98.2, pulse 84, blood pressure 146/71, respirations 18, and O2 sat per nursing. CARDIOVASCULAR: S1 and S2. RESPIRATORY: Rales. GASTROINTESTINAL: Soft. Positive bowel sounds. LABORATORY DATA: Hematology: WBC 7.2, hemoglobin 10.9, hematocrit 31.7, platelet count of 173,000, 89% neutrophils, and 6% lymphocytes. Chemistry: Sodium 139, potassium 3.7, chloride 108, bicarb per labs, anion gap 7, BUN 12, and creatinine 0.6. GFR is more than 60. Glucose is 119. Calcium is 8.7. MICROBIOLOGY: No new microbiology results. ASSESSMENT: 1. Sepsis (resolved). 2. Pancolitis (treated). 3. Pneumonia (treated). 4. Pleural effusion. 5. Hypertension. 6. Syncope secondary to dehydration (resolved). 8. History of cerebrovascular accident. 9. Status post bowel resection. 10. History of tobaccos use. 11. 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 12. 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 13. Debility. 14. Anemia. 15. Hyperglycemia. PLAN: Continue current medication and treatment. Obtain labs in a.m. associate account manager will arrange for transfer to tertiary facility. JOB# [id number] MTDD
[2016-09-19 09:06] LABS: ANISOCYTOSIS 1+; BAND NEUTROPHILE 2 % (0-10); NEUTROPHILS 93 % (40-80); PLATELET ESTIMATE ADEQUATE (NORMAL); PLATELET MORPHOLOGY PLATELET CLUMPS SEEN (NORMAL); TOTAL CELLS COUNTED 100
[2016-09-19] MEDS: Sodium Chloride 0.9% 1,000 ML IV SCH ×2 (09:11→18:23)
[2016-09-20] MEDS: Meperidine 25 mg/mL 1mL Syr IVP PRN ×3 (00:02→11:24)
[2016-09-20] MEDS: Dexamethasone Sodium Phos 4 mg/mL Vial IVP SCH ×3 (00:27→09:08)
--- NOTE | 2016-09-20 02:18 | Progress Notes ---
PROBLEM LIST: Small cell carcinoma with completed ____sunk with possibly mets to the brain. SYMPTOMS: Nil. No specific new symptoms. Unfortunately, awaiting for the transfer to [facility]. PHYSICAL EXAMINATION: VITAL SIGNS: Temperature is 97.8, BP is stable. CHEST: Shows diminished air entry. No other adventitious breath sounds. HEART: Regular. LABORATORY DATA: White count is 13,000. ABG, pO2 is 54 on room air and sodium is 153. ____ White count is okay. ASSESSMENT AND PLAN: The patient is clinically stable with small cell carcinoma, awaiting for transfer to the [facility]. Continue supportive care. JOB# [id number]
--- NOTE | 2016-09-20 06:49 | Progress Notes ---
SUBJECTIVE: The patient is asleep. The patient is on oxygen via nasal cannula. The patient is on inpatient neb treatment. The patient is on IV steroids. The patient is on IV fluids. The patient is on antifungal medications. The patient will be transferred to [facility]. OBJECTIVE: VITAL SIGNS: Temperature is 96.8, pulse 74, blood pressure 153/74, respiratory rate 18, O2 saturation was 98% on oxygen nasal cannula. CARDIOVASCULAR: S1 and S2. RESPIRATORY: Rales. ABDOMEN: Soft. Positive bowel sounds. LABORATORY DATA: Hematology, WBC was 11.8, hemoglobin 12.4, hematocrit 37.2, platelet count 150, 93% neutrophils, 4% lymphocyte, 1% eosinophils. Chemistry: Sodium 140, potassium 3.5, chloride 105, bicarbonate 28, anion gap 10, BUN 13, creatinine 0.6, GFR more than 60. Glucose is 151, calcium 9.0. MICROBIOLOGY DATA: No new microbiology results. RADIOLOGY: No new results. ASSESSMENT: 1. Sepsis (resolved). 2. Pancolitis (treated). 3. Pneumonia (treated). 4. Pleural effusion. 5. Hypertension. 6. Syncope secondary to dehydration (resolved). 7. History of cerebrovascular accident. 8. Post-bowel resection. 9. History of tobacco abuse. 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 11. 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 12. Decreased debility. 13. Leukocytosis. 14. Hyperglycemia. PLAN: Continue current medications and treatment. Continue inpatient nebulizer treatment. Continue inpatient rehab therapy. Awaiting transfer to tertiary facility. Further recommendations per consults. automotive quality manager will arrange transfer to tertiary facility. JOB# [id number]
[2016-09-20] MEDS: Albuterol/Ipratropium Neb 3 ML AERS HHN SCH (07:06)
[2016-09-20] MEDS: Budesonide 0.5 Mg/2 mL Ud HHN SCH (07:06)
[2016-09-20 07:07] LABS: HEMATOCRIT 35.8 % (35.0-45.0); HEMOGLOBIN 12.3 gm/dL (11.7-15.5); MEAN CELL VOLUME 88.5 fl (81-100); MEAN CORPUSCULAR HEMOGLOBIN 30.3 pg (27.0-31.0); MEAN CORPUSCULAR HGB CONC 34.3 pg (28.0-36.0); MEAN PLATELET VOLUME 8.5 fl; PLATELET COUNT 142 Th/cmm (150-400); RED BLOOD COUNT 4.04 Mil/cmm (3.80-5.10); RED CELL DISTRIBUTION WIDTH 18.4 % (11.5-20.0); WHITE BLOOD COUNT 10.5 Th/cmm (4.8-10.8)
[2016-09-20 07:19] LABS: ANION GAP 11.4 (7.0-16.0); BUN - UREA NITROGEN 12 mg/dL (7-25); CALCIUM SERUM 8.7 mg/dL (8.6-10.3); CARBON DIOXIDE 28.4 mEq/L (21.0-31.0); CHLORIDE 104 mEq/L (98-107); CREATININE - SERUM 0.6 mg/dL (0.6-1.2); GLUCOSE 150 mg/dL (70-105); POTASSIUM SERUM 3.8 mEq/L (3.5-5.1); SODIUM SERUM 140 mEq/L (136-145)
[2016-09-20 07:35] LABS: ANISOCYTOSIS 1+; BAND NEUTROPHILE 1 % (0-10); NEUTROPHILS 96 % (40-80); PLATELET ESTIMATE ADEQUATE (NORMAL); PLATELET MORPHOLOGY NORMAL (NORMAL); TOTAL CELLS COUNTED 100
--- NOTE | 2016-09-20 18:04 | Infectious Disease Prog Note ---
Infectious Disease Subjective - Review of Systems Service Date: 09/20/16 Subjective: cc colitis/oral candisda hpi- pt wlung bx small cell ca. wbc normal now schedule for discahrge o/e vss chets claer abd soft less tender dx oral gabbi diverticuliutios plan diflucan discontinue Physical Exam: General: Alert and Oriented x3, No Acute Distress HEENT: oral gabbi EOMI Bilaterally, PERRLA Bilaterally, Head is normocephalic, atraumatic on inspection.oral gabbi Cardio: +S1/S2 Auscultated, RRR, no murmurs/rubs/gallops noted Respiratory: Clear to Auscultate Bilaterally Abdominal: Soft, Nondistended, tender to palpation x 4 quadrants Genital/Urinary: Extremities: No Edema noted in the lower extremities Neurological: Cranial Nerves II-XII intact bilaterally, Gait Steady, No Focal Deficits noted. Infectious Disease Objective - Results Result Diagrams: 09/20/16 06:00 09/20/16 06:00 Recent Labs: Laboratory Last Values WBC 10.5 Th/cmm (4.8-10.8) 09/20/16 06:00 RBC 4.04 Mil/cmm (3.80-5.10) 09/20/16 06:00 Hgb 12.3 gm/dL (11.7-15.5) 09/20/16 06:00 Hct 35.8 % (35.0-45.0) 09/20/16 06:00 MCV 88.5 fl (81-100) 09/20/16 06:00 MCH 30.3 pg (27.0-31.0) 09/20/16 06:00 MCHC Differential 34.3 pg (28.0-36.0) 09/20/16 06:00 RDW 18.4 % (11.5-20.0) 09/20/16 06:00 Plt Count 142 Th/cmm (150-400) L 09/20/16 06:00 MPV 8.5 fl 09/20/16 06:00 Neutrophils % 88.9 % (40.0-80.0) H 09/05/16 05:48 Band Neutrophils % 1 % (0-10) 09/20/16 06:00 Lymphocytes % 9.7 % (20.0-50.0) L 09/05/16 05:48 Monocytes % 1.1 % (2.0-10.0) L 09/05/16 05:48 Eosinophils % 0.2 % (0.0-5.0) 09/05/16 05:48 Basophils % 0.1 % (0.0-2.0) 09/05/16 05:48 Neutrophils (Manual) 96 % (40-80) H 09/20/16 06:00 Lymphocytes 2 % (20-50) L 09/20/16 06:00 Monocytes 1 % (2-10) L 09/20/16 06:00 Eosinophils 1 % (0-5) 09/16/16 06:12 Metamyelocytes 2 % (0-0) H 09/14/16 09:35 Platelet Estimate ADEQUATE (NORMAL) 09/20/16 06:00 Platelet Morphology NORMAL (NORMAL) 09/20/16 06:00 Anisocytosis 1+ 09/20/16 06:00 RBC Morph Micro Appear ABNORMAL (NORMAL) 09/20/16 06:00 ESR 29 mm/hr (0-30) 09/14/16 09:35 PT 13.3 SECONDS (9.5-11.5) H 09/12/16 07:19 INR 1.32 (0.5-1.4) 09/12/16 07:19 PTT (Actin FS) 26.5 SECONDS (26.0-38.0) 09/12/16 07:19 Specimen Source Arterial 09/04/16 12:00 Sample Site RB 09/04/16 12:00 pH 7.50 (7.35-7.45) H 09/04/16 12:00 pCO2 46.0 mmHg (35.0-45.0) H 09/04/16 12:00 pO2 67.0 mmHg (80.0-100.0) L 09/04/16 12:00 HCO3 35.9 mmol/L (20.0-26.0) H 09/04/16 12:00 Base Excess 11.3 mmol/L (-3.0-3.0) H 09/04/16 12:00 O2 Saturation 95.0 % (92.0-100.0) 09/04/16 12:00 Tim Test NA 09/04/16 12:00 Vent Rate NA 09/04/16 12:00 Inspired O2 32 09/04/16 12:00 Tidal Volume NA 09/04/16 12:00 PEEP NA 09/04/16 12:00 Pressure (ins/psv/peep) NA 09/04/16 12:00 Critical Value OSMANIO 09/04/16 12:00 Sodium 140 mEq/L (136-145) 09/20/16 06:00 Potassium 3.8 mEq/L (3.5-5.1) 09/20/16 06:00 Chloride 104 mEq/L (98-107) 09/20/16 06:00 Carbon Dioxide 28.4 mEq/L (21.0-31.0) 09/20/16 06:00 Anion Gap 11.4 (7.0-16.0) 09/20/16 06:00 BUN 12 mg/dL (7-25) 09/20/16 06:00 Creatinine 0.6 mg/dL (0.6-1.2) 09/20/16 06:00 Est GFR ( Amer) > 60.0 ml/min (>90) 09/20/16 06:00 Est GFR (Non-Af Amer) > 60.0 ml/min 09/20/16 06:00 BUN/Creatinine Ratio 20.0 09/20/16 06:00 Glucose 150 mg/dL (70-105) H 09/20/16 06:00 Hemoglobin A1c % 6.0 % (4.0-6.0) 09/07/16 06:50 Plasma/Ser Osmolality 287 mOsmol/kg (280-301) 09/04/16 06:00 Calcium 8.7 mg/dL (8.6-10.3) 09/20/16 06:00 Total Bilirubin 0.4 mg/dL (0.3-1.0) 09/07/16 06:50 AST 19 U/L (13-39) 09/07/16 06:50 ALT 18 U/L (7-52) 09/07/16 06:50 Alkaline Phosphatase 58 U/L (34-104) 09/07/16 06:50 C-Reactive Protein < 0.2 mg/dL (0.0-0.9) 09/14/16 09:35 Total Protein 5.9 gm/dL (6.0-8.3) L 09/07/16 06:50 Albumin 3.3 gm/dL (3.7-5.3) L 09/07/16 06:50 Globulin 2.6 gm/dL 09/07/16 06:50 Albumin/Globulin Ratio 1.3 (1.0-1.8) 09/07/16 06:50 Prealbumin 28 mg/dL (10-36) 09/06/16 10:32 Urine Source CLEAN C 08/30/16 12:00 Urine Color YELLOW 08/30/16 12:00 Urine Clarity SL. CLOUDY (CLEAR) 08/30/16 12:00 Urine pH 5.5 08/30/16 12:00 Ur Specific [place] (1.005-1.030) 08/30/16 12:00 Urine Protein TRACE mg/dL (NEGATIVE) 08/30/16 12:00 Urine Glucose (UA) NEGATIVE mg/dL (NEGATIVE) 08/30/16 12:00 Urine Ketones NEGATIVE mg/dL (NEGATIVE) 08/30/16 12:00 Urine Blood MODERATE (NEGATIVE) H 08/30/16 12:00 Urine Nitrate NEGATIVE (NEGATIVE) 08/30/16 12:00 Urine Bilirubin NEGATIVE (NEGATIVE) 08/30/16 12:00 Urine Urobilinogen 0.2 E.U./dL (0.2 - 1.0) 08/30/16 12:00 Ur Leukocyte Esterase SMALL (NEGATIVE) H 08/30/16 12:00 Urine RBC 3-6 /hpf (0-5) 08/30/16 12:00 Urine WBC 10-25 /hpf (0-5) H 08/30/16 12:00 Ur Epithelial Cells MODERATE /lpf (FEW) 08/30/16 12:00 Urine Bacteria MANY /hpf (NONE SEEN) 08/30/16 12:00 Urine Osmolality 361 mOsmol/kg 09/05/16 17:10 Ur Random Sodium 121 mmol/L 09/05/16 17:10 Ur Random Potassium 14.0 mmol/L 09/05/16 17:10 Fluid Source PLEURAL 09/04/16 15:15 Fluid Color YELLOW 09/04/16 15:15 Fluid Appearance CLEAR 09/04/16 15:15 Fluid pH 8.0 09/04/16 15:15 Fluid WBC 0 /cumm 09/04/16 15:15 Fluid RBC 70 /cumm 09/04/16 15:15 Fluid Glucose 145.0 mg/dL 09/04/16 15:15 Fluid Total Protein 2.1 g/dL 09/04/16 15:15 Fluid LDH 113 U/L 09/04/16 15:15 Fluid Amylase 5 U/L 09/04/16 15:15 Stool Leukocyte NO WBC SEEN 08/31/16 08:10 Gentamicin Peak 6.1 ug/ml (4.0-8.0) 09/09/16 15:00 Gentamicin Trough 0.9 ug/ml (0.2-2.0) 09/13/16 08:15 - Physical Exam Vitals and I&O: Vital Signs Temp 97.1 F 09/20/16 10:29 Pulse 117 09/20/16 10:29 Resp 18 09/20/16 10:29 BP 145/74 09/20/16 08:23 Pulse Ox 95 09/20/16 08:00 Intake & Output 09/19/16 09/20/16 09/20/16 18:59 06:59 18:59 Intake Total 1920 250 Balance 1920 250 Intake: Intake, IV Amount 1920 Sodium Chloride 0.9% 1, 1920 000 ml @ 100 mls/hr IV . Q10H IZABEL Rx#:[id number] Oral 250 Other: # Voids 2 2 - Procedures Procedures: Procedures Procedure Code Date ASPIRATE PLEURA W/ IMAGING 93095 08/29/16 BRONCHOSCOPY W/BIOPSY(S) 97074 08/29/16 DRAINAGE OF LEFT MAIN BRONCHUS, ENDO, DIAGN [id number] 08/29/16 DRAINAGE OF LEFT PLEURAL CAVITY, PERCUTANEOUS APPROACH [id number] 08/29/16 EXCISION OF LEFT MAIN BRONCHUS, ENDO, DIAGN [id number] 08/29/16
--- NOTE | 2016-09-21 00:59 | Progress Notes ---
SUBJECTIVE: The patient is on oxygen via nasal cannula. The patient is on IV steroids. The patient is on antifungal medication. The patient is on IV fluids. The patient is awaiting transfer to a tertiary center. OBJECTIVE: VITAL SIGNS: Temperature 98.3, pulse 92, blood pressure 167/87, respiratory rate 18, O2 saturation 94% on oxygen via nasal cannula. CARDIOVASCULAR: S1 and S2. RESPIRATORY: Rales. GASTROINTESTINAL: Soft. Positive bowel sounds. LABORATORY DATA: Hematology: WBC 7.5, hemoglobin 12.3, hematocrit 35.8, platelet count of 142, 96% neutrophils, 2% lymphocytes, 1% monocytes. Chemistry: Sodium 140, potassium 3.8, chloride 104, bicarbonate 28, anion gap 11, BUN 12, creatinine 0.6. GFR is more than 60. Glucose is 150, calcium 8.7. MICROBIOLOGY: MRSA screen from 08/29/2016 is negative. Urine culture from 08/30/2016 shows mixed urogenital janessa including yeast. Blood culture from 08/31/2016 is negative. Stool culture from 08/31/2016 shows yeast. Shiga toxin from 08/31/2016 is negative. AFB smear from thoracentesis fluid from 09/04/2016 is negative. Thoracentesis fluid culture from 09/04/2016 is negative. Bronchial washing culture from 09/12/2016 shows normal respiratory janessa and moderate yeast resembling Beth albicans. RADIOLOGICAL TESTS: No new test. ASSESSMENT: 1. Sepsis (resolved). 2. Pancolitis (treated). 3. Pneumonia (treated). 4. Pleural effusion. 5. Hypertension. 6. Syncope secondary to dehydration (resolved). 7. History of cerebrovascular disease. 8. History of bowel resection. 9. History of tobacco abuse. 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 11. 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 12. Debility. 13. Hyperglycemia. 14. Urinary tract infection secondary to mixed urogenital janessa including yeast. PLAN: Continue current medication and treatment. Obtain labs in a.m. Awaiting transfer to tertiary center. Continue inpatient nebulizer treatment. Continue rehab therapy. Further consults. change manager will arrange for transfer to tertiary facility. JOB# [id number] [facility]
--- NOTE | 2016-09-23 10:33 | Discharge Summary ---
DISCHARGE DIAGNOSES: 1. Sepsis (resolved). 2. Pancolitis (resolved). 3. Anemia. 4. Pleural effusion. 6. Respiratory failure (acute). 7. Left lung mass secondary to small cell carcinoma. 8. Brain metastasis secondary to small cell carcinoma. 9. Oral candidiasis. 10. Acute debility. HOSPITAL COURSE: The patient admitted to [facility] on 2016 with diagnoses of abdominal pain, nausea, vomiting, diarrhea, colitis, hypertension, syncope secondary to dehydration, and azotemia. The patient will start on IV fluids. The patient received IV antibiotics for the colitis. Results of the initial CT shows a lung mass, left lung. MRI showed mets to brain. Patient transferred to tertiary facility for further care. JOB# [id number] [facility]
--- NOTE | 2016-09-24 09:40 | Progress Notes ---
SUBJECTIVE: The patient awake and alert. The patient is on IV steroids. The patient is on IV fluids. The patient is on oxygen nasal cannula. OBJECTIVE: VITAL SIGNS: Temperature 97.8, pulse of 89, blood pressure per nursing, respiratory rate 18, O2 sat 97%. CARDIOVASCULAR: S1 and S2. RESPIRATORY: Clear. ABDOMEN: Soft. Bowel sounds positive. LABORATORY DATA: Hematology: WBC per labs, hemoglobin 10.6, hematocrit per labs, platelet count per labs. Chemistry: Sodium 139, potassium 3.9, chloride 105, bicarb 28, anion gap 9.5, BUN 13, creatinine 0.6, GFR is more than 160. MICROBIOLOGY: No new microbiology results. ASSESSMENT: 1. Anemia. 3. Hypercalcemia. 4. Pancolitis, resolving. 5. Pneumonia (treated). 6. Pleural effusion. 7. Hypertension. 8. Syncope secondary to dehydration (resolved). 9. History of cerebrovascular accident. 10. Status post bowel resection. 11. History of tobacco abuse. 12. Brain metastasis secondary to small cell carcinoma. 13. Small cell carcinoma of the lung. 14. Deconditing/debility. PLAN: Continue current medications and treatment. Obtain labs in a.m. manager food safety to arrange transfer to [facility]. JOB# [id number] [facility]
--- NOTE | 2016-09-26 02:07 | Discharge Summary ---
DISCHARGE DIAGNOSES: 1. Sepsis (resolved). 2. Pancolitis (treated). 3. Pneumonia (treated). 4. Hypertension. 5. History of cerebrovascular accident. 6. Status post bowel resection. 7. Tobacco abuse. 8. 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 9. Small cell undifferentiated carcinoma of lung. 10. Debility. HOSPITAL COURSE: The patient is a 66-year-old female who was transferred from [facility] to [facility]. The patient was admitted with diagnoses of abdominal pain, nausea, vomiting, diarrhea, possible colitis, hypertension, syncopal episode secondary to dehydration and prerenal azotemia. Infectious Disease consultation was obtained with Dr. Guille Whitley, who recommended empiric coverage with Flagyl and Cipro for the patient's pancolitis. GI consultation was from Dr. Huff, who recommended antibiotics along with possible colonoscopy once C. diff has been treated. Cardiology consultation was obtained from Dr. Sissy Snyder. The patient on 09/03/2016 was short of breath and had a chest x-ray that was done, which showed complete opacification ____ along with pleural effusion and possible superimposed pneumonia. CAT scan of the chest performed on 09/03/2016 showed large abnormal soft tissue density along the left hilar region along the mediastinum. Also, there was ____ main stem bronchus, suspicion for possible neoplastic process. Hematology/Oncology consultation was obtained from Dr. Merino, who recommended bronchoscopy with biopsy and MRI of the brain to rule out brain metastasis. Pulmonary consultation was obtained from Dr. Alfonzo Whitley. CT of the head performed on 09/04/2016 showed numerous metastatic mass lesions throughout the cerebrum and cerebellum due to extensive metastatic disease. The patient was started on IV steroids by ____ to reduce brain edema. The patient underwent thoracentesis on 09/04/2016, the results were unremarkable. Brain MRI was done on 09/11/2016, which showed diffuse metastatic disease again. The patient also underwent a bronchoscopy. Pathology results from bronchoscopy showed poorly differentiated neoplasm. Immunologic studies were ordered, which also showed small cell poorly differentiated carcinoma. By recommendation from acquisition consultant, especially Hematology/Oncology, the patient required transfer to a tertiary care for further medical management of the patient's small cell undifferentiated carcinoma with metastasis of the brain. client relationship manager was consulted to arrange possible transfer to a tertiary facility. The patient ____ was transferred to ____ [facility] on 09/20/2016. JOB# [id number]
== END 2016-09-20 11:40 | disposition short-term general hospital (02) | DRG 871 ==
LOC: TELE 01:30 → MSI 09-08 03:30
PROVIDERS: ADMIT Preventive Medicine Preventive Medicine/Occupational Environmental Medicine; ATTEND Preventive Medicine Preventive Medicine/Occupational Environmental Medicine
PROC: 0W9B3ZZ Drainage of Left Pleural Cavity, Percutaneous Approach (ICD-10-PCS; principal; 2016-09-04)
PROC: 0BB78ZX Excision of Left Main Bronchus, Via Natural or Artificial Opening Endoscopic, Diagnostic (ICD-10-PCS; 2016-09-12)
PROC: 0BC78ZZ Extirpation of Matter from Left Main Bronchus, Via Natural or Artificial Opening Endoscopic (ICD-10-PCS; 2016-09-12)
DX: A41.9 Sepsis, unspecified organism (principal); J18.9 Pneumonia, unspecified organism; J96.20 Acute and chronic respiratory failure, unspecified whether with hypoxia or hypercapnia; G93.40 Encephalopathy, unspecified; J90 Pleural effusion, not elsewhere classified; A04.7 Enterocolitis due to Clostridium difficile; C79.31 Secondary malignant neoplasm of brain; C34.32 Malignant neoplasm of lower lobe, left bronchus or lung; E87.1 Hypo-osmolality and hyponatremia; J93.9 Pneumothorax, unspecified; J98.11 Atelectasis; I69.354 Hemiplegia and hemiparesis following cerebral infarction affecting left non-dominant side; K51.00 Ulcerative (chronic) pancolitis without complications; N39.0 Urinary tract infection, site not specified; E83.51 Hypocalcemia; E86.0 Dehydration; I10 Essential (primary) hypertension; D47.3 Essential (hemorrhagic) thrombocythemia; K52.9 Noninfective gastroenteritis and colitis, unspecified; I95.1 Orthostatic hypotension; D64.9 Anemia, unspecified; F17.210 Nicotine dependence, cigarettes, uncomplicated; E87.6 Hypokalemia; R73.9 Hyperglycemia, unspecified; I77.819 Aortic ectasia, unspecified site; I70.0 Atherosclerosis of aorta; M19.90 Unspecified osteoarthritis, unspecified site; E87.5 Hyperkalemia; E78.5 Hyperlipidemia, unspecified; J44.9 Chronic obstructive pulmonary disease, unspecified
CPT/HCPCS: 36415-UA; 70460-TC; 71010-TC; 71020-TC; 71250-TC; 71260-TC; 76942-TC; 80048-TC; 80053-TC; 80170-TC; 81001-TC; 82150-TC; 82436-90; 82803-TC; 82945-TC; 83036-90; 83615-TC; 83930-90; 83935-90; 83986-90; 84133-TC; 84134-90; 84157-TC; 84300-TC; 85007-TC; 85025-TC; 85027-TC; 85610-TC; 85652-TC; 85730-TC; 86141-TC; 87046-90; 87070; 87070-90; 87075-90; 87086-90; 87102-90; 87116-90; 87205-90; 87206-90; 88162-90; 88305-90; 88312-90; 89051-TC; 89055-TC; 90799; 93005; 94640; 94760; 97530; C1751; J0171; J0744; J1100; J1580; J1644; J2001; J2250; J2405; J3480; J7030; J7042; Q9967; X3904; X6026; X6494; Z7506; Z7610; Z7610-TC